=== PATIENT | female | born 1950 | race Caucasian/White ===

== ENCOUNTER → 2017-05-21 | Outpatient (CLI) | payer MEDICARE, BC, OTHER ==
--- NOTE | 2017-05-22 09:20 | MM ---
Reason for exam: screening (asymptomatic). Last mammogram was performed 1 year and 1 month ago. History: Patient is postmenopausal. Family history of premenopausal breast cancer in maternal grandmother. Physical Findings: A clinical breast exam by your physician is recommended on an annual basis and results should be correlated with mammographic findings. MG 3D Screening Mammo W/Cad Bilateral CC and MLO view(s) were taken. XCCL view(s) were taken of the left breast. Prior study comparison: April 21, 2016, bilateral MG 3d screening mammo w/cad. March 06, 2015, bilateral MG screening mammo w CAD. There are scattered fibroglandular densities. There is no discrete abnormality. ASSESSMENT: Negative, BI-RAD 1 RECOMMENDATION: Routine screening mammogram of both breasts in 1 year.
== END | disposition home or self-care (01) ==
LOC: RADMAMWWP 06:57
PROVIDERS: ATTEND Family Medicine
DX: Z12.31 Encounter for screening mammogram for malignant neoplasm of breast (principal)
CPT/HCPCS: 77063; G0202

== ENCOUNTER → 2019-09-19 | Outpatient (CLI) | payer MEDICARE, OTHER ==
--- NOTE | 2019-09-19 13:25 | BD ---
EXAMINATION TYPE: Axial Bone Density DATE OF EXAM: 09/19/2019 COMPARISON: NONE CLINICAL HISTORY: M 85.80 Height: 60.5 Weight: 236 FRAX RISK QUESTIONS: Alcohol (3 or more units per day): no Family History (Parent hip fracture): no Glucocorticoids (More than 3mos): no (Ex: prednisone, prednisolone, methylprednisolone, dexamethasone, and hydrocortisone). History of Fracture in Adulthood: yes Secondary Osteoporosis: 1. Type 1 Diabetes: no 2. Hyperthyroidism: no 3. Menopause before 45: no 4. Malnutrition: no 5. Chronic liver disease: no Rheumatoid Arthritis: no Current Tobacco Use: no RISK FACTORS HISTORY OF: Family History of Osteoporosis: yes, sister Active: yes Diet low in dairy products/other sources of calcium: no Postmenopausal woman: yes Take estrogen and/or progesterone medications: no Lost more than 2 inches in height since high school: unsure, states height may have been about 63 inc hes at one time Frequent falls: no Poor Health: no Hyperparathyroidism: no Adrenal Insufficiency: no MEDICATIONS: Prednisone or other steroids: no Thyroid Medications: yes Which medication: Levothyroxine How Long: about 20 years Additional Medications: blood pressure med, cholesterol med Additional History: fx right ankle 2009 EXAM MEASUREMENTS: Bone mineral densitometry was performed using the [employer] System. Bone mineral density as measured about the Lumbar spine is: ----- L1-L4(G/cm2): 1.415 T Score Values are as follows: ----- L2: 1.4 ----- L3: 2.9 ----- L4: 3.3 ----- L1-L4: 2.0 Bone mineral density BASELINE Bone mineral density about the R hip (g/cm2): 0.891 Bone mineral density about the L hip (g/cm2): 0.903 T Score values are as follows: -----R Neck: -1.1 -----L Neck: -1.0 -----R Total: -0.1 -----L Total: 0.3 Bone mineral density BASELINE IMPRESSION: Osteopenia (T Score between -2.5 and -1). There is slightly increased risk of fracture and the patient may be considered for treatment. Re-Screen 2-5 years. NOTE: T-SCORE=SD OF THE YOUNG ADULT MEAN.
--- NOTE | 2019-09-19 13:48 | MM ---
Reason for exam: screening (asymptomatic). Last mammogram was performed 2 years and 4 months ago. History: Patient is postmenopausal. Family history of premenopausal breast cancer in maternal grandmother. Physical Findings: A clinical breast exam by your physician is recommended on an annual basis and results should be correlated with mammographic findings. MG 3D Screening Mammo W/Cad Bilateral CC and MLO view(s) were taken. XCCL view(s) were taken of the right breast. CV view(s) were taken of the left breast. Prior study comparison: May 21, 2017, bilateral MG 3d screening mammo w/cad. April 21, 2016, bilateral MG 3d screening mammo w/cad. There are scattered fibroglandular densities. There are benign appearing round linear calcifications bilaterally. There is no discrete abnormality. ASSESSMENT: Benign, BI-RAD 2 RECOMMENDATION: Routine screening mammogram of both breasts in 1 year.
== END | disposition home or self-care (01) ==
LOC: RADMAMWWP 09:41
PROVIDERS: ATTEND Family Medicine
DX: Z12.31 Encounter for screening mammogram for malignant neoplasm of breast (principal); M85.80 Other specified disorders of bone density and structure, unspecified site
CPT/HCPCS: 77063; 77067; 77080

== ENCOUNTER → 2019-09-27 | Outpatient (CLI) | payer MEDICARE, OTHER ==
--- NOTE | 2019-09-27 09:56 | XR ---
EXAMINATION TYPE: XR chest 2V DATE OF EXAM: 09/27/2019 COMPARISON: NONE TECHNIQUE: PA and lateral views submitted. HISTORY: Shortness of breath FINDINGS: The lungs are clear and there is no pneumothorax, pleural effusion, or focal pneumonia. Heart is en larged and is atherosclerotic change aorta. No overt failure. Arthropathy of the shoulders. Hypertrop hic and degenerative change of the spine. IMPRESSION: 1. Cardiomegaly without evidence of acute infiltrate or overt failure..
== END | disposition home or self-care (01) ==
LOC: RADXRYALE 08:35
PROVIDERS: ATTEND Physician Assistant Medical
DX: I51.7 Cardiomegaly (principal)
CPT/HCPCS: 71046

== ENCOUNTER 2019-11-01 12:06 | Inpatient (IN) | payer MEDICARE, OTHER ==
[2019-11-01] MEDS ORDERED: PANTOPRAZOLE 40 MG/10 ML VIAL IVP ONE (12:23)
--- NOTE | 2019-11-01 12:51 | ED ---
General Adult HPI - General Chief complaint: Recheck/Abnormal Lab/Rx Stated complaint: Needs blood transfusion Time Seen by Provider: 11/01/19 12:22 Source: patient Mode of arrival: ambulatory Limitations: no limitations - History of Present Illness Initial comments: Dictation was produced using [employer] dictation software. please excuse any grammatical, word or spelling errors. Chief Complaint: 69-year-old female with factor V Leiden deficiency, DVTs, mitral valve prolapse presents with abnormal outpatient labs. History of Present Illness: Patient is a 61-year-old female she was sent in by primary care physician. She was seen at her primary care physician's office yesterday for routine annual checkup. She was found to have low hemoglobin with a measurement approximately 5. She has been feeling fatigued and tired for the last 3 weeks. She associated this to her bronchitis initially. She received a call earlier today and was told to come to the emergency department for likely blood transfusion. She hadn't denies any bleeding. Denies any dark melanotic stools. No nausea vomiting. She has no pain complaints. Has had anemia when she was younger to her childbearing years. The ROS documented in this emergency department record has been reviewed and confirmed by me. Those systems with pertinent positive or negative responses have been documented in the HPI. All other systems are other negative and/or noncontributory. PHYSICAL EXAM: General Impression: Alert and oriented x3, not in acute distress, slight pallor HEENT: Normocephalic atraumatic, extra-ocular movements intact, pupils equal and reactive to light bilaterally, mucous membranes moist. Cardiovascular: Heart regular rate and rhythm, S1&S2 audible, no murmurs, rubs or gallops Chest: Lungs clear to auscultation bilaterally, no rhonchi, no wheeze, no rales Abdomen: Bowel sounds present, abdomen soft, non-tender, non-distended, no organomegaly Musculoskeletal: Pulses present and equal in all extremities, no peripheral edema Motor: no focal deficits noted Neurological: CN II-XII grossly intact, no focal motor or sensory deficits noted Skin: Intact with no visualized rashes Psych: Normal affect and mood ED course: 69-year-old female presents with abnormal outpatient lab. All signs upon arrival are within acceptable limits. After evaluation obtained. Hemoglobin 5.8, INR is 2.8. Patient is on Coumadin. She not actively hemorrhaging at this time. Rectal exam showed no gross blood. There was maybe a slight dark tinged to stool sample removed. Patient's well- appearing. She denies any back pain. No concern for retroperitoneal hematoma. Lactic acid level is 1.0. Patient ordered for transfusion of 1 unit. She is given vitamin K. Patient be admitted to telemetry for further monitoring. EKG interpretation: Ventricular rate 66, normal sinus rhythm, SC interval 140, care is 108, QTc 444. No SC prolongation, no QTC prolongation, no ST or T-wave changes noted. Overall, this EKG is unremarkable - Related Data Home Medications Medication Instructions Recorded Confirmed Losartan/Hydrochlorothiazide 1 tab PO HS 12/22/14 11/01/19 [Losartan-Hctz 100-25 mg Tab] Meloxicam 7.5 mg PO HS 12/22/14 11/01/19 Atorvastatin [Lipitor] 40 mg PO HS 06/21/15 11/01/19 Warfarin Sodium [Coumadin] 6 mg PO SUMOWETHSA@209906/21/15 11/01/19 Warfarin [Coumadin] 3 mg PO TUFR@209906/21/15 11/01/19 Furosemide [Lasix] 20 mg PO DAILY 11/01/19 11/01/19 Levothyroxine Sodium [Synthroid] 137 mcg PO DAILY 11/01/19 11/01/19 Omeprazole [PriLOSEC] 40 mg PO HS 11/01/19 11/01/19 rOPINIRole HCL 3 - 9 mg PO DIRECTED 11/01/19 11/01/19 Allergies Allergy/AdvReac Type Severity Reaction Status Date / Time codeine Allergy Swelling,mi Verified 11/01/19 13:26 graine morphine Allergy Swelling,mi Verified 11/01/19 13:26 graine nifedipine [From Procardia] Allergy Swelling,mi Verified 11/01/19 13:26 graine Review of Systems ROS Statement: Those systems with pertinent positive or pertinent negative responses have been documented in the HPI. ROS Other: All systems not noted in ROS Statement are negative. Past Medical History Past Medical History: Blood Disorder, Deep Vein Thrombosis (DVT), GERD/Reflux, Hyperlipidemia, Hypertension, Mitral Valve Prolapse (MVP), Osteoarthritis (OA), Pulmonary Embolus (PE), Thyroid Disorder Additional Past Medical History / Comment(s): migraines, MVP with regurgitation, hx ulcer, hiatal hernia, Factor V Leiden, varicose veins History of Any Multi-Drug Resistant Organisms: None Reported Past Surgical History: Bariatric Surgery, Bowel Resection, Cholecystectomy, Hernia Repair, Orthopedic Surgery Additional Past Surgical History / Comment(s): GASTRIC SLEEVE,ORIF RT ANKLE,"b owel release x 2",rt cataract, vena cava filter Past Anesthesia/Blood Transfusion Reactions: Postoperative Nausea & Vomiting (PONV) Additional Past Anesthesia/Blood Transfusion Reaction / Comment(s): post op migraine for 5 days Past Psychological History: No Psychological Hx Reported Smoking Status: Former smoker Past Alcohol Use History: None Reported Past Drug Use History: None Reported - Past Family History Father Family Medical History: Cancer Mother Family Medical History: Cancer General Exam Limitations: no limitations Course Vital Signs 11/01/19 11/01/19 12:17 13:46 Temperature 97.7 F Pulse Rate 64 66 Respiratory 17 16 Rate Blood Pressure 128/63 125/62 O2 Sat by Pulse 98 100 Oximetry Medical Decision Making - Lab Data Result diagrams: 11/01/19 13:20 Lab Results 11/01/19 11/01/19 11/01/19 Range/Units 13:20 13:20 13:20 WBC 4.3 (3.8-10.6) k/uL RBC 2.86 L (3.80-5.40) m/uL Hgb 5.8 L* (11.4-16.0) gm/dL Hct 19.2 L* (34.0-46.0) % MCV 67.2 L (80.0-100.0) fL MCH 20.3 L (25.0-35.0) pg MCHC 30.2 L (31.0-37.0) g/dL RDW 15.8 H (11.5-15.5) % Plt Count 264 (150-450) k/uL Neutrophils % 61 % Lymphocytes % 28 % Monocytes % 5 % Eosinophils % 2 % Basophils % 1 % Neutrophils # 2.7 (1.3-7.7) k/uL Lymphocytes # 1.2 (1.0-4.8) k/uL Monocytes # 0.2 (0-1.0) k/uL Eosinophils # 0.1 (0-0.7) k/uL Basophils # 0.1 (0-0.2) k/uL Hypochromasia Marked Poikilocytosis Moderate Microcytosis Marked PT 27.3 H (9.0-12.0) sec INR 2.8 H (<1.2) APTT 29.8 (22.0-30.0) sec Plasma Lactic Acid Joshua 1.0 (0.7-2.0) mmol/L Disposition Clinical Impression: Anemia Disposition: ADMITTED IP TO THIS HOSP Condition: Fair Referrals: Freeman Moran DO [Primary Care Provider] - 1-2 days Decision Time: 14:12
[2019-11-01 13:38] LABS: Basophils # (A) 0.1 k/uL (0-0.2); Basophils % (A) 1 %; Eosinophils # (A) 0.1 k/uL (0-0.7); Eosinophils % (A) 2 %; Hypochromasia Marked; Lymphocytes # (A) 1.2 k/uL (1.0-4.8); Lymphocytes % (A) 28 %; MCH 20.3 pg (25.0-35.0); MCHC 30.2 g/dL (31.0-37.0); MCV 67.2 fL (80.0-100.0); Mean Platelet Volume 7.3; Microcytosis Marked; Monocytes # (A) 0.2 k/uL (0-1.0); Monocytes % (A) 5 %; Neutrophils # (A) 2.7 k/uL (1.3-7.7); Neutrophils % (A) 61 %; Platelet Count 264 k/uL (150-450); Poikilocytosis Moderate; RBC 2.86 m/uL (3.80-5.40); RDW 15.8 % (11.5-15.5); WBC 4.3 k/uL (3.8-10.6)
[2019-11-01 13:47] LABS: INR 2.8 (<1.2); Partial Thromboplastin Time 29.8 sec (22.0-30.0); Prothrombin Time 27.3 sec (9.0-12.0)
[2019-11-01 14:02] LABS: HCT 19.2 % (34.0-46.0); HGB 5.8 gm/dL (11.4-16.0)
[2019-11-01] MEDS ORDERED: PHYTONADIONE 10 MG in SODIUM CHLORIDE 0.9% 50 ML IVPB STA (14:06)
[2019-11-01] MEDS ORDERED: ONDANSETRON 4 MG/2 ML VIAL IVP PRN (14:10)
[2019-11-01] MEDS ORDERED: NALOXONE 0.4 MG/ML 1 ML VIAL IV PRN (14:10)
[2019-11-01 14:14] LABS: Calcium 9.1 mg/dL (8.4-10.2); Magnesium 2.1 mg/dL (1.6-2.3); Potassium 3.8 mmol/L (3.5-5.1)
[2019-11-01 14:44] LABS: Appearance,Urine Clear (Clear); Bilirubin,Urine Negative (Negative); Blood,Urine Negative (Negative); Color,Urine Light Yellow; Glucose,Urine (UA) Negative (Negative); Ketones,Urine Negative (Negative); Leukocyte Esterase,Urine Negative (Negative); Nitrite,Urine Negative (Negative); PH, Urine 6.5 (5.0-8.0); Protein,Urine Negative (Negative); Specific Gravity,Urine 1.007 (1.001-1.035); Urobilinogen,Urine <2.0 mg/dL (<2.0)
[2019-11-01] MEDS: SODIUM CHLORIDE 0.9% 1,000 ML IV SCH ×2 (14:54→19:59)
[2019-11-01] MEDS ORDERED: ALPRAZolam 0.25 MG TAB PO PRN (17:04)
[2019-11-01] MEDS ORDERED: TEMAZEPAM 15 MG CAP PO PRN (17:04)
[2019-11-01 17:09] LABS: Glucose,Whole Blood 100 mg/dL (75-99)
--- NOTE | 2019-11-01 17:33 | XR ---
EXAMINATION TYPE: XR chest 1V portable DATE OF EXAM: 11/01/2019 COMPARISON: 09/27/2019 HISTORY: Cough TECHNIQUE: Single view. FINDINGS: There is no heart failure nor confluent pneumonic infiltrate. Costophrenic angles are clear. There ar e chest leads. Thoracic aorta is atheromatous. IMPRESSION: No active cardiopulmonary disease. No change. Borderline cardiomegaly.
[2019-11-01] MEDS: PANTOPRAZOLE 40 MG/10 ML VIAL IVP SCH (18:04)
--- NOTE | 2019-11-01 19:00 | HP ---
HISTORY AND PHYSICAL DATE OF SERVICE: 11/01/2019. CHIEF COMPLAINTS: Weakness and anemia. HISTORY OF PRESENT ILLNESS: This 69-year-old woman with a past medical history of multiple medical problems, including history of factor V Leiden deficiency, history of DVT, GERD, hypertension, hyperlipidemia, history of mitral prolapse, history of pulmonary embolism, history of migraine, history of bariatric surgery, history of bowel resection, history of gastric sleeve, being followed by Dr. Moran in the outpatient setting, was taking Coumadin at home. The patient was sent in by the primary physician, where the patient was found to have low hemoglobin of approximately 5. The patient was complaining of weakness and tiredness recently. The patient also was taking a steroid course recently and was feeling increasingly fatigued and also had bronchitis recently. The patient also reports the she was feeling puffy and had gained some weight. Evaluation in the emergency room showed hemoglobin of 5.8, which is a drastic drop from 12.3 in the computer, and INR was 2.8. The patient was being planned to be given a unit of transfusion. Vitamin K was also given. The creatinine was 1.39 and the patient was admitted for further evaluation and treatment. There is no history of any fever, rigor or chills. No history of headache, loss of consciousness, seizures. Stool OB was positive. There is no obvious GI bleeding history of melena or melenic stools at this time. PAST MEDICAL HISTORY: Factor V Leiden deficiency, history of DVT, hypertension, hyperlipidemia, mitral valve prolapse, history of pulmonary embolism, history of migraines with weakness, mitral regurgitation. HOME MEDICATIONS: 1. Requip 3 to 9 mg p.r.n. 2. Lipitor 40 mg at bedtime. 3. Synthroid 137 mcg p.o. daily. 4. Lasix 20 mg p.o. daily. 5. Coumadin 3 mg Thursday, Thursday. 6. Coumadin 6 mg Thursday, Thursday, Thursday, , Thursday. 7. Prilosec 40 mg at bedtime. 8. Meloxicam 7.5 mg at bedtime. 9. Losartan/hydrochlorothiazide 1 tablet p.o. at bedtime. ALLERGIES: CODEINE, MORPHINE, NIFEDIPINE. FAMILY HISTORY: History of cancer in the family. SOCIAL HISTORY: Previous history of smoking. No history of alcohol intake. REVIEW OF SYSTEMS: ENT: Diminished hearing. Diminished vision. CARDIOVASCULAR SYSTEM: No angina, palpitations. RESPIRATORY SYSTEM: As mentioned earlier. GI: As mentioned earlier. : No dysuria or retention. NERVOUS SYSTEM: Generalized weakness. ALLERGY/IMMUNOLOGY: No asthma, hayfever. MUSCULOSKELETAL: As mentioned earlier. HEMATOLOGY/ONCOLOGY: As mentioned earlier. ENDOCRINE: Hypothyroidism. CONSTITUTIONAL: As mentioned earlier. DERMATOLOGY: Negative. RHEUMATOLOGY: Negative. PSYCHIATRY: As mentioned earlier. PHYSICAL EXAMINATION: Patient alert and oriented x3. Pulse is 70, blood pressure 116/48, respiration 18, temperature 98.6, pulse ox 99% on room air. HEENT: Conjunctivae pale. Oral mucosa moist. Facial puffiness present. NECK: No jugular venous distention. No carotid bruit. No lymph node enlargement. CARDIOVASCULAR SYSTEM: S1, S2 muffled. Ejection systolic murmur present. RESPIRATORY SYSTEM: Breath sounds diminished at the bases. No rhonchi. No crackles. ABDOMEN: Soft, obese, non-tender. No mass palpable. LEGS: Minimal bilateral leg edema. NERVOUS SYSTEM: Higher functions as mentioned earlier. Moves all 4 limbs. No focal motor or sensory deficit. LYMPHATICS: No lymph node palpable in neck, axillae or groin. SKIN: As mentioned earlier. JOINTS: No active deforming arthropathy. LYMPHATICS: No lymph node palpable in neck, axillae or groin. LABS: WBC 4.3, hemoglobin 5.8, MCV 67.2. INR 2.8. Creatinine 1.39. ASSESSMENT: 1. Anemia, microcytic, possibly acute on chronic gastrointestinal bleed, symptomatic. 2. Coumadin monitoring. 3. Hyponatremia. 4. Increased creatinine with chronic kidney disease, stage III possibly. 5. Stool occult blood positive. 6. History of factor V Leiden deficiency. 7. History of deep venous thrombosis. 8. History of gastroesophageal reflux disease. 9. Hypertension. 10.Hyperlipidemia. 11.History of mitral valve prolapse with mitral regurgitation. 12.History of degenerative joint disease. 13.History of pulmonary embolism. 14.Hypothyroidism. 15.History of hiatal hernia. 16.History of varicose veins. 17.History of bariatric surgery. 18.History of bowel resection. 19.History of cholecystectomy. 20.History of gastric sleeve surgery. 21.History of cataracts. 22.Remote history of nicotine dependence. 23.Obesity with body mass index of 44.7. RECOMMENDATIONS AND DISCUSSION: In this 69-year-old woman who presented with multiple complex medical issues, we will monitor the patient closely, continue the current medications. Exact etiology of anemia is unknown at this time. GI bleed is highly likely in this patient who is taking Coumadin for some time. I would recommend one unit transfusion with Lasix 40 after that. Otherwise, I would also recommend H&H q.12 and transfuse if hemoglobin is less than 7. Watch for any active bleeding ulcers. Gastroenterology consultation. I would recommend hematology/oncology consultation as well because the patient was on Coumadin because of multiple hematological reasons, as mentioned earlier. Otherwise, repeat labs, including creatinine, will be ordered. Prognosis is guarded because of multiple complex medical issues. Further recommendations to follow. A copy of this dictation is being forwarded to Dr. Moran, who is the primary physician. See orders for details. Hold anticoagulants, antiplatelets and any NSAIDs currently at this time. Empiric proton pump inhibitors have been recommended. Continue with DVT prophylaxis. Further recommendations to follow. Discussed with the patient, who understands and agrees. Further recommendations to follow. Will cut down the IV fluids. MMODL / IJN: [id number] / MTDRoger
[2019-11-01] MEDS: ATORVASTATIN 40 MG TAB PO SCH (19:59)
[2019-11-01] MEDS ORDERED: PANTOPRAZOLE 40 MG TABLET PO SCH (21:00)
[2019-11-02 00:05] LABS: Reticulocyte % 1.88 % (0.10-1.80)
[2019-11-02] MEDS: LOSARTAN-HCTZ 50-12.5 MG 1 EACH TAB PO SCH ×2 (00:20→20:24)
[2019-11-02 00:25] LABS: Anisocytosis Slight; Basophils % (A) 1 %; Eosinophils # (A) 0.2 k/uL (0-0.7); Eosinophils % (A) 4 %; Hypochromasia Marked; Lymphocytes # (A) 1.5 k/uL (1.0-4.8); Lymphocytes % (A) 31 %; MCH 20.7 pg (25.0-35.0); MCV 68.9 fL (80.0-100.0); Mean Platelet Volume 7.6; Microcytosis Marked; Monocytes # (A) 0.4 k/uL (0-1.0); Monocytes % (A) 8 %; Neutrophils # (A) 2.5 k/uL (1.3-7.7); Neutrophils % (A) 53 %; Platelet Count 240 k/uL (150-450); Poikilocytosis Moderate; RBC 3.04 m/uL (3.80-5.40); RDW 16.9 % (11.5-15.5); WBC 4.7 k/uL (3.8-10.6)
[2019-11-02 00:35] LABS: HGB 6.3 gm/dL (11.4-16.0)
[2019-11-02 01:16] LABS: % Iron Saturation 2.19 (12.00-45.00)
[2019-11-02] MEDS: LEVOTHYROXINE 137 MCG TAB PO SCH (05:34)
[2019-11-02 06:52] LABS: INR 1.3 (<1.2); Prothrombin Time 12.9 sec (9.0-12.0)
[2019-11-02 07:09] LABS: Calcium 8.9 mg/dL (8.4-10.2); Potassium 3.8 mmol/L (3.5-5.1)
[2019-11-02 07:38] LABS: Anisocytosis Slight; HCT 24.1 % (34.0-46.0); HGB 7.4 gm/dL (11.4-16.0); Hypochromasia Marked; MCH 22.3 pg (25.0-35.0); MCHC 30.8 g/dL (31.0-37.0); MCV 72.6 fL (80.0-100.0); Mean Platelet Volume 7.7; Microcytosis Moderate; Platelet Count 255 k/uL (150-450); Poikilocytosis Marked; RBC 3.33 m/uL (3.80-5.40); RDW 17.3 % (11.5-15.5); WBC 3.9 k/uL (3.8-10.6)
[2019-11-02] MEDS: FUROSEMIDE 20 MG TAB PO SCH (08:59)
[2019-11-02] MEDS: PANTOPRAZOLE 40 MG/10 ML VIAL IVP SCH (08:59)
[2019-11-02] MEDS: ACETAMINOPHEN TAB 325 MG TAB PO PRN (09:12)
[2019-11-02 09:20] LABS: Eosinophils # (M) 0.04 k/uL (0-0.7); Lymphocytes # (M) 1.33 k/uL (1.0-4.8); Monocytes # (M) 0.16 k/uL (0-1.0); Neutrophils # (M) 2.38 k/uL (1.3-7.7); Neutrophils % (M) 61 %; Nucleated Red Blood Cells 0 /100 WBC (0-0); Total Cells Counted 100
[2019-11-02] MEDS: SODIUM FERRIC GLUCONAT-SUCROSE 125 MG in SODIUM CHLORIDE 0.9% 100 ML IVPB SCH (10:12)
--- NOTE | 2019-11-02 17:53 | PN ---
PROGRESS NOTE DATE OF SERVICE: 11/02/2019 This 69-year-old woman who was admitted with weakness and anemia is being closely monitored at this time. Patient also has elevated creatinine, indicating renal failure. Hemoglobin was 5.8 and 6.3. Currently it is 7.4. The patient has received 2 units of transfusion. No chest pain. No palpitations. No fever. PHYSICAL EXAMINATION: Alert and oriented x3. Pulse 72, blood pressure 120/70, respiration 12, temperature 98.2, pulse ox 98% on room air. HEENT: Conjunctivae pale. NECK: No jugular venous distention. CARDIOVASCULAR SYSTEM: S1, S2 muffled. RESPIRATORY SYSTEM: Breath sounds diminished at the bases. A few scattered rhonchi. ABDOMEN: Soft, non-tender. LEGS: No edema. No swelling. NERVOUS SYSTEM: Diffusely weak. LABS: WBC 3.9, hemoglobin 7.4. INR is 1.3. Sodium is 136. Stool OB is positive. ASSESSMENT: 1. Anemia, microcytic; possibly acute on chronic gastrointestinal bleed, symptomatic. 2. Status post multiple transfusions. 3. Anemia; possibly blood-loss anemia. 4. Coumadin monitoring. 5. Hyponatremia. 6. Increased creatinine with chronic kidney disease, stage III possibly. 7. Stool OB positive. 8. History of factor V Leiden deficiency. 9. History of deep venous thrombosis. 10.History of gastroesophageal reflux disease. 11.Hypertension. 12.Hyperlipidemia. 13.History of mitral valve prolapse with mitral regurgitation. 14.History of degenerative joint disease. 15.History of pulmonary embolism. 16.Hypothyroidism. 17.History of hiatal hernia. 18.History of varicose veins. 19.History of bariatric surgery. 20.History of bowel resection. 21.History of cholecystectomy. 22.History of gastric sleeve surgery. 23.History of cataracts. 24.Remote history of nicotine dependence. 25.Obesity with body mass index of 44.7. RECOMMENDATIONS AND DISCUSSION: I recommend to continue current medications, continue with the monitoring, symptomatic treatment. Otherwise, repeat hemoglobin. GI consultation. Possible upper endoscopy. Dr. Mendez was also consulted. Guarded prognosis. Further recommendations to follow. MMODL / IJN: [id number] /
[2019-11-02] MEDS: ATORVASTATIN 40 MG TAB PO SCH (20:23)
[2019-11-03] MEDS: SODIUM CHLORIDE 0.9% 1,000 ML IV SCH (00:32)
--- NOTE | 2019-11-03 00:43 | P.CONS ---
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 She was subsequently diagnosed with factor V Leiden mutation. She has been on coumadin long-term since her PE and was recommended lifetime anticoagulation. she has not had any recurrence of DVT or PE since. She has been seen intermittently in the office usually for recommendations regarding anticoagulation related to her upcoming surgeries. Pt had temporary filter placed 11/21/11 this was in preparation for gastric bypass surgery which was 12/15/11. Pt had temporary filter removed 03/16/12. She was referred by Dr Viramontes for pre surgical clearance in 2014. She had been having progressive issues wih reflux, and a gastric bypass was planned. She was seen on 01/12/15. It was recommended that the patient have a temporary filter placed for the surgery, interrupted anticoagulation prior and then resume after surgery. It was also recommended that the filter be removed after surgery once the patient is back on anticoagulation. The patient did not follow-up in the office after 01/03. She states that she did have a filter placement this was a prominent 1. She subsequently became nervous and actually canceled the surgery!. She has continued on Coumadin and does home monitoring with dose adjustment by her PCP. She states that INR control has been mostly satisfactory with lower levels, generally related to dietary infractions. She does not recall any period of significantly higher than desired INRs. The patient had been feeling somewhat fatigued over the past 3 weeks. She was seen by her PCP for a regular visit and was found to have low hemoglobin in the 5 range. She was therefore sent in to the emergency room. She reported dark and occasionally black stools over the past 2-3 weeks. No other bleeding noted. Consult was therefore placed for further evaluation and recommendations Review of Systems Constitutional: Reports fatigue Eyes: denies blurred vision, denies pain Ears: deny: decreased hearing, ear discharge, earache, tinnitus Ears, nose, mouth and throat: Denies headache, Denies sore throat Cardiovascular: Reports decreased exercise tolerance Respiratory: Denies cough Gastrointestinal: Reports melena Genitourinary: Denies dysuria, Denies hematuria Menstruation: Reports postmenopausal Musculoskeletal: Reports muscle weakness Integumentary: Denies pruritus, Denies rash Neurological: Reports weakness Psychiatric: Denies anxiety, Denies depression Endocrine: Reports fatigue Hematologic/Lymphatic: Reports thrombophilia Allergic/Immunologic: Reports as per HPI Past Medical History Past Medical History: Blood Disorder, Deep Vein Thrombosis (DVT), GERD/Reflux, Hyperlipidemia, Hypertension, Mitral Valve Prolapse (MVP), Osteoarthritis (OA), Pulmonary Embolus (PE), Thyroid Disorder Additional Past Medical History / Comment(s): migraines, MVP with regurgitation, hx ulcer, hiatal hernia, Factor V Leiden, varicose veinstakes coumadin at home History of Any Multi-Drug Resistant Organisms: None Reported Past Surgical History: Bariatric Surgery, Bowel Resection, Cholecystectomy, Hernia Repair, Orthopedic Surgery Additional Past Surgical History / Comment(s): GASTRIC SLEEVE,ORIF RT ANKLE,"bowel release x 2",rt cataract, vena cava filter Past Anesthesia/Blood Transfusion Reactions: Postoperative Nausea & Vomiting (PONV) Additional Past Anesthesia/Blood Transfusion Reaction / Comm: post op migraine for 5 days Past Psychological History: No Psychological Hx Reported Smoking Status: Former smoker Past Alcohol Use History: None Reported Past Drug Use History: None Reported - Past Family History Father Family Medical History: Cancer Mother Family Medical History: Cancer Medications and Allergies Home Medications Medication Instructions Recorded Confirmed Type Losartan/Hydrochlorothiazide 1 tab PO HS 12/22/14 11/01/19 History [Losartan-Hctz 100-25 mg Tab] Meloxicam 7.5 mg PO HS 12/22/14 11/01/19 History Atorvastatin [Lipitor] 40 mg PO HS 06/21/15 11/01/19 History Warfarin Sodium [Coumadin] 6 mg PO SUMOWETHSA@209906/21/15 11/01/19 History Warfarin [Coumadin] 3 mg PO TUFR@209906/21/15 11/01/19 History Furosemide [Lasix] 20 mg PO DAILY 11/01/19 11/01/19 History Levothyroxine Sodium [Synthroid] 137 mcg PO DAILY 11/01/19 11/01/19 History Omeprazole [PriLOSEC] 40 mg PO HS 11/01/19 11/01/19 History rOPINIRole HCL 3 - 9 mg PO DIRECTED 11/01/19 11/01/19 History Allergies Allergy/AdvReac Type Severity Reaction Status Date / Time codeine Allergy Swelling,mi Verified 11/01/19 13:26 graine morphine Allergy Swelling,mi Verified 11/01/19 13:26 graine nifedipine [From Procardia] Allergy Swelling,mi Verified 11/01/19 13:26 graine Physical Exam Vitals: Vital Signs Temp Pulse Pulse Resp BP BP BP 11/02/19 16:29 62 12 11/02/19 16:21 97.8 F 62 12 126/60 11/02/19 13:52 98.2 F 72 12 126/70 11/02/19 13:48 12 11/02/19 11:09 98 F 64 18 124/71 11/02/19 08:00 97.9 F 62 18 129/65 11/02/19 05:21 98.4 F 62 18 118/77 11/02/19 04:00 68 18 11/02/19 03:52 97.8 F 60 18 113/59 11/02/19 03:03 98 F 60 16 121/65 11/02/19 02:33 97.8 F 64 18 118/60 11/02/19 02:23 97.4 F L 62 18 118/53 11/02/19 01:05 98.2 F 77 20 126/61 11/02/19 00:00 98.3 F 68 18 103/48 11/01/19 20:00 98.2 F 77 18 126/61 11/01/19 18:00 97.9 F 71 18 104/37 11/01/19 17:25 99.0 F 70 18 127/53 Pulse Ox 11/02/19 16:29 11/02/19 16:21 97 11/02/19 13:52 98 11/02/19 13:48 11/02/19 11:09 94 L 11/02/19 08:00 99 11/02/19 05:21 94 L 11/02/19 04:00 11/02/19 03:52 98 11/02/19 03:03 95 11/02/19 02:33 95 11/02/19 02:23 98 11/02/19 01:05 99 11/02/19 00:00 98 11/01/19 20:00 99 02/11/20 18:00 100 11/01/19 17:25 98 Intake and Output 11/02/19 11/02/19 11/02/19 06:59 14:59 22:59 Intake Total 530 Balance 530 Intake: Intake, IV Titration 100 Amount Sodium Chloride 0.9% 1, 100 000 ml @ 20 mls/hr IV . Q24H [facility] Rx#:[id number] Oral 120 Blood Product 310 Rc As-1 Unit 310 [id number] Other: Voiding Method Toilet # Voids 2 Weight 104 kg - Constitutional General appearance: no acute distress - EENT Eyes: EOMI, PERRLA ENT: hearing grossly normal, normal oropharynx - Neck Neck: no lymphadenopathy Thyroid: bilateral: normal size - Respiratory Respiratory: bilateral: CTA - Cardiovascular Rhythm: regular Heart sounds: normal: S1, S2 - Gastrointestinal General gastrointestinal: normal bowel sounds, soft - Integumentary Integumentary: normal - Neurologic Neurologic: CNII-XII intact - Musculoskeletal Musculoskeletal: strength equal bilaterally - Psychiatric Psychiatric: A&O x's 3, appropriate affect Results CBC & Chem 7: 11/02/19 06:11 11/02/19 06:11 Labs: Abnormal Lab Results - Last 24 Hours (Table) 11/01/19 11/01/19 11/01/19 Range/Units 13:20 13:20 13:20 RBC (3.80-5.40) m/uL Hgb (11.4-16.0) gm/dL Hct (34.0-46.0) % MCV (80.0-100.0) fL MCH (25.0-35.0) pg MCHC (31.0-37.0) g/dL RDW (11.5-15.5) % Retic Count 1.88 H (0.10-1.80) % PT (9.0-12.0) sec INR (<1.2) Sodium (137-145) mmol/L BUN (7-17) mg/dL Creatinine (0.52-1.04) mg/dL Iron 10 L (50-170) ug/dL % Saturation 2.19 L (12.00-45.00) Ferritin 3.0 L (10.0-291.0) ng/mL RBC Folate (280 - 791) ng/mL Crossmatch See Detail 11/01/19 11/01/19 11/02/19 Range/Units 13:20 23:57 06:11 RBC 3.04 L 3.33 L (3.80-5.40) m/uL Hgb 6.3 L* 7.4 L (11.4-16.0) gm/dL Hct 21.0 L 24.1 L (34.0-46.0) % MCV 68.9 L 72.6 L (80.0-100.0) fL MCH 20.7 L 22.3 L (25.0-35.0) pg MCHC 30.0 L 30.8 L (31.0-37.0) g/dL RDW 16.9 H 17.3 H (11.5-15.5) % Retic Count (0.10-1.80) % PT (9.0-12.0) sec INR (<1.2) Sodium (137-145) mmol/L BUN (7-17) mg/dL Creatinine (0.52-1.04) mg/dL Iron (50-170) ug/dL % Saturation (12.00-45.00) Ferritin (10.0-291.0) ng/mL RBC Folate 1,633 H (280 - 791) ng/mL Crossmatch 11/02/19 11/02/19 Range/Units 06:11 06:11 RBC (3.80-5.40) m/uL Hgb (11.4-16.0) gm/dL Hct (34.0-46.0) % MCV (80.0-100.0) fL MCH (25.0-35.0) pg MCHC (31.0-37.0) g/dL RDW (11.5-15.5) % Retic Count (0.10-1.80) % PT 12.9 H (9.0-12.0) sec INR 1.3 H (<1.2) Sodium 136 L (137-145) mmol/L BUN 25 H (7-17) mg/dL Creatinine 1.29 H (0.52-1.04) mg/dL Iron (50-170) ug/dL % Saturation (12.00-45.00) Ferritin (10.0-291.0) ng/mL RBC Folate (280 - 791) ng/mL Crossmatch Chest x-ray: report reviewed Assessment and Plan (1) Anemia Narrative/Plan: the patient is presenting with severe anemia that appears to be due to iron deficiency. Clinically this is most likely due to GI blood loss. Her last colonoscopy was about 2-3 years ago, while last EGD was in early 2014 - Agree with transfusion to keep hemoglobin greater than 7 Patient will need a GI workup. GI is on consult with workup planned in the near future Anticoagulation is appropriately on hold. 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 As best as she can recollect, these were all provoked. However based on her history of recurrence, and diagnosis of factor V Leiden mutation indefinite anticoagulation was recommended. She has never had any issues with tolerance before Even with a hypercoagulable condition, if her episodes are provoked, cessation of anticoagulation can be considered if the patient falls in a favorable risk group and/or has adverse events. However it would be difficult to establish now if all for episodes or not. The patient herself would feel much safer with continuing anticoagulation. We will await results of the GI workup. If the patient is found to have a treatable cause then she can resume anticoagulation if that cause can be removed. If EGD and colonoscopy are negative, then she likely has small bowel related blood loss. In that case the management would be aggressive iron supplementation. In that situation the patient can be potentially resumed on anticoagulation with close monitoring and aggressive iron supplementation, including IV. However if she develops significant recurrent anemia despite aggressive supplementation, then she would need to be discontinued. She expressed understanding of the same. Await results of GI workup for further recommendations Current Visit: Yes Status: Acute Code(s): D68.59 - OTHER PRIMARY THROMBOPHIL IA SNOMED Code(s): 043628072 Plan: Defer to the admitting service for management of her other medical problems
[2019-11-03] MEDS: ACETAMINOPHEN TAB 325 MG TAB PO PRN ×2 (03:06→13:15)
[2019-11-03 05:59] LABS: Anisocytosis Slight; Basophils % (A) 1 %; Eosinophils # (A) 0.2 k/uL (0-0.7); Eosinophils % (A) 3 %; HCT 25.5 % (34.0-46.0); HGB 7.8 gm/dL (11.4-16.0); Hypochromasia Marked; Lymphocytes # (A) 1.4 k/uL (1.0-4.8); Lymphocytes % (A) 24 %; MCH 22.2 pg (25.0-35.0); MCHC 30.5 g/dL (31.0-37.0); MCV 72.8 fL (80.0-100.0); Mean Platelet Volume 8.3; Microcytosis Moderate; Monocytes # (A) 0.4 k/uL (0-1.0); Monocytes % (A) 6 %; Neutrophils # (A) 3.6 k/uL (1.3-7.7); Neutrophils % (A) 62 %; Platelet Count 240 k/uL (150-450); Poikilocytosis Marked; RDW 18.2 % (11.5-15.5); WBC 5.8 k/uL (3.8-10.6)
[2019-11-03 06:07] LABS: INR 1.1 (<1.2)
[2019-11-03 06:11] LABS: Calcium 9.1 mg/dL (8.4-10.2); Potassium 3.7 mmol/L (3.5-5.1)
[2019-11-03] MEDS: LEVOTHYROXINE 137 MCG TAB PO SCH (06:23)
--- NOTE | 2019-11-03 07:32 | P.CONS ---
History of Present Illness - Reason for Consult Consult date: 11/02/19 Anemia Requesting physician: Hillary Álvarez - Chief Complaint Abnormal hemoglobin lab draw - History of Present Illness 69-year-old female with multiple medical comorbidities including mitral valve prolapse, hyperlipidemia, hypertension, prior DVT/PE, factor V Leiden disorder and GERD who presented to the hospital due to abnormal outpatient blood draw. The patient reports that she was feeling weak and saw her primary care physician with laboratory evaluation performed in the outpatient setting. Initially she had attributed the weakness to a recent bout of bronchitis. However, she was found to have a hemoglobin of 5.8 on laboratory evaluation. The patient is on chronic anticoagulation therapy due to her history of active 5 Leiden disorder. She reports that bowel movements have remained normal daily with no gross bleeding. She did have one dark bowel movement a few days ago. She denies any regular NSAID use, except for Mobitz which she takes nightly. Previously she had EGD on 12/2014 prior to her sleeve gastrectomy which showed gastritis and a hiatal hernia. Colonoscopy was performed in 09/2018 and significant for polyps. Stool testing on presentation was positive. Laboratory evaluation significant for WBC 3.9, hemoglobin 7.4, platelet count 255,000, INR 1.3 from 2.8 on admission, reticulocyte count 1.8, and total iron 10. Review of Systems REVIEW OF SYSTEMS: CONSTITUTIONAL: Denies any fevers, chills, weight change but had reported fatigue and generalized weakness. CARDIOVASCULAR: Denies any chest pain, palpitations high or low blood pressures RESPIRATORY: Denies any shortness of breath, hemoptysis or cough. GENITOURINARY: No dysuria or hematuria. MUSCULOSKELETAL: No focal weakness reported. SKIN: Denies any new rashes or lesions, jaundice or pallor. PSYCHIATRIC: Denies any depression or anxiety. NEUROLOGY: Denies headache, denies any new focal deficits. EARS/NOSE/THROAT: No recent hearing change, congestion, nasal discharge or sore throat. EYES: No pain in eyes, discharge or change in vision. GASTROINTESTINAL: As per HPI. Past Medical History Past Medical History: Blood Disorder, Deep Vein Thrombosis (DVT), GERD/Reflux, Hyperlipidemia, Hypertension, Mitral Valve Prolapse (MVP), Osteoarthritis (OA), Pulmonary Embolus (PE), Thyroid Disorder Additional Past Medical History / Comment(s): migraines, MVP with regurgitation, hx ulcer, hiatal hernia, Factor V Leiden, varicose veinstakes coumadin at home History of Any Multi-Drug Resistant Organisms: None Reported Past Surgical History: Bariatric Surgery, Bowel Resection, Cholecystectomy, Zach ia Repair, Orthopedic Surgery Additional Past Surgical History / Comment(s): GASTRIC SLEEVE,ORIF RT ANKLE,"bowel release x 2",rt cataract, vena cava filter Past Anesthesia/Blood Transfusion Reactions: Postoperative Nausea & Vomiting (PONV) Additional Past Anesthesia/Blood Transfusion Reaction / Comm: post op migraine for 5 days Past Psychological History: No Psychological Hx Reported Smoking Status: Former smoker Past Alcohol Use History: None Reported Past Drug Use History: None Reported - Past Family History Father Family Medical History: Cancer Mother Family Medical History: Cancer Medications and Allergies Home Medications Medication Instructions Recorded Confirmed Type Losartan/Hydrochlorothiazide 1 tab PO HS 12/22/14 11/01/19 History [Losartan-Hctz 100-25 mg Tab] Meloxicam 7.5 mg PO HS 12/22/14 11/01/19 History Atorvastatin [Lipitor] 40 mg PO HS 06/21/15 11/01/19 History Warfarin Sodium [Coumadin] 6 mg PO SUMOWETHSA@2100 06/21/15 11/01/19 History Warfarin [Coumadin] 3 mg PO TUFR@2100 06/21/15 11/01/19 History Furosemide [Lasix] 20 mg PO DAILY 11/01/19 11/01/19 History Levothyroxine Sodium [Synthroid] 137 mcg PO DAILY 11/01/19 11/01/19 History Omeprazole [PriLOSEC] 40 mg PO HS 11/01/19 11/01/19 History rOPINIRole HCL 3 - 9 mg PO DIRECTED 11/01/19 11/01/19 History Allergies Allergy/AdvReac Type Severity Reaction Status Date / Time codeine Allergy Swelling,mi Verified 11/01/19 13:26 graine morphine Allergy Swelling,mi Verified 11/01/19 13:26 graine nifedipine [From Procardia] Allergy Swelling,mi Verified 11/01/19 13:26 graine Physical Exam Vitals: Vital Signs Temp Pulse Pulse Resp BP BP BP 11/02/19 19:35 98 F 64 16 125/64 11/02/19 19:30 16 11/02/19 16:29 62 12 11/02/19 16:21 97.8 F 62 12 126/60 11/02/19 13:52 98.2 F 72 12 126/70 11/02/19 13:48 12 11/02/19 11:09 98 F 64 18 124/71 11/02/19 08:00 97.9 F 62 18 129/65 11/02/19 05:21 98.4 F 62 18 118/77 11/02/19 04:00 68 18 11/02/19 03:52 97.8 F 60 18 113/59 11/02/19 03:03 98 F 60 16 121/65 11/02/19 02:33 97.8 F 64 18 118/60 11/02/19 02:23 97.4 F L 62 18 118/53 11/02/19 01:05 98.2 F 77 20 126/61 11/02/19 00:00 98.3 F 68 18 103/48 Pulse Ox 11/02/19 19:35 97 11/02/19 19:30 11/02/19 16:29 11/02/19 16:21 97 11/02/19 13:52 98 11/02/19 13:48 11/02/19 11:09 94 L 11/02/19 08:00 99 11/02/19 05:21 94 L 11/02/19 04:00 11/02/19 03:52 98 11/02/19 03:03 95 11/02/19 02:33 95 11/02/19 02:23 98 11/02/19 01:05 99 11/02/19 00:00 98 Intake and Output 11/02/19 11/02/19 11/02/19 06:59 14:59 22:59 Intake Total 530 840 Balance 530 840 Intake: Intake, IV Titration 100 Amount Sodium Chloride 0.9% 1, 100 000 ml @ 20 mls/hr IV . Q24H [facility] Rx#:[id number] Oral 120 840 Blood Product 310 Rc As-1 Unit 310 [id number] Other: Voiding Method Toilet # Voids 2 Weight 104 kg On physical examination, patient appears comfortable in no apparent distress. HEAD: Normocephalic, atraumatic. EYES: No scleral icterus. No conjunctival injection. MOUTH: No lesions, tongue midline. NECK: Trachea midline, no gross abnormalities. CHEST: Clear to auscultation with no wheezing or rhonchi appreciated. HEART: S1-S2 appreciated. ABDOMEN: Soft, obese and nontender to palpation. Bowel sounds are positive. No organomegaly. No guarding or rigidity. EXTREMITIES: No pedal edema. SKIN: No rashes, no jaundice. NEUROLOGIC: Alert and oriented x3. No focal deficits. Results CBC & Chem 7: 11/03/19 05:46 11/03/19 05:46 Labs: Abnormal Lab Results - Last 24 Hours (Table) 11/01/19 11/01/19 11/01/19 Range/Units 13:20 13: 13:20 RBC (3.80-5.40) m/uL Hgb (11.4-16.0) gm/dL Hct (34.0-46.0) % MCV (80.0-100.0) fL MCH (25.0-35.0) pg MCHC (31.0-37.0) g/dL RDW (11.5-15.5) % Retic Count 1.88 H (0.10-1.80) % PT (9.0-12.0) sec INR (<1.2) Sodium (137-145) mmol/L BUN (7-17) mg/dL Creatinine (0.52-1.04) mg/dL Iron 10 L (50-170) ug/dL % Saturation 2.19 L (12.00-45.00) Ferritin 3.0 L (10.0-291.0) ng/mL RBC Folate (280 - 791) ng/mL Crossmatch See Detail 11/01/19 11/01/19 11/02/19 Range/Units :20 23:57 06:11 RBC 3.04 L 3.33 L (3.80-5.40) m/uL Hgb 6.3 L* 7.4 L (11.4-16.0) gm/dL Hct 21.0 L 24.1 L (34.0-46.0) % MCV 68.9 L 72.6 L (80.0-100.0) fL MCH 20.7 L 22.3 L (25.0-35.0) pg MCHC 30.0 L 30.8 L (31.0-37.0) g/dL RDW 16.9 H 17.3 H (11.5-15.5) % Retic Count (0.10-1.80) % PT (9.0-12.0) sec INR (<1.2) Sodium (137-145) mmol/L BUN (7-17) mg/dL Creatinine (0.52-1.04) mg/dL Iron (50-170) ug/dL % Saturation (12.00-45.00) Ferritin (10.0-291.0) ng/mL RBC Folate 1,633 H (280 - 791) ng/mL Crossmatch 11/02/19 11/02/19 Range/Units 06:11 06:11 RBC (3.80-5.40) m/uL Hgb (11.4-16.0) gm/dL Hct (34.0-46.0) % MCV (80.0-100.0) fL MCH (25.0-35.0) pg MCHC (31.0-37.0) g/dL RDW (11.5-15.5) % Retic Count (0.10-1.80) % PT 12.9 H (9.0-12.0) sec INR 1.3 H (<1.2) Sodium 136 L (137-145) mmol/L BUN 25 H (7-17) mg/dL Creatinine 1.29 H (0.52-1.04) mg/dL Iron (50-170) ug/dL % Saturation (12.00-45.00) Ferritin (10.0-291.0) ng/mL RBC Folate (280 - 791) ng/mL Crossmatch Chest x-ray: report reviewed (No active cardiopulmonary disease on chest x-ray) Assessment and Plan (1) Iron deficiency anemia Narrative/Plan: 61-year-old female with multiple medical comorbidities including factor V Leiden disorder on anticoagulation therapy who presented to the hospital due to outpatient laboratory draw consistent with anemia. Patient had iron studies performed also showing an iron deficiency anemia with the patient reporting some dark stool recently. She did have a colonoscopy in 09/2018 significant for polypectomy. Stool testing was positive for blood. Hemoglobin currently 7.4 with MCV 72 and MCHC 22. Last EGD done in 2014 significant for gastritis in the hiatal hernia. A known etiology with differential including peptic ulcer disease, gastritis, esophagitis, AVM or other etiology. Current Visit: Yes Status: Acute Code(s): D50.9 - IRON DEFICIENCY ANEMIA, UNSPECIFIED SNOMED Code(s): 74892898 Plan: Supportive care Clear liquid diet Nothing by mouth after midnight Continue to monitor hemoglobin and hematocrit and transfuse as needed Appreciate recommendations from hematology service Iron replacement per hematology service Protonix increased to twice a day Nothing by mouth after midnight Plan for EGD tomorrow for further evaluation Thank you for allowing us to participate in the care of the patient we will continue to follow
[2019-11-03 09:00] LABS: Methylmalonic Acid 0.39 umol/L (<0.40)
[2019-11-03] MEDS: FUROSEMIDE 20 MG TAB PO SCH (09:16)
[2019-11-03] MEDS: PANTOPRAZOLE 40 MG/10 ML VIAL IVP SCH ×2 (09:17→20:18)
[2019-11-03] MEDS: SODIUM FERRIC GLUCONAT-SUCROSE 125 MG in SODIUM CHLORIDE 0.9% 100 ML IVPB SCH (09:19)
[2019-11-03] MEDS ORDERED: LACTATED RINGERS 1,000 ML IV ONE (12:05)
[2019-11-03] MEDS ORDERED: PROPOFOL 10 MG/ML 20 ML VIAL IV ONE (12:29)
[2019-11-03] MEDS ORDERED: LIDOCAINE 1% INJ 10MG/ML (20 ML MDV) ONE (12:29)
--- NOTE | 2019-11-03 13:10 | P.PCN ---
Date of Procedure: 11/03/19 Description of Procedure: BRIEF HISTORY: 69-year-old female with multiple medical comorbidities including mitral valve prolapse, hyperlipidemia, hypertension, prior DVT/PE, factor V Leiden disorder and GERD who presented to the hospital due to abnormal outpatient blood draw. The patient reports that she was feeling weak and saw her primary care physician with laboratory evaluation performed in the outpatient setting. Initially she had attributed the weakness to a recent bout of bronchitis. However, she was found to have a hemoglobin of 5.8 on laboratory evaluation. The patient is on chronic anticoagulation therapy due to her history of active 5 Leiden disorder. She reports that bowel movements have remained normal daily with no gross bleeding. She did have one dark bowel movement a few days ago. She denies any regular NSAID use, except for Mobic which she takes nightly. Previously she had EGD on 12/2014 prior to her sleeve gastrectomy which showed gastritis and a hiatal hernia. Colonoscopy was performed in 09/2018 and significant for polyps. Stool testing on presentation was positive. Laboratory evaluation significant for WBC 3.9, hemoglobin 7.4, platelet count 255,000, INR 1.3 from 2.8 on admission, reticulocyte count 1.8, and total iron 10. PROCEDURE PERFORMED: Esophagogastroduodenoscopy with biopsy and argon plasma coagulation therapy/ERBE. PREOPERATIVE DIAGNOSIS: Melena, anemia of acute blood loss ESTIMATED BLOOD LOSS: Minimal. IV sedation per anesthesia. PROCEDURE: After informed consent was obtained, the patient was brought into the endoscopy unit. IV sedation was administered by Anesthesia under continuous monitoring. Initially the Olympus GIF-190 video endoscope was inserted into the mouth. Esophagus intubated without any difficulty. It was gradually advanced into the stomach and duodenum and carefully examined. The bulb and the second part of the duodenum appeared normal, With biopsies taken. The scope at this time was withdrawn to the stomach, adequately insufflated with air, and upon careful examination, mucosa of the antrum, body, cardia and the fundus appeared normal, With post surgical anatomy consistent with patient's history of sleeve gastrectomy. There is also focal areas of linear erythema in the antrum which were noted to be oozing blood and suggestive of gastric antral vascular ectasia which was treated with argon plasma coagulation therapy with good hemostasis achieved. The scope was then withdrawn into the esophagus. The GE junction was located at 37 cm from the incisors. The esophagus appeared normal. There were no erosions or ulcerations seen and the patient tolerated the procedure well. IMPRESSION: 1. 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 2. Duodenal biopsies. RECOMMENDATIONS: The findings of this examination were discussed with the patient. Okay for full liquid diet today. Okay for medications. Would resume patient's Coumadin tomorrow. Patient should be maintained on Protonix 40 mg twice daily indefinitely. Continue iron supplementation per hematology.
[2019-11-03] MEDS: ATORVASTATIN 40 MG TAB PO SCH (20:17)
[2019-11-03] MEDS: LOSARTAN-HCTZ 50-12.5 MG 1 EACH TAB PO SCH (20:19)
[2019-11-04] MEDS: SODIUM CHLORIDE 0.9% 1,000 ML IV SCH (00:31)
--- NOTE | 2019-11-04 06:01 | PN ---
PROGRESS NOTE DATE OF SERVICE: 11/03/2019 This 69-year-old woman who was admitted symptomatic anemia with possible GI bleed underwent EGD by Dr. Matson. EGD showed gastric antral vascular ectasia, GAVE, with oozing of blood. The patient was treated with argon plasma coagulation treatment with good hemostasis and duodenal biopsies were taken. No chest pain. No palpitations. No fever. Currently the hemoglobin is improved to 7.8. No chest pain or palpitation. PHYSICAL EXAMINATION: On exam, alert and oriented. Pulse is 63. Blood pressure 139/69, respirations 16, temperature 97.5, pulse ox 97% on room air. HEENT: Conjunctivae normal. NECK: No JVD. CARDIOVASCULAR: S1, S2 muffled. RESPIRATORY: Breath sounds diminished at the bases. No rhonchi, no crackles. ABDOMEN: Soft, obese, nontender. No mass palpable. LEGS: No edema, no swelling. NERVOUS SYSTEM: No focal deficits. LABS: Labs are at this time as mentioned earlier. Hemoglobin 7.8. Other labs are noted. Sodium 132. ASSESSMENT: 1. Anemia, microcytic possibly acute gastrointestinal bleed secondary to GAVE,gastric antral vascular ectasia, status post EGD and argon plasma coagulation therapy. 2. Status post multiple transfusions. 3. Anemia possibly blood-loss anemia. 4. Coumadin monitoring. 5. Hyponatremia. 6. Increased creatinine with chronic kidney disease stage 3 possibly. 7. Stool OB positive. 8. History of factor 5 Leiden deficiency. 9. History of deep vein thrombosis. 10.History of gastroesophageal reflux disease. 11.Hypertension. 12.Hyperlipidemia. 13.History of mitral valve prolapse with mitral regurgitation. 14.History of degenerative joint disease. 15.History of pulmonary embolism. 16.Hypothyroidism. 17.History of hiatal hernia. 18.History of varicose veins. 19.History of bariatric surgery. 20.History of bowel resection. 21.History of cholecystectomy. 22.History of gastric sleeve surgery. 23.History of cataracts. 24.Remote history of nicotine dependence. 25.Obesity with body mass index of 44.7. RECOMMENDATIONS AND DISCUSSION: Recommend to continue current medications, continue with monitoring and symptomatic treatment. Continue to monitor hemoglobin. Advance diet per Gastroenterology. Guarded prognosis because of multiple complex medical issues. Further recommendations to follow. MMODL / IJN: [id number] /
[2019-11-04] MEDS: LEVOTHYROXINE 137 MCG TAB PO SCH (06:12)
[2019-11-04 08:05] VITALS: PULSE 67; RESP 14; TEMP 98.2
[2019-11-04 08:28] LABS: Anisocytosis Moderate; Basophils % (A) 1 %; Eosinophils # (A) 0.1 k/uL (0-0.7); Eosinophils % (A) 2 %; HCT 27.3 % (34.0-46.0); HGB 8.2 gm/dL (11.4-16.0); Hypochromasia Marked; Lymphocytes # (A) 1.3 k/uL (1.0-4.8); Lymphocytes % (A) 24 %; MCH 21.7 pg (25.0-35.0); MCV 72.6 fL (80.0-100.0); Mean Platelet Volume 7.7; Microcytosis Marked; Monocytes # (A) 0.3 k/uL (0-1.0); Monocytes % (A) 6 %; Neutrophils # (A) 3.7 k/uL (1.3-7.7); Neutrophils % (A) 65 %; Platelet Count 262 k/uL (150-450); Poikilocytosis Moderate; RBC 3.77 m/uL (3.80-5.40); RDW 20.3 % (11.5-15.5); WBC 5.7 k/uL (3.8-10.6)
[2019-11-04 08:29] LABS: Prothrombin Time 10.5 sec (9.0-12.0)
[2019-11-04 08:35] LABS: Calcium 9.3 mg/dL (8.4-10.2); Potassium 3.9 mmol/L (3.5-5.1)
[2019-11-04 09:41] VITALS: BP 122/64
[2019-11-04] MEDS: SODIUM FERRIC GLUCONAT-SUCROSE 125 MG in SODIUM CHLORIDE 0.9% 100 ML IVPB SCH (09:41)
[2019-11-04] MEDS: PANTOPRAZOLE 40 MG/10 ML VIAL IVP SCH (09:42)
[2019-11-04] MEDS: FUROSEMIDE 20 MG TAB PO SCH (09:42)
--- NOTE | 2019-11-04 12:54 | P.PN ---
Subjective Progress Note Date: 11/04/19 Principal diagnosis: severe anemia in follow-up today patient states feeling rather well, status post endoscopies with a gastric ulcer treated with argon plasma coagulation. Patient denies any signs or symptoms of bleeding, nausea. Hemoglobin is stable at 8.2 today. Objective - Vital Signs Vital signs: Vital Signs Temp 98.2 F 11/04/19 08:04 Pulse 67 11/04/19 08:04 Resp 14 11/04/19 08:04 BP 122/64 11/04/19 09:38 Pulse Ox 97 11/04/19 08:04 Intake & Output 11/03/19 11/04/19 11/04/19 18:59 06:59 18:59 Intake Total 1200 Balance 1200 Intake: IV 200 Intake, IV Titration 1000 Amount Lactated Ringers 1,000 ml 1000 @ 0 mls/hr IV .[employer] Rx#:[id number] Other: Voiding Method Toilet # Voids 1 2 # Bowel Movements 0 - Constitutional General appearance: Present: average body habitus, cooperative, no acute distress - EENT Eyes: Present: anicteric sclerae, EOMI ENT: Present: hearing grossly normal - Respiratory Details: respirations even and unlabored - Cardiovascular Details: skin warm and dry, radial pulses 2+ - Integumentary Integumentary: Present: pale - Neurologic Neurologic: Present: CNII-XII intact - Musculoskeletal Musculoskeletal: Present: strength equal bilaterally - Psychiatric Psychiatric: Present: A&O x's 3, appropriate affect, intact judgment & insight - Labs CBC & Chem 7: 11/04/19 07:21 11/04/19 07:21 Labs: Abnormal Lab Results - Last 24 Hours (Table) 11/04/19 11/04/19 Range/Units 07:21 07:21 RBC 3.77 L (3.80-5.40) m/uL Hgb 8.2 L (11.4-16.0) gm/dL Hct 27.3 L (34.0-46.0) % MCV 72.6 L (80.0-100.0) fL MCH 21.7 L (25.0-35.0) pg MCHC 30.0 L (31.0-37.0) g/dL RDW 20.3 H (11.5-15.5) % Sodium 135 L (137-145) mmol/L Creatinine 1.33 H (0.52-1.04) mg/dL - Imaging and Cardiology procedure notes reviewed Assessment and Plan (1) Iron deficiency anemia Narrative/Plan: Patient has had endoscopy, identification of gastric ulcer, treated. Patient has been provided with iron supplementation. Evaluation of iron studies 4 weeks after administration of parenteral iron per guidelines. Patient will follow-up in the office in 1 month. She can follow-up when necessary if she is having symptoms of progressive anemia. She verbalized understanding Current Visit: Yes Status: Acute Priority: High Code(s): D50.9 - IRON DEFICIENCY ANEMIA, UNSPECIFIED SNOMED Code(s): 74591523 (2) Factor V Leiden Narrative/Plan: Patient has been on Coumadin chronically for the same. Bleeding source has been identified and treated. Agree with Gastroenterology the patient is okay to resume Coumadin. She will have close CBC monitoring. Patient encouraged to contact office if she is feeling symptomatic. She verbalized understanding Current Visit: Yes Status: Chronic Priority: Medium Code(s): D68.51 - ACTIVATED PROTEIN C RESISTANCE SNOMED Code(s): 058683974
--- NOTE | 2019-11-07 07:55 | P.DS ---
Providers Date of admission: 11/01/19 14:10 Expected date of discharge: 11/04/19 Attending physician: Hillary Álvarez Consults: 11/01/19 14:28 Consult Physician Routine Consulting Provider: Mick Matson Consult Reason/Comments: GI bleed Do you want consulting provider notified?: Yes 11/01/19 17:03 Consult Physician Routine Consulting Provider: Jack Mendez Consult Reason/Comments: factor v leiden Do you want consulting provider notified?: Yes Primary care physician: Freeman Moran [facility] Course: Final diagnosis Anemia, microcytic possibly acute gastrointestinal bleed secondary to GAVE, gastric antral vascular ectasia, status post EGD and argon plasma coagulation therapy Status post multiple transfusions Anemia possibly blood loss anemia Coumadin monitoring Hyponatremia Increased creatinine with chronic kidney disease stage III possibly Stool occult blood positive History of factor V BD deficiency History of deep vein thrombosis History of gastroesophageal reflux disease Hypertension Hyperlipidemia History of mitral valve prolapse with mitral regurgitation History of degenerative joint disease History of pulmonary embolism Hypothyroidism History of hiatal hernia History of varicose veins history of bariatric surgery History of bowel resection History of cholecystectomy History of gastric sleeve surgery History of cataracts Remote history of nicotine dependence Obesity with a body mass index of 44.7 Discharge disposition Patient is being discharged in a stable condition with guarded prognosis to home and will follow-up with Dr. Moran in the outpatient setting upon discharge. She will also follow-up with GI in 1-2 weeks for results. Patient will continue on Protonix twice daily along with Carafate before meals at bedtime. Total time taken is 35 minutes. History of present illness This is a 69-year-old female who was recently admitted with symptomatic anemia with possible GI bleed and was being closely monitored. Patient underwent EGD with GI showing gastric antral vascular ectasia with oozing of blood and was treated with argon plasma coagulation treatment and multiple duodenal biopsies were taken. Patient will be following up with GI Dr. Matson in the outpatient setting in 1-2 weeks for results. Patient will continue on Protonix twice daily along with Carafate before meals at bedtime until follow-up. Patient will need repeat labs in a few days to monitor PT/INR for Coumadin therapy as she is resuming Coumadin therapy upon discharge. Hemoglobin today is 8.2. Currently patient's condition is stable and is ready for discharge today. No reports of chest pain, palpitations, or shortness of breath. Patient is afebrile. No reports of nausea or vomiting and patient is tolerating diet. On exam vital signs are stable. Temp is 98.2F, pulse is 67, respirations are 14, blood pressures 126/67, oxygen saturation is 97% on room air. Cardio S1, S2 are muffled. Respiratory system shows diminished breath sounds at the bases with no wheezes or rhonchi noted. Abdomen is soft, obese, and nontender. Nervous system shows no focal deficits. Please refer to medication reconciliation sheet for a list of medications. Patient Condition at Discharge: Fair Plan - Discharge Summary Discharge Rx Participant: Yes New Discharge Prescriptions: New Sucralfate [Carafate] 1 gm PO ACHS #120 ml Pantoprazole Sodium [Protonix] 40 mg PO BID 30 Days #60 tablet. Sucralfate [Carafate] 1 gm PO ACHS #60 tablet Continue Meloxicam 7.5 mg PO HS Losartan/Hydrochlorothiazide [Losartan-Hctz 100-25 mg Tab] 1 tab PO HS Warfarin [Coumadin] 3 mg PO TUFR@2099 Warfarin Sodium [Coumadin] 6 mg PO SUMOWETHSA@2099 Atorvastatin [Lipitor] 40 mg PO HS Levothyroxine Sodium [Synthroid] 137 mcg PO DAILY Furosemide [Lasix] 20 mg PO DAILY rOPINIRole HCL 3 - 9 mg PO DIRECTED Omeprazole [PriLOSEC] 40 mg PO HS Discharge Medication List Losartan/Hydrochlorothiazide [Losartan-Hctz 100-25 mg Tab] 1 tab PO HS 12/22/14 [History] Meloxicam 7.5 mg PO HS 12/22/14 [History] Atorvastatin [Lipitor] 40 mg PO HS 06/21/15 [History] Warfarin Sodium [Coumadin] 6 mg PO SUMOWETHSA@209906/21/15 [History] Warfarin [Coumadin] 3 mg PO TUFR@209906/21/15 [History] Furosemide [Lasix] 20 mg PO DAILY 11/01/19 [History] Levothyroxine Sodium [Synthroid] 137 mcg PO DAILY 11/01/19 [History] Omeprazole [PriLOSEC] 40 mg PO HS 11/01/19 [History] rOPINIRole HCL 3 - 9 mg PO DIRECTED 11/01/19 [History] Pantoprazole Sodium [Protonix] 40 mg PO BID 30 Days #60 tablet. 11/04/19 [Rx] Sucralfate [Carafate] 1 gm PO ACHS #120 ml 11/04/19 [Rx] Sucralfate [Carafate] 1 gm PO ACHS #60 tablet 11/04/19 [Rx] Follow up Appointment(s)/Referral(s): Jack Mendez MD [STAFF PHYSICIAN] - 4 Weeks (office closed at time of discharge please call to make appointment) Freeman Moran DO [Primary Care Provider] - 11/07/19 9:20 am Mick Matson MD [STAFF PHYSICIAN] - 1 Week (office not answering at time of discharge) Ambulatory/Diagnostic Orders: Basic Metabolic Panel [LAB.AMB] Time Frame: 2 Days, Location: None Selected Complete Blood Count w/diff [LAB.AMB] Time Frame: 2 Days, Location: None Selected Prothrombin Time INR [LAB.AMB] Time Frame: 2 Days, Location: None Selected Activity/Diet/Wound Care/Special Instructions: Activity Limited until follow-up Follow-up with primary care provider upon discharge Follow-up with Dr. Mendez in the outpatient setting Follow-up with GI in the outpatient setting in 1-2 weeks Continue current diet and advance slowly as tolerated Repeat labs in 2-3 days Discharge Disposition: HOME SELF-CARE
== END 2019-11-04 13:50 | disposition home or self-care (01) | DRG 378 ==
LOC: EC 12:06 → 3SCARD 14:10 → 4SSUR 11-03 21:34
PROVIDERS: ADMIT Hospitalist; ATTEND Hospitalist
PROC: 30233N1 Transfusion of Nonautologous Red Blood Cells into Peripheral Vein, Percutaneous Approach (ICD-10-PCS; 2019-11-01)
PROC: 0DB98ZX Excision of Duodenum, Via Natural or Artificial Opening Endoscopic, Diagnostic (ICD-10-PCS; principal; 2019-11-03 10:40)
PROC: 0W3P8ZZ Control Bleeding in Gastrointestinal Tract, Via Natural or Artificial Opening Endoscopic (ICD-10-PCS; 2019-11-03 10:40)
DX: K31.811 Angiodysplasia of stomach and duodenum with bleeding (principal); D68.51 Activated protein C resistance; D68.59 Other primary thrombophilia; E87.1 Hypo-osmolality and hyponatremia; D62 Acute posthemorrhagic anemia; Z68.41 Body mass index [BMI] 40.0-44.9, adult; N18.3 Chronic kidney disease, stage 3 (moderate); I34.1 Nonrheumatic mitral (valve) prolapse; I12.9 Hypertensive chronic kidney disease with stage 1 through stage 4 chronic kidney disease, or unspecified chronic kidney disease; E78.5 Hyperlipidemia, unspecified; K21.9 Gastro-esophageal reflux disease without esophagitis; M19.90 Unspecified osteoarthritis, unspecified site; G43.909 Migraine, unspecified, not intractable, without status migrainosus; H91.90 Unspecified hearing loss, unspecified ear; H54.7 Unspecified visual loss; E03.9 Hypothyroidism, unspecified; E66.9 Obesity, unspecified; I83.90 Asymptomatic varicose veins of unspecified lower extremity; Z79.899 Other long term (current) drug therapy; Z79.890 Hormone replacement therapy; Z79.01 Long term (current) use of anticoagulants; Z86.718 Personal history of other venous thrombosis and embolism; Z98.84 Bariatric surgery status; Z86.711 Personal history of pulmonary embolism; Z86.010 Personal history of colon polyps; Z87.19 Personal history of other diseases of the digestive system; Z90.49 Acquired absence of other specified parts of digestive tract; Z98.890 Other specified postprocedural states; Z87.09 Personal history of other diseases of the respiratory system; Z87.11 Personal history of peptic ulcer disease; Z98.41 Cataract extraction status, right eye; Z95.828 Presence of other vascular implants and grafts; Z87.891 Personal history of nicotine dependence; Z88.5 Allergy status to narcotic agent; Z88.8 Allergy status to other drugs, medicaments and biological substances; Z80.9 Family history of malignant neoplasm, unspecified
CPT/HCPCS: 36415; 36430; 43239; 43270; 71045; 80048; 81003; 82272; 82607; 82728; 82747; 83540; 83550; 83605; 83735; 83921; 85025; 85045; 85610; 85730; 86850; 86900; 86901; 86920; 88305; 93005; 96361; 96365; 96375; 96376; 99285

== ENCOUNTER 2020-04-06 16:46 | Inpatient (IN) | payer MEDICARE, OTHER ==
[2020-04-06] MEDS ORDERED: PANTOPRAZOLE 40 MG/10 ML VIAL IVP ONE (16:54)
--- NOTE | 2020-04-06 17:06 | ED ---
General Adult HPI - General Chief complaint: Recheck/Abnormal Lab/Rx Stated complaint: Low hemoglobin Time Seen by Provider: 04/06/20 16:52 Source: patient Mode of arrival: ambulatory Limitations: no limitations - History of Present Illness Initial comments: Dictation was produced using [employer] dictation software. please excuse any grammatical, word or spelling errors. This patient was cared for during a federal and state declared state of emerg ency secondary to Covid 19 Chief Complaint: 70-year-old female presents with low hemoglobin History of Present Illness: 70-year-old female she has history of peptic ulcer disease. Patient reports that she was seen at her primary care physician's office recently. She presented there for exertional dyspnea. Patient had labs drawn and found have a hemoglobin 4.7. She was told to come to the emergency Department immediately. Back in October patient had similar issue where she was diagnosed with peptic ulcer disease required intervention by GI doctor. Patient has no pain complaints. She denies any symptoms at rest. The ROS documented in this emergency department record has been reviewed and confirmed by me. Those systems with pertinent positive or negative responses have been documented in the HPI. All other systems are other negative and/or noncontributory. PHYSICAL EXAM: General Impression: Alert and oriented x3, not in acute distress HEENT: Normocephalic atraumatic, extra-ocular movements intact, pupils equal and reactive to light bilaterally, mucous membranes moist. Cardiovascular: Heart regular rate and rhythm Chest: Able to complete full sentences, no retractions, no tachypnea Abdomen: abdomen soft, non-tender, non-distended, no organomegaly Musculoskeletal: Pulses present and equal in all extremities, no peripheral edema Motor: no focal deficits noted Neurological: CN II-XII grossly intact, no focal motor or sensory deficits noted Skin: Intact with no visualized rashes Psych: Normal affect and mood ED course: 70-year-old female presents with abnormal outpatient lab. As upon arrival are within acceptable limits. I do not have access to patient's most recent labs. She reports that was 4.7. We will order a set here. patient treated with Protonix. Laboratory evaluation obtained. Hemoglobin is 4.6. Differential suggest microcytosis. Coag panel shows INR of 2.1. Patient is on Coumadin. Metabolic panel was within acceptable limits. Patient given a transfusion 1 unit of blood. Patient reevaluated at bedside 5 in stable medical condition. She is not showing any signs of active hemorrhage at this time. Discussed patient case with Dr. Richmond was went except patient's care. GI on consult. - Related Data Home Medications Medication Instructions Recorded Confirmed Losartan/Hydrochlorothiazide 1 tab PO HS 12/22/14 04/06/20 [Losartan-Hctz 100-25 mg Tab] Atorvastatin [Lipitor] 40 mg PO HS 06/21/15 04/06/20 Warfarin Sodium [Coumadin] 6 mg PO SUMOWETHSA@209906/21/15 04/06/20 Warfarin [Coumadin] 3 mg PO TUFR@2100 06/21/15 04/06/20 Furosemide [Lasix] 20 mg PO DAILY@0611/01/19 04/06/20 Levothyroxine Sodium [Synthroid] 137 mcg PO DAILY@0200 11/01/19 04/06/20 Omeprazole [PriLOSEC] 40 mg PO HS 11/01/19 04/06/20 rOPINIRole HCL 3 mg PO TID PRN 11/01/19 04/06/20 Guaifen/Phenyleph/Acetaminophn 2 tab PO ONCE PRN 04/06/20 04/06/20 [Tylenol Sinus Severe Caplet] [place] Xl 2 tab PO DAILY 04/06/20 04/06/20 Allergies Allergy/AdvReac Type Severity Reaction Status Date / Time codeine Allergy Swelling,mi Verified 04/06/20 17:24 graine morphine Allergy Swelling,mi Verified 04/06/20 17:24 graine nifedipine [From Procardia] Allergy Swelling,mi Verified 04/06/20 17:24 graine Review of Systems ROS Statement: Those systems with pertinent positive or pertinent negative responses have been documented in the HPI. ROS Other: All systems not noted in ROS Statement are negative. Past Medical History Past Medical History: Blood Disorder, Deep Vein Thrombosis (DVT), GERD/Reflux, Hyperlipidemia, Hypertension, Mitral Valve Prolapse (MVP), Osteoarthritis (OA), Pulmonary Embolus (PE), Thyroid Disorder Additional Past Medical History / Comment(s): migraines, MVP with regurgitation, hx ulcer, hiatal hernia, Factor V Leiden, varicose veinstakes coumadin at home History of Any Multi-Drug Resistant Organisms: None Reported Past Surgical History: Bariatric Surgery, Bowel Resection, Cholecystectomy, Hernia Repair, Orthopedic Surgery Additional Past Surgical History / Comment(s): GASTRIC SLEEVE,ORIF RT ANKLE,"bowel release x 2",rt cataract, vena cava filter Past Anesthesia/Blood Transfusion Reactions: Postoperative Nausea & Vomiting (PONV) Additional Past Anesthesia/Blood Transfusion Reaction / Comment(s): post op migraine for 5 days Past Psychological History: No Psychological Hx Reported Smoking Status: Never smoker Past Alcohol Use History: None Reported Past Drug Use History: None Reported - Past Family History Father Family Medical History: Cancer Mother Family Medical History: Cancer General Exam Limitations: no limitations Course Vital Signs 04/06/20 04/06/20 16:48 18:04 Temperature 98.0 F Pulse Rate 74 Respiratory 20 18 Rate Blood Pressure 138/79 O2 Sat by Pulse 100 Oximetry Medical Decision Making - Lab Data Result diagrams: 04/06/20 17:40 04/06/20 17:50 Lab Results 04/06/20 04/06/20 04/06/20 Range/Units 17:40 17:50 17:50 WBC 5.0 (3.8-10.6) k/uL RBC 2.49 L (3.80-5.40) m/uL Hgb 4.6 L* (11.4-16.0) gm/dL Hct 16.4 L* (34.0-46.0) % MCV 65.8 L (80.0-100.0) fL MCH 18.4 L (25.0-35.0) pg MCHC 27.9 L (31.0-37.0) g/dL RDW 16.5 H (11.5-15.5) % Plt Count 282 (150-450) k/uL Neutrophils % 59 % Lymphocytes % 28 % Monocytes % 6 % Eosinophils % 3 % Basophils % 1 % Neutrophils # 2.9 (1.3-7.7) k/uL Lymphocytes # 1.4 (1.0-4.8) k/uL Monocytes # 0.3 (0-1.0) k/uL Eosinophils # 0.2 (0-0.7) k/uL Basophils # 0.1 (0-0.2) k/uL Hypochromasia Marked Poikilocytosis Moderate Anisocytosis Slight Microcytosis Marked PT (9.0-12.0) sec INR (<1.2) APTT (22.0-30.0) sec Sodium 132 L (137-145) mmol/L Potassium 3.9 (3.5-5.1) mmol/L Chloride 101 (98-107) mmol/L Carbon Dioxide 24 (22-30) mmol/L Anion Gap 7 mmol/L BUN 20 H (7-17) mg/dL Creatinine 1.28 H (0.52-1.04) mg/dL Est GFR (CKD-EPI)AfAm 50 (>60 ml/min/1.73 sqM) Est GFR (CKD-EPI)NonAf 43 (>60 ml/min/1.73 sqM) Glucose 90 (74-99) mg/dL Plasma Lactic Acid Joshua (0.7-2.0) mmol/L Calcium 8.9 (8.4-10.2) mg/dL Blood Type A Positive Blood Type Recheck A Pos Bld Type Recheck Status No Antibody Screen NEGATIVE Crossmatch See Detail Spec Expiration Date 04/09/2020 - 234904/06/20 04/06/20 Range/Units 18:01 18:01 WBC (3.8-10.6) k/uL RBC (3.80-5.40) m/uL Hgb (11.4-16.0) gm/dL Hct (34.0-46.0) % MCV (80.0-100.0) fL MCH (25.0-35.0) pg MCHC (31.0-37.0) g/dL RDW (11.5-15.5) % Plt Count (150-450) k/uL Neutrophils % % Lymphocytes % % Monocytes % % Eosinophils % % Basophils % % Neutrophils # (1.3-7.7) k/uL Lymphocytes # (1.0-4.8) k/uL Monocytes # (0-1.0) k/uL Eosinophils # (0-0.7) k/uL Basophils # (0-0.2) k/uL Hypochromasia Poikilocytosis Anisocytosis Microcytosis PT 20.6 H (9.0-12.0) sec INR 2.1 H (<1.2) APTT 26.6 (22.0-30.0) sec Sodium (137-145) mmol/L Potassium (3.5-5.1) mmol/L Chloride (98-107) mmol/L Carbon Dioxide (22-30) mmol/L Anion Gap mmol/L BUN (7-17) mg/dL Creatinine (0.52-1.04) mg/dL Est GFR (CKD-EPI)AfAm (>60 ml/min/1.73 sqM) Est GFR (CKD-EPI)NonAf (>60 ml/min/1.73 sqM) Glucose (74-99) mg/dL Plasma Lactic Acid Joshua 0.7 (0.7-2.0) mmol/L Calcium (8.4-10.2) mg/dL Blood Type Blood Type Recheck Bld Type Recheck Status Antibody Screen Crossmatch Spec Expiration Date Disposition Clinical Impression: Anemia Disposition: ADMITTED IP TO THIS [facility] Condition: Fair Referrals: Freeman Moran DO [Primary Care Provider] - 1-2 days Decision Time: 19:09
[2020-04-06 18:34] LABS: Calcium 8.9 mg/dL (8.4-10.2); Potassium 3.9 mmol/L (3.5-5.1)
[2020-04-06 18:40] LABS: Anisocytosis Slight; Basophils # (A) 0.1 k/uL (0-0.2); Basophils % (A) 1 %; Eosinophils # (A) 0.2 k/uL (0-0.7); Eosinophils % (A) 3 %; Hypochromasia Marked; Lymphocytes # (A) 1.4 k/uL (1.0-4.8); Lymphocytes % (A) 28 %; MCH 18.4 pg (25.0-35.0); MCHC 27.9 g/dL (31.0-37.0); MCV 65.8 fL (80.0-100.0); Mean Platelet Volume 8.1; Microcytosis Marked; Monocytes # (A) 0.3 k/uL (0-1.0); Monocytes % (A) 6 %; Neutrophils # (A) 2.9 k/uL (1.3-7.7); Neutrophils % (A) 59 %; Platelet Count 282 k/uL (150-450); Poikilocytosis Moderate; RBC 2.49 m/uL (3.80-5.40); RDW 16.5 % (11.5-15.5)
[2020-04-06 18:44] LABS: HCT 16.4 % (34.0-46.0); HGB 4.6 gm/dL (11.4-16.0)
[2020-04-06 18:55] LABS: INR 2.1 (<1.2); Partial Thromboplastin Time 26.6 sec (22.0-30.0); Prothrombin Time 20.6 sec (9.0-12.0)
[2020-04-06] MEDS ORDERED: NALOXONE 0.4 MG/ML 1 ML VIAL IV PRN (19:09)
[2020-04-06] MEDS ORDERED: PHYTONADIONE 10 MG in SODIUM CHLORIDE 0.9% 50 ML IVPB STA (19:11)
[2020-04-06] MEDS ORDERED: GUAIFEN PO PRN (21:32)
[2020-04-06] MEDS ORDERED: PHENYLEPH PO PRN (21:32)
[2020-04-06] MEDS ORDERED: ACETAMINOPHN PO PRN (21:32)
[2020-04-06] MEDS: ATORVASTATIN 40 MG TAB PO SCH (21:49)
[2020-04-07 00:03] VITALS: RESP 16
[2020-04-07 00:04] LABS: Anisocytosis Moderate; Basophils # (A) 0.1 k/uL (0-0.2); Basophils % (A) 1 %; Eosinophils # (A) 0.2 k/uL (0-0.7); Eosinophils % (A) 4 %; HCT 20.1 % (34.0-46.0); Hypochromasia Marked; Lymphocytes # (A) 1.3 k/uL (1.0-4.8); Lymphocytes % (A) 27 %; MCH 20.9 pg (25.0-35.0); MCHC 29.8 g/dL (31.0-37.0); MCV 70.2 fL (80.0-100.0); Mean Platelet Volume 8.3; Microcytosis Marked; Monocytes # (A) 0.3 k/uL (0-1.0); Monocytes % (A) 6 %; Neutrophils # (A) 2.8 k/uL (1.3-7.7); Neutrophils % (A) 59 %; Platelet Count 257 k/uL (150-450); Poikilocytosis Marked; RBC 2.87 m/uL (3.80-5.40); RDW 21.2 % (11.5-15.5); WBC 4.7 k/uL (3.8-10.6)
[2020-04-07] MEDS: LEVOTHYROXINE 137 MCG TAB PO SCH (02:50)
[2020-04-07] MEDS: FUROSEMIDE 20 MG TAB PO SCH (05:56)
[2020-04-07 08:19] LABS: Anisocytosis Moderate; HCT 23.4 % (34.0-46.0); Hypochromasia Marked; MCH 21.7 pg (25.0-35.0); MCHC 29.7 g/dL (31.0-37.0); MCV 73.1 fL (80.0-100.0); Mean Platelet Volume 7.1; Microcytosis Marked; Platelet Count 237 k/uL (150-450); Poikilocytosis Marked; RDW 20.7 % (11.5-15.5); WBC 4.3 k/uL (3.8-10.6)
[2020-04-07] MEDS: PANTOPRAZOLE 40 MG/10 ML VIAL IVP SCH ×2 (10:07→20:12)
[2020-04-07 10:08] LABS: Basophils # (M) 0.04 k/uL (0-0.2); Lymphocytes # (M) 0.82 k/uL (1.0-4.8); Monocytes # (M) 0.17 k/uL (0-1.0); Neutrophils # (M) 2.97 k/uL (1.3-7.7); Neutrophils % (M) 69 %; Nucleated Red Blood Cells 0 /100 WBC (0-0); Total Cells Counted 100
[2020-04-07 14:45] LABS: Anisocytosis Moderate; Basophils # (A) 0.1 k/uL (0-0.2); Basophils % (A) 1 %; Eosinophils # (A) 0.2 k/uL (0-0.7); Eosinophils % (A) 4 %; HCT 23.7 % (34.0-46.0); HGB 7.3 gm/dL (11.4-16.0); Hypochromasia Marked; Lymphocytes # (A) 0.8 k/uL (1.0-4.8); Lymphocytes % (A) 21 %; MCH 22.1 pg (25.0-35.0); MCHC 30.9 g/dL (31.0-37.0); MCV 71.7 fL (80.0-100.0); Mean Platelet Volume 7.1; Microcytosis Marked; Monocytes # (A) 0.3 k/uL (0-1.0); Monocytes % (A) 7 %; Neutrophils # (A) 2.5 k/uL (1.3-7.7); Neutrophils % (A) 65 %; Platelet Count 260 k/uL (150-450); Poikilocytosis Marked; RBC 3.31 m/uL (3.80-5.40); RDW 20.8 % (11.5-15.5); WBC 3.9 k/uL (3.8-10.6)
--- NOTE | 2020-04-07 16:53 | P.HPIM ---
History of Present Illness H&P Date: 04/06/20 Chief Complaint: Low hemoglobin Patient is a 70-year-old female with a known history of DVT, factor V Leiden on long-term anticoagulation with Coumadin, recent history of GI bleed and peptic ulcers in October 2019 status post EGD, osteoarthritis, hypothyroidism and other medical problems presents to ER with complaints of low hemoglobin level. Patient was seen by her primary care physician. Patient has been having exertional dyspnea recently along with shortness of breath and intermittent chest pains. Lab tests were done which showed hemoglobin level of 4.7. Patient was told to go to ER. Otherwise patient denied any complaints of nausea vomiting. No hematemesis or no melena. Denied any dysuria or hematuria. Patient had similar symptoms when she was diagnosed with peptic ulcer disease back in October 2019. Denied any symptoms at rest. No fever no chills. No cough or sputum production. No headache or dizziness or lightheadedness. Patient says that she was also having iron deficiency and did receive blood transfusions back in October. Hemoglobin was 4.6 on admission Creatinine 1.28 Review of Systems Constitutional: Patient denies any fever or chills . Patient does have generalized weakness and tiredness. Abdomen: Patient denied nausea vomiting and diarrhea and abdominal pain. Cardiovascular: Patient does have intermittent chest pains with exertion and shortness of breath and leg swelling Respiratory: patient denied any cough is from production. Positive shortness of breath Neurologic: Patient denied any numbness or tingling headache. Musculoskeletal: Patient denies any complaints of joint swelling or deformity. Skin: Negative Psychiatric: Negative Endocrine: No heat or cold intolerance. No recent weight gain. Genitourinary: No dysuria or hematuria. All other 14 point ROS negative except the above Past Medical History Past Medical History: Blood Disorder, Deep Vein Thrombosis (DVT), GERD/Reflux, Hyperlipidemia, Hypertension, Mitral Valve Prolapse (MVP), Osteoarthritis (OA), Pulmonary Embolus (PE), Thyroid Disorder Additional Past Medical History / Comment(s): migraines, MVP with regurgitation, hx ulcer, hiatal hernia, Factor V Leiden, varicose veinstakes coumadin at home History of Any Multi-Drug Resistant Organisms: None Reported Past Surgical History: Bariatric Surgery, Bowel Resection, Cholecystectomy, Hernia Repair, Orthopedic Surgery Additional Past Surgical History / Comment(s): GASTRIC SLEEVE,ORIF RT ANKLE,"b owel release x 2",rt cataract, vena cava filter Past Anesthesia/Blood Transfusion Reactions: Postoperative Nausea & Vomiting (PONV) Additional Past Anesthesia/Blood Transfusion Reaction / Comment(s): post op migraine for 5 days Past Psychological History: No Psychological Hx Reported Smoking Status: Former smoker, Never smoker Past Alcohol Use History: None Reported Past Drug Use History: None Reported - Past Family History Father Family Medical History: Cancer Mother Family Medical History: Cancer Medications and Allergies Home Medications Medication Instructions Recorded Confirmed Type Losartan/Hydrochlorothiazide 1 tab PO HS 12/22/14 04/06/20 History [Losartan-Hctz 100-25 mg Tab] Atorvastatin [Lipitor] 40 mg PO HS 06/21/15 04/06/20 History Warfarin Sodium [Coumadin] 6 mg PO SUMOWETHSA@209906/21/15 04/06/20 History Warfarin [Coumadin] 3 mg PO TUFR@2100 06/21/15 04/06/20 History Furosemide [Lasix] 20 mg PO DAILY@0600 11/01/19 04/06/20 History Levothyroxine Sodium [Synthroid] 137 mcg PO DAILY@0200 11/01/19 04/06/20 History Omeprazole [PriLOSEC] 40 mg PO HS 11/01/19 04/06/20 History rOPINIRole HCL 3 mg PO TID PRN 11/01/19 04/06/20 History Guaifen/Phenyleph/Acetaminophn 2 tab PO ONCE PRN 04/06/20 04/06/20 History [Tylenol Sinus Severe Caplet] [place] Xl 2 tab PO DAILY 04/06/20 04/06/20 History Allergies Allergy/AdvReac Type Severity Reaction Status Date / Time codeine Allergy Swelling,mi Verified 04/06/20 17:24 graine morphine Allergy Swelling,mi Verified 04/06/20 17:24 graine nifedipine [From Procardia] Allergy Swelling,mi Verified 04/06/20 17:24 graine Physical Exam Vitals: Vital Signs Temp Pulse Pulse Resp BP BP Pulse Ox 04/06/20 20:20 97.9 F 76 18 123/59 98 04/06/20 19:56 98.3 F 76 18 109/79 100 04/06/20 19:50 98.2 F 72 18 115/52 07/17/20 19:40 98.2 F 74 18 118/57 99 04/06/20 19:20 98 04/06/20 18:04 18 04/06/20 16:48 98.0 F 74 20 138/79 100 Intake and Output 04/06/20 04/06/20 04/06/20 06:59 14:59 22:59 Intake Total 0 Balance 0 Intake: Blood Product 0 Rc As-1 Unit 0 [id number] Other: Weight 107.048 kg PHYSICAL EXAMINATION: Patient is lying in the bed comfortably, no acute distress, awake alert and oriented.. HEENT: Normocephalic. Neck is supple. Pupils reactive. Nostrils clear. Oral cavity is moist. Ears reveal no drainage. Neck reveals no JVD, carotid bruits, or thyromegaly. CHEST EXAMINATION: Trachea is central. Symmetrical expansion. Lung harman clear to auscultation and percussion. CARDIAC: Normal S1, S2 with no gallops. No murmurs ABDOMEN: Soft. Bowel sounds normal. No organomegaly. No abdominal bruits. Extremities: reveal no edema. No clubbing or cyanosis Neurologically awake, alert, oriented x3 with well-coordinated movements. No focal deficits noted Skin: No rash or skin lesions. Psychiatric: Coperative. Nonsuicidal Musculoskeletal: No joint swelling or deformity. Normal range of motion. Results CBC & Chem 7: 04/07/20 14:09 04/06/20 17:50 Labs: Abnormal Lab Results - Last 24 Hours (Table) 04/06/20 04/06/20 04/06/20 Range/Units 17:40 17:50 17:50 RBC 2.49 L (3.80-5.40) m/uL Hgb 4.6 L* (11.4-16.0) gm/dL Hct 16.4 L* (34.0-46.0) % MCV 65.8 L (80.0-100.0) fL MCH 18.4 L (25.0-35.0) pg MCHC 27.9 L (31.0-37.0) g/dL RDW 16.5 H (11.5-15.5) % PT (9.0-12.0) sec INR (<1.2) Sodium 132 L (137-145) mmol/L BUN 20 H (7-17) mg/dL Creatinine 1.28 H (0.52-1.04) mg/dL Crossmatch See Detail 04/06/20 Range/Units 18:01 RBC (3.80-5.40) m/uL Hgb (11.4-16.0) gm/dL Hct (34.0-46.0) % MCV (80.0-100.0) fL MCH (25.0-35.0) pg MCHC (31.0-37.0) g/dL RDW (11.5-15.5) % PT 20.6 H (9.0-12.0) sec INR 2.1 H (<1.2) Sodium (137-145) mmol/L BUN (7-17) mg/dL Creatinine (0.52-1.04) mg/dL Crossmatch Thrombosis Risk Factor Assmnt - DVT/VTE Prophylaxis DVT/VTE Prophylaxis: Mechanical Prophylaxis ordered Assessment and Plan Assessment: Symptomatic anemia Acute blood loss anemia likely due to GI bleed History of peptic ulcer disease diagnosed in October 2019 History of factor V Leiden on long-term antibiotics with Coumadin Hypertension Hyperlipidemia GERD History of mitral prolapse Are sure that it is Hypothyroidism History of PE History of gastric sleeve surgery, vena cava filter placement Previous history of smoking Morbid obesity BMI 44.4 DVT prophylaxis with SCDs Plan: Patient will be continued on IV hydration and transfuse with 3 units of PRBC to keep the hemoglobin around 7. Anticoagulation is on hold. Continue with PPI IV twice a day and nothing by mouth. Gastrology was consulted. Monitor closely and further recommendations based on the clinical course. Prognosis is guarded. Time with Patient: Greater than 30
[2020-04-07] MEDS: ACETAMINOPHEN TAB 325 MG TAB PO PRN ×2 (16:54→22:57)
[2020-04-07] MEDS: ATORVASTATIN 40 MG TAB PO SCH (20:12)
[2020-04-07] MEDS ORDERED: ATORVASTATIN 40 MG TAB PO SCH (21:00)
[2020-04-07 22:57] LABS: % Iron Saturation 5.75 (12.00-45.00)
[2020-04-07 23:04] LABS: Ferritin 4.7 ng/mL (10.0-291.0)
--- NOTE | 2020-04-08 00:11 | P.PN ---
Subjective Progress Note Date: 04/07/20 Principal diagnosis: Symptomatic anemia Acute blood loss anemia and GI bleed and peptic ulcer disease Patient is a 70-year-old female with a known history of DVT, factor V Leiden on long-term anticoagulation with Coumadin, recent history of GI bleed and peptic ulcers in October 2019 status post EGD, osteoarthritis, hypothyroidism and other medical problems presents to ER with complaints of low hemoglobin level. Patient was seen by her primary care physician. Patient has been having exertional dyspnea recently along with shortness of breath and intermittent chest pains. Lab tests were done which showed hemoglobin level of 4.7. Patient was told to go to ER. Otherwise patient denied any complaints of nausea vomiting. No hematemesis or no melena. Denied any dysuria or hematuria. Patient had similar symptoms when she was diagnosed with peptic ulcer disease back in October 2019. Denied any symptoms at rest. No fever no chills. No cough or sputum production. No headache or dizziness or lightheadedness. Patient says that she was also having iron deficiency and did receive blood transfusions back in October. Hemoglobin was 4.6 on admission Creatinine 1.28 04/07/2020 Patient is currently lying in the bed comfortably. Feels better compared to yesterday. Hemoglobin did improve to 7. With 2 units of PRBC transfusion.0 patient is being continued on IV hydration and blood pressure is stable. Patient was also found to have iron deficiency. Gastroenterology is planning for EGD. Current medications reviewed. Objective - Vital Signs Vital signs: Vital Signs Temp 96.8 F L 04/07/20 16:52 Pulse 60 04/07/20 16:52 Resp 16 04/07/20 16:52 BP 129/61 04/07/20 16:52 Pulse Ox 98 04/07/20 16:52 Intake & Output 04/06/20 04/07/20 04/07/20 18:59 06:59 18:59 Intake Total 620 Balance 620 Weight 107.048 kg 106.7 kg Intake: Blood Product 620 As-1 Unit 310 [id number] As-1 Unit 310 [id number] Other: Voiding Method Toilet Toilet # Voids 1 - Exam PHYSICAL EXAMINATION: Patient is lying in the bed comfortably, no acute distress, awake alert and oriented.. HEENT: Normocephalic. Neck is supple. Pupils reactive. Nostrils clear. Oral cavity is moist. Ears reveal no drainage. Neck reveals no JVD, carotid bruits, or thyromegaly. CHEST EXAMINATION: Trachea is central. Symmetrical expansion. Lung harman clear to auscultation and percussion. CARDIAC: Normal S1, S2 with no gallops. No murmurs ABDOMEN: Soft. Bowel sounds normal. No organomegaly. No abdominal bruits. Extremities: reveal no edema. No clubbing or cyanosis Neurologically awake, alert, oriented x3 with well-coordinated movements. No focal deficits noted Skin: No rash or skin lesions. Psychiatric: Coperative. Nonsuicidal Musculoskeletal: No joint swelling or deformity. Normal range of motion. - Labs CBC & Chem 7: 04/07/20 14:09 04/06/20 17:50 Labs: Abnormal Lab Results - Last 24 Hours (Table) 04/06/20 04/06/20 04/06/20 Range/Units 17:40 17:50 17:50 RBC 2.49 L (3.80-5.40) m/uL Hgb 4.6 L* (11.4-16.0) gm/dL Hct 16.4 L* (34.0-46.0) % MCV 65.8 L (80.0-100.0) fL MCH 18.4 L (25.0-35.0) pg MCHC 27.9 L (31.0-37.0) g/dL RDW 16.5 H (11.5-15.5) % Lymphocytes # (1.0-4.8) k/uL Lymphocytes # (Manual) (1.0-4.8) k/uL PT (9.0-12.0) sec INR (<1.2) Sodium 132 L (137-145) mmol/L BUN 20 H (7-17) mg/dL Creatinine 1.28 H (0.52-1.04) mg/dL Crossmatch See Detail 04/06/20 04/06/20 04/07/20 Range/Units 18:01 23:45 07:03 RBC 2.87 L 3.20 L (3.80-5.40) m/uL Hgb 6.0 L* 7.0 L (11.4-16.0) gm/dL Hct 20.1 L 23.4 L (34.0-46.0) % MCV 70.2 L 73.1 L (80.0-100.0) fL MCH 20.9 L 21.7 L (25.0-35.0) pg MCHC 29.8 L 29.7 L (31.0-37.0) g/dL RDW 21.2 H 20.7 H (11.5-15.5) % Lymphocytes # (1.0-4.8) k/uL Lymphocytes # (Manual) 0.82 L (1.0-4.8) k/uL PT 20.6 H (9.0-12.0) sec INR 2.1 H (<1.2) Sodium (137-145) mmol/L BUN (7-17) mg/dL Creatinine (0.52-1.04) mg/dL Crossmatch 04/07/20 Range/Units 14:09 RBC 3.31 L (3.80-5.40) m/uL Hgb 7.3 L (11.4-16.0) gm/dL Hct 23.7 L (34.0-46.0) % MCV 71.7 L (80.0-100.0) fL MCH 22.1 L (25.0-35.0) pg MCHC 30.9 L (31.0-37.0) g/dL RDW 20.8 H (11.5-15.5) % Lymphocytes # 0.8 L (1.0-4.8) k/uL Lymphocytes # (Manual) (1.0-4.8) k/uL PT (9.0-12.0) sec INR (<1.2) Sodium (137-145) mmol/L BUN (7-17) mg/dL Creatinine (0.52-1.04) mg/dL Crossmatch Assessment and Plan Assessment: Symptomatic anemia Acute blood loss anemia likely due to GI bleed Microcytic iron deficiency anemia History of peptic ulcer disease diagnosed in October 2019 History of factor V Leiden on long-term antibiotics with Coumadin Hypertension Hyperlipidemia GERD History of mitral prolapse Are sure that it is Hypothyroidism History of PE History of gastric sleeve surgery, vena cava filter placement Previous history of smoking Morbid obesity BMI 44.4 DVT prophylaxis with SCDs Plan: Patient will be continued on IV hydration. Patient is status post 2 units of PRBC transfusion.. Anticoagulation is on hold. Continue with PPI IV twice a day and nothing by mouth. Gastrology Is planning for EGD. Continue with iron IV supplementation.. Monitor closely and further recommendations based on the clinical course. Prognosis is guarded. Time with Patient: Greater than 30
[2020-04-08] MEDS: LEVOTHYROXINE 137 MCG TAB PO SCH (02:59)
[2020-04-08] MEDS: FUROSEMIDE 20 MG TAB PO SCH (06:14)
[2020-04-08] MEDS ORDERED: LIDOCAINE 1% INJ 10MG/ML (20 ML MDV) ONE (07:51)
[2020-04-08] MEDS ORDERED: fentaNYL (PF) 50 MCG/ML 2 ML AMP ONE (07:51)
[2020-04-08] MEDS ORDERED: PROPOFOL 10 MG/ML 20 ML VIAL IV ONE (07:51)
[2020-04-08] MEDS ORDERED: MIDAZOLAM 2 MG/2 ML VIAL ONE (07:51)
[2020-04-08] MEDS ORDERED: LACTATED RINGERS 1,000 ML IV ONE (07:54)
--- NOTE | 2020-04-08 08:50 | P.CONS ---
History of Present Illness - Reason for Consult Consult date: 04/07/20 Anemia Requesting physician: Nayan Richmond - Chief Complaint Anemia - History of Present Illness 70-year-old female with multiple medical comorbidities including mitral valve prolapse, hyperlipidemia, hypertension, prior DVT/PE, factor V Leiden disorder and GERD who presented to the hospital due to anemia found on an outpatient laboratory evaluation. The patient reports feeling extremely fatigued prior to presentation. She reports she could not take 12 steps going to her bathroom without becoming somewhat short of breath. The patient is on chronic anticoagulation therapy due to her history of factor V Leiden disorder. The patient previously underwent EGD on 12/2014 prior to her sleeve gastrectomy which showed gastritis and a hiatal hernia. Colonoscopy was performed on 09/2018 and significant for polyps. 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 Patient extremely anemic with hemoglobin of 4.6 on current presentation. She is status post transfusion of packed red blood cells. She continues to deny any signs or symptoms of GI bleeding, no constipation, diarrhea, hematochezia, melena, hematemesis or coffee-ground emesis reported. Review of Systems REVIEW OF SYSTEMS: CONSTITUTIONAL: Denies any fevers, chills, weight change but she does report extreme fatigue. CARDIOVASCULAR: Denies any chest pain, palpitations high or low blood pressures RESPIRATORY: Denies any hemoptysis or cough but does report shortness of breath worse with movement or exertion. GENITOURINARY: No dysuria or hematuria. MUSCULOSKELETAL: No focal weakness reported. SKIN: Denies any new rashes or lesions, jaundice or pallor. PSYCHIATRIC: Denies any depression or anxiety. NEUROLOGY: Denies headache, denies any new focal deficits. EARS/NOSE/THROAT: No recent hearing change, congestion, nasal discharge or sore throat. EYES: No pain in eyes, discharge or change in vision. GASTROINTESTINAL: As per HPI. Past Medical History Past Medical History: Blood Disorder, Deep Vein Thrombosis (DVT), GERD/Reflux, Hyperlipidemia, Hypertension, Mitral Valve Prolapse (MVP), Osteoarthritis (OA), Pulmonary Embolus (PE), Thyroid Disorder Additional Past Medical History / Comment(s): migraines, MVP with regurgitation, hx ulcer, hiatal hernia, Factor V Leiden, varicose veinstakes coumadin at home History of Any Multi-Drug Resistant Organisms: None Reported Past Surgical History: Bariatric Surgery, Bowel Resection, Cholecystectomy, Hernia Repair, Orthopedic Surgery Additional Past Surgical History / Comment(s): GASTRIC SLEEVE,ORIF RT ANKLE,"bowel release x 2",rt cataract, vena cava filter Past Anesthesia/Blood Transfusion Reactions: Postoperative Nausea & Vomiting (PONV) Additional Past Anesthesia/Blood Transfusion Reaction / Comm: post op migraine for 5 days Past Psychological History: No Psychological Hx Reported Smoking Status: Former smoker, Never smoker Past Alcohol Use History: None Reported Past Drug Use History: None Reported - Past Family History Father Family Medical History: Cancer Mother Family Medical History: Cancer Medications and Allergies Home Medications Medication Instructions Recorded Confirmed Type Losartan/Hydrochlorothiazide 1 tab PO HS 12/22/14 04/06/20 History [Losartan-Hctz 100-25 mg Tab] Atorvastatin [Lipitor] 40 mg PO HS 06/21/15 04/06/20 History Warfarin Sodium [Coumadin] 6 mg PO SUMOWETHSA@209906/21/15 04/06/20 History Warfarin [Coumadin] 3 mg PO TUFR@2100 06/21/15 04/06/20 History Furosemide [Lasix] 20 mg PO DAILY@0600 11/01/19 04/06/20 History Levothyroxine Sodium [Synthroid] 137 mcg PO DAILY@0200 11/01/19 04/06/20 History Omeprazole [PriLOSEC] 40 mg PO HS 11/01/19 04/06/20 History rOPINIRole HCL 3 mg PO TID PRN 11/01/19 04/06/20 History Guaifen/Phenyleph/Acetaminophn 2 tab PO ONCE PRN 04/06/20 04/06/20 History [Tylenol Sinus Severe Caplet] [place] Xl 2 tab PO DAILY 04/06/20 04/06/20 History Allergies Allergy/AdvReac Type Severity Reaction Status Date / Time codeine Allergy Swelling,mi Verified 04/06/20 17:24 graine morphine Allergy Swelling,mi Verified 04/06/20 17:24 graine nifedipine [From Procardia] Allergy Swelling,mi Verified 04/06/20 17:24 graine Physical Exam Vitals: Vital Signs Temp Pulse Pulse Resp BP BP Pulse Ox 04/07/20 08:20 98 F 60 16 102/69 97 04/07/20 06:24 64 16 105/68 94 L 04/07/20 05:19 97.9 F 61 16 122/69 98 04/07/20 04:00 98.0 F 86 16 114/73 96 04/07/20 02:49 98.0 F 67 16 114/73 96 04/07/20 02:19 97.8 F 69 16 99/62 99 04/07/20 02:09 98.1 F 68 16 91/56 04/07/20 00:00 98.0 F 69 16 104/69 99 04/06/20 21:55 98.3 F 72 17 109/76 99 04/06/20 20:20 97.9 F 76 18 123/59 98 04/06/20 19:56 98.3 F 76 18 109/79 100 04/06/20 19:50 98.2 F 72 18 115/52 04/06/20 19:40 98.2 F 74 18 118/57 99 04/06/20 19:20 98 04/06/20 18:04 18 04/06/20 16:48 98.0 F 74 20 138/79 100 Intake and Output 04/06/20 04/07/20 04/07/20 22:59 06:59 14:59 Intake Total 310 310 Balance 310 310 Intake: Blood Product 310 310 Rc As-1 Unit 310 [id number] Rc As-1 Unit 310 [id number] Other: Voiding Method Toilet Toilet Weight 107.048 kg 106.7 kg On physical examination, patient appears comfortable in no apparent distress. HEAD: Normocephalic, atraumatic. EYES: No scleral icterus. No conjunctival injection. MOUTH: No lesions, tongue midline. NECK: Trachea midline, no gross abnormalities. CHEST: Clear to auscultation with no wheezing or rhonchi appreciated. HEART: S1-S2 appreciated. ABDOMEN: Soft, obese. Bowel sounds are positive. No organomegaly. No guarding o r rigidity. EXTREMITIES: No pedal edema. SKIN: No rashes, no jaundice. NEUROLOGIC: Alert and oriented x3. No focal deficits. Results CBC & Chem 7: 04/07/20 14:09 04/06/20 17:50 Labs: Abnormal Lab Results - Last 24 Hours (Table) 04/06/20 04/06/20 04/06/20 Range/Units 17:40 17:50 17:50 RBC 2.49 L (3.80-5.40) m/uL Hgb 4.6 L* (11.4-16.0) gm/dL Hct 16.4 L* (34.0-46.0) % MCV 65.8 L (80.0-100.0) fL MCH 18.4 L (25.0-35.0) pg MCHC 27.9 L (31.0-37.0) g/dL RDW 16.5 H (11.5-15.5) % Lymphocytes # (Manual) (1.0-4.8) k/uL PT (9.0-12.0) sec INR (<1.2) Sodium 132 L (137-145) mmol/L BUN 20 H (7-17) mg/dL Creatinine 1.28 H (0.52-1.04) mg/dL Crossmatch See Detail 04/06/20 04/06/20 04/07/20 Range/Units 18:01 23:45 07:03 RBC 2.87 L 3.20 L (3.80-5.40) m/uL Hgb 6.0 L* 7.0 L (11.4-16.0) gm/dL Hct 20.1 L 23.4 L (34.0-46.0) % MCV 70.2 L 73.1 L (80.0-100.0) fL MCH 20.9 L 21.7 L (25.0-35.0) pg MCHC 29.8 L 29.7 L (31.0-37.0) g/dL RDW 21.2 H 20.7 H (11.5-15.5) % Lymphocytes # (Manual) 0.82 L (1.0-4.8) k/uL PT 20.6 H (9.0-12.0) sec INR 2.1 H (<1.2) Sodium (137-145) mmol/L BUN (7-17) mg/dL Creatinine (0.52-1.04) mg/dL Crossmatch Assessment and Plan (1) Iron deficiency anemia Narrative/Plan: 70-year-old female with multiple medical comorbidities including mitral valve prolapse, hyperlipidemia, hypertension, prior DVT/PE, factor V Leiden disorder and GERD who presented to the hospital due to anemia found on an outpatient laboratory evaluation. Colonoscopy was performed on 09/2018 and significant for polyps. 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 Iron studies were ordered and significant for iron deficiency anemia and the patient has been started on iron supplementation. Suspicion is for bleeding from vascular ectasia previously noted on EGD, differential also includes peptic ulcer disease, small bowel angiectasia, esophagitis or other etiology. Current Visit: No Status: Acute Priority: High Code(s): D50.9 - IRON DEFICIENCY ANEMIA, UNSPECIFIED SNOMED Code(s): 41576245 (2) Gastric antral vascular ectasia Current Visit: Yes Status: Acute Code(s): K31.819 - ANGIODYSPLASIA OF STOMACH AND DUODENUM WITHOUT BLEEDING SNOMED Code(s): 51075378 (3) Factor V Leiden Current Visit: No Status: Chronic Priority: Medium Code(s): D68.51 - ACTIVATED PROTEIN C RESISTANCE SNOMED Code(s): 094348435 Plan: Supportive care Clear liquid diet Nothing by mouth after midnight Plan for EGD tomorrow for further evaluation and possible argon plasma coagulation therapy of vascular ectasia Continue to monitor hemoglobin and hematocrit and transfuse as needed Iron studies ordered to evaluate for iron deficiency Possible small bowel capsule endoscopy pending findings of EGD Thank you for allowing us to participate in the care of the patient we will continue to follow
[2020-04-08] MEDS: SODIUM FERRIC GLUCONAT-SUCROSE 125 MG in SODIUM CHLORIDE 0.9% 100 ML IVPB SCH (08:59)
[2020-04-08] MEDS: PANTOPRAZOLE 40 MG/10 ML VIAL IVP SCH ×2 (09:00→21:36)
--- NOTE | 2020-04-08 09:02 | P.PCN ---
Date of Procedure: 04/08/20 Description of Procedure: BRIEF HISTORY: 70-year-old female with multiple medical comorbidities including mitral valve prolapse, hyperlipidemia, hypertension, prior DVT/PE, factor V Leiden disorder and GERD who presented to the hospital due to anemia found on an outpatient laboratory evaluation. The patient reports feeling extremely fatigued prior to presentation. She reports she could not take 12 steps going to her bathroom without becoming somewhat short of breath. The patient is on chronic anticoagulation therapy due to her history of factor V Leiden disorder. The patient previously underwent EGD on 12/2014 prior to her sleeve gastrectomy which showed gastritis and a hiatal hernia. Colonoscopy was performed on 09/2018 and significant for polyps. 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 Patient extremely anemic with hemoglobin of 4.6 on current presentation. She is status post transfusion of packed red blood cells. She continues to deny any signs or symptoms of GI bleeding, no constipation, diarrhea, hematochezia, melena, hematemesis or coffee-ground emesis reported. PROCEDURE PERFORMED: Esophagogastroduodenoscopy with biopsy and argon plasma coagulation therapy/ERBE. PREOPERATIVE DIAGNOSIS: Iron deficiency anemia ESTIMATED BLOOD LOSS: Minimal. IV sedation per anesthesia. PROCEDURE: After informed consent was obtained, the patient was brought into the endoscopy unit. IV sedation was administered by Anesthesia under continuous monitoring. Initially the Olympus GIF-190 video endoscope was inserted into the mouth. Esophagus intubated without any difficulty. It was gradually advanced into the stomach and duodenum and carefully examined. The bulb and the second part of the duodenum appeared normal, With biopsies taken. The scope at this time was withdrawn to the stomach, adequately insufflated with air, and upon careful examination, mucosa of the antrum, body, cardia and the fundus appeared normal, With post surgical anatomy consistent with patient's history of sleeve gastrectomy. There is also focal areas of linear erythema in the antrum which were noted to be oozing blood and suggestive of gastric antral vascular ectasia which was treated with argon plasma coagulation therapy with good hemostasis achieved. The scope was then withdrawn into the esophagus. The GE junction was located at 37 cm from the incisors. The esophagus appeared normal. There were no erosions or ulcerations seen and the patient tolerated the procedure well. IMPRESSION: 1. 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 RECOMMENDATIONS: The findings of this examination were discussed with the patient. Okay for full liquid diet today. Okay for medications. Would resume patient's Coumadin tomorrow. Continue Protonix therapy. Would recommend patient be DC'd on PPI therapy. We'll proceed to video capsule endoscopy to rule out any small bowel bleeding although suspicion is that anemia is secondary to oozing from gastric antral vascular ectasia. Continue IV Ferrlecit.
[2020-04-08] MEDS ORDERED: SIMETHICONE 40 MG/0.6 ML DROPS 2,000 MG/30 ML BOTTLE PO ONE ×2 (10:55→11:58)
[2020-04-08 11:29] LABS: Anisocytosis Moderate; Basophils % (A) 1 %; Eosinophils # (A) 0.2 k/uL (0-0.7); Eosinophils % (A) 5 %; HCT 27.5 % (34.0-46.0); Hypochromasia Marked; Lymphocytes % (A) 23 %; MCH 20.9 pg (25.0-35.0); MCHC 29.2 g/dL (31.0-37.0); MCV 71.6 fL (80.0-100.0); Microcytosis Marked; Monocytes # (A) 0.4 k/uL (0-1.0); Monocytes % (A) 8 %; Neutrophils # (A) 2.6 k/uL (1.3-7.7); Neutrophils % (A) 59 %; Platelet Count 252 k/uL (150-450); Poikilocytosis Marked; RBC 3.83 m/uL (3.80-5.40); RDW 21.4 % (11.5-15.5); WBC 4.4 k/uL (3.8-10.6)
[2020-04-08] MEDS: ATORVASTATIN 40 MG TAB PO SCH (21:35)
[2020-04-09] MEDS: LEVOTHYROXINE 137 MCG TAB PO SCH (02:22)
[2020-04-09] MEDS: FUROSEMIDE 20 MG TAB PO SCH (05:58)
[2020-04-09 08:22] LABS: Anisocytosis Moderate; Basophils # (A) 0.1 k/uL (0-0.2); Basophils % (A) 1 %; Eosinophils # (A) 0.2 k/uL (0-0.7); Eosinophils % (A) 3 %; HCT 27.4 % (34.0-46.0); Hypochromasia Marked; Lymphocytes # (A) 1.1 k/uL (1.0-4.8); Lymphocytes % (A) 17 %; MCH 21.1 pg (25.0-35.0); MCHC 29.3 g/dL (31.0-37.0); Mean Platelet Volume 7.1; Microcytosis Marked; Monocytes # (A) 0.3 k/uL (0-1.0); Monocytes % (A) 4 %; Neutrophils # (A) 4.9 k/uL (1.3-7.7); Neutrophils % (A) 73 %; Platelet Count 255 k/uL (150-450); Poikilocytosis Marked; RDW 22.8 % (11.5-15.5); WBC 6.7 k/uL (3.8-10.6)
[2020-04-09 08:36] LABS: Potassium 3.7 mmol/L (3.5-5.1)
[2020-04-09] MEDS: PANTOPRAZOLE 40 MG/10 ML VIAL IVP SCH (08:41)
[2020-04-09 08:48] VITALS: TEMP 98
[2020-04-09] MEDS: SODIUM FERRIC GLUCONAT-SUCROSE 125 MG in SODIUM CHLORIDE 0.9% 100 ML IVPB SCH (09:46)
[2020-04-09 11:55] VITALS: BP 139/78; PULSE 65
--- NOTE | 2020-04-09 15:25 | PN ---
PROGRESS NOTE DATE OF DICTATION: 04/09/2020: The patient is a 70-year-old pleasant white female admitted to the hospital with severe anemia with a hemoglobin of 7.5, requiring 2 units of PRBC transfusion. She underwent an upper endoscopy by Dr. Matson yesterday that showed scattered angioectasia with active oozing in the stomach that was cauterized. The patient was started back on Coumadin yesterday. She is doing well. Denies any bleeding. No abdominal pain. No nausea, vomiting. PHYSICAL EXAMINATION: Appears comfortable. No apparent distress. Vital signs are stable. Blood pressure is 133/86, pulse rate 65, temperature 98. HEENT examination unremarkable. Conjunctivae pink. Sclerae anicteric. Oral cavity no lesions. NECK: No JVD or lymph node enlargement. CHEST: Clear to auscultation. HEART: Regular rate and rhythm. ABDOMEN: Soft. Bowel sounds are positive. No organomegaly. EXTREMITIES: No pedal edema. SKIN: No rashes. NEUROLOGIC: Alert and oriented x3. No focal deficits. LABS: Labs from today show hemoglobin 8 and WBC 6.7 and platelets normal. Rest of the labs are within normal limits. IMPRESSION: 1. Severe symptomatic anemia with a hemoglobin of 6 g/dL requiring 2 units of blood transfusion. Iron indices consistent with iron deficiency anemia. Status post EGD yesterday that showed gastric angioectasia with some active oozing, status post cautery. She subsequently had small bowel capsule endoscopy, and as per Dr. Matson this morning, the study was unremarkable. Hemoglobin stable at 8 g/dL. 2. History of deep venous thrombosis, on Coumadin, which has been resumed today. RECOMMENDATIONS: 1. The patient can be discharged home today. 2. Start her on iron supplements twice daily. 3. Follow up with Dr. Matson with close monitoring of CBC on a monthly basis. Thank you for this consultation. MMODL / IJN: [id number] /
--- NOTE | 2020-04-09 15:57 | P.PN ---
Subjective Progress Note Date: 04/08/20 Principal diagnosis: Symptomatic anemia Acute blood loss anemia and GI bleed and peptic ulcer disease Patient is a 70-year-old female with a known history of DVT, factor V Leiden on long-term anticoagulation with Coumadin, recent history of GI bleed and peptic ulcers in October 2019 status post EGD, osteoarthritis, hypothyroidism and other medical problems presents to ER with complaints of low hemoglobin level. Patient was seen by her primary care physician. Patient has been having exertional dyspnea recently along with shortness of breath and intermittent chest pains. Lab tests were done which showed hemoglobin level of 4.7. Patient was told to go to ER. Otherwise patient denied any complaints of nausea vomiting. No hematemesis or no melena. Denied any dysuria or hematuria. Patient had similar symptoms when she was diagnosed with peptic ulcer disease back in October 2019. Denied any symptoms at rest. No fever no chills. No cough or sputum production. No headache or dizziness or lightheadedness. Patient says that she was also having iron deficiency and did receive blood transfusions back in October. Hemoglobin was 4.6 on admission Creatinine 1.28 04/07/2020 Patient is currently lying in the bed comfortably. Feels better compared to yesterday. Hemoglobin did improve to 7. With 2 units of PRBC transfusion.0 patient is being continued on IV hydration and blood pressure is stable. Patient was also found to have iron deficiency. Gastroenterology is planning for EGD. 04/08/2020 Patient is currently sitting in the bed. Denied any dark colored stools. Patient had EGD showed Gastric antral vascular ectasia with oozing of blood noted, treated with argon plasma coagulation therapy. Patient is being continued on PPI. GI recommends to restart on Coumadin tomorrow. Continue with iron supplementation. She endoscopy is being done today. No fever no chills. No cough is from production. No chest pain or shortness of breath. Patient is feeling better. Hemoglobin is 8.0 today. Current medications reviewed. Objective - Vital Signs Vital signs: Vital Signs Temp 97.6 F 04/08/20 20:00 Pulse 69 04/08/20 20:00 Resp 16 04/08/20 20:00 BP 115/59 04/08/20 20:00 Pulse Ox 96 04/08/20 20:00 Intake & Output 04/08/20 04/08/20 04/09/20 06:59 18:59 06:59 Intake Total 340 Output Total 1025 800 Balance -1025 -460 Weight 104.6 kg Intake: IV 100 Oral 240 Output: Urine 1025 800 Other: Voiding Method Toilet Toilet Toilet - Exam PHYSICAL EXAMINATION: Patient is lying in the bed comfortably, no acute distress, awake alert and oriented.. HEENT: Normocephalic. Neck is supple. Pupils reactive. Nostrils clear. Oral cavity is moist. Ears reveal no drainage. Neck reveals no JVD, carotid bruits, or thyromegaly. CHEST EXAMINATION: Trachea is central. Symmetrical expansion. Lung harman clear to auscultation and percussion. CARDIAC: Normal S1, S2 with no gallops. No murmurs ABDOMEN: Soft. Bowel sounds normal. No organomegaly. No abdominal bruits. Extremities: reveal no edema. No clubbing or cyanosis Neurologically awake, alert, oriented x3 with well-coordinated movements. No fo linh deficits noted Skin: No rash or skin lesions. Psychiatric: Coperative. Nonsuicidal Musculoskeletal: No joint swelling or deformity. Normal range of motion. - Labs CBC & Chem 7: 04/09/20 07:48 04/09/20 07:48 Labs: Abnormal Lab Results - Last 24 Hours (Table) 04/08/20 Range/Units 09:44 Hgb 8.0 L (11.4-16.0) gm/dL Hct 27.5 L (34.0-46.0) % MCV 71.6 L (80.0-100.0) fL MCH 20.9 L (25.0-35.0) pg MCHC 29.2 L (31.0-37.0) g/dL RDW 21.4 H (11.5-15.5) % Assessment and Plan Assessment: Symptomatic anemia Acute blood loss anemia likely due to GI bleed. EGD showed gastric antral vascular ectasia with oozing of blood treated with plasma coagulation therapy. Microcytic iron deficiency anemia History of peptic ulcer disease diagnosed in October 2019 History of factor V Leiden on long-term antibiotics with Coumadin Hypertension Hyperlipidemia GERD History of mitral prolapse Are sure that it is Hypothyroidism History of PE History of gastric sleeve surgery, vena cava filter placement Previous history of smoking Morbid obesity BMI 44.4 DVT prophylaxis with SCDs Plan: Patient will be continued on IV hydration. Patient is status post 2 units of PRBC transfusion.. Anticoagulation is on hold. Continue with PPI IV twice a day and nothing by mouth. Status post EGD.. Continue with iron IV supplementation.. Monitor closely and further recommendations based on the clinical course. Prognosis is guarded. Time with Patient: Greater than 30
[2020-04-09] MEDS ORDERED: WARFARIN 3 MG TAB PO SCH (21:00)
[2020-04-10] MEDS ORDERED: WARFARIN 3 MG TAB PO SCH (21:00)
== END 2020-04-09 18:25 | disposition home or self-care (01) | DRG 378 ==
LOC: EC 16:46 → 3SCARD 19:09
PROVIDERS: ADMIT Internal Medicine; ATTEND Internal Medicine
PROC: 30233N1 Transfusion of Nonautologous Red Blood Cells into Peripheral Vein, Percutaneous Approach (ICD-10-PCS; 2020-04-08)
PROC: 0W3P8ZZ Control Bleeding in Gastrointestinal Tract, Via Natural or Artificial Opening Endoscopic (ICD-10-PCS; principal; 2020-04-08 07:17)
PROC: 0DB98ZX Excision of Duodenum, Via Natural or Artificial Opening Endoscopic, Diagnostic (ICD-10-PCS; principal; 2020-04-08 07:17)
DX: K31.811 Angiodysplasia of stomach and duodenum with bleeding (principal); D62 Acute posthemorrhagic anemia; D68.51 Activated protein C resistance; Z68.41 Body mass index [BMI] 40.0-44.9, adult; K44.9 Diaphragmatic hernia without obstruction or gangrene; D50.9 Iron deficiency anemia, unspecified; E03.9 Hypothyroidism, unspecified; E66.01 Morbid (severe) obesity due to excess calories; E78.5 Hyperlipidemia, unspecified; I10 Essential (primary) hypertension; I34.1 Nonrheumatic mitral (valve) prolapse; K21.9 Gastro-esophageal reflux disease without esophagitis; K27.9 Peptic ulcer, site unspecified, unspecified as acute or chronic, without hemorrhage or perforation; G43.909 Migraine, unspecified, not intractable, without status migrainosus; Z20.828 Contact with and (suspected) exposure to other viral communicable diseases; M19.90 Unspecified osteoarthritis, unspecified site; I83.90 Asymptomatic varicose veins of unspecified lower extremity; Z79.01 Long term (current) use of anticoagulants; Z79.890 Hormone replacement therapy; Z79.899 Other long term (current) drug therapy; Z86.711 Personal history of pulmonary embolism; Z86.718 Personal history of other venous thrombosis and embolism; Z87.891 Personal history of nicotine dependence; Z98.84 Bariatric surgery status; Z88.5 Allergy status to narcotic agent; Z88.8 Allergy status to other drugs, medicaments and biological substances; Z90.49 Acquired absence of other specified parts of digestive tract; Z98.49 Cataract extraction status, unspecified eye; Z95.828 Presence of other vascular implants and grafts; Z80.9 Family history of malignant neoplasm, unspecified
CPT/HCPCS: 36415; 36430; 43255; 80048; 82728; 83540; 83550; 83605; 85025; 85610; 85730; 86850; 86900; 86901; 86920; 91110; 96365; 96374; 99284

== ENCOUNTER 2020-07-13 13:30 | Inpatient (IN) | payer MEDICARE, OTHER ==
[2020-07-13 15:11] LABS: Anisocytosis Slight; Basophils % (A) 1 %; Eosinophils # (A) 0.1 k/uL (0-0.7); Eosinophils % (A) 3 %; Hypochromasia Marked; Lymphocytes # (A) 1.1 k/uL (1.0-4.8); Lymphocytes % (A) 26 %; MCH 21.8 pg (25.0-35.0); MCHC 28.5 g/dL (31.0-37.0); MCV 76.4 fL (80.0-100.0); Mean Platelet Volume 8.2; Microcytosis Slight; Monocytes # (A) 0.3 k/uL (0-1.0); Monocytes % (A) 6 %; Neutrophils # (A) 2.6 k/uL (1.3-7.7); Neutrophils % (A) 61 %; Platelet Count 246 k/uL (150-450); Poikilocytosis Marked; RBC 2.08 m/uL (3.80-5.40); RDW 17.8 % (11.5-15.5); WBC 4.2 k/uL (3.8-10.6)
[2020-07-13 15:14] LABS: INR 1.7 (<1.2); Prothrombin Time 16.6 sec (9.0-12.0)
[2020-07-13 15:15] LABS: HCT 15.9 % (34.0-46.0); HGB 4.5 gm/dL (11.4-16.0)
[2020-07-13] MEDS ORDERED: PANTOPRAZOLE 40 MG/10 ML VIAL IVP STA (15:17)
[2020-07-13 15:18] LABS: Albumin 3.5 g/dL (3.5-5.0); Calcium 9.1 mg/dL (8.4-10.2); Potassium 3.7 mmol/L (3.5-5.1); Total Bilirubin 0.3 mg/dL (0.2-1.3)
--- NOTE | 2020-07-13 15:28 | ED ---
General Adult HPI - General Chief complaint: Recheck/Abnormal Lab/Rx Stated complaint: Low hemoglobin Time Seen by Provider: 07/13/20 14:08 Source: patient, RN notes reviewed Mode of arrival: wheelchair Limitations: no limitations - History of Present Illness Initial comments: 70-year-old female with a past medical history of hyperlipidemia, hypertension, GI bleed ,factor V Leiden with history of PE presents to the emergency department for chief complaint of low hemoglobin. Patient states for the past 2 days she has felt short of breath and felt like her hemoglobin was low. She had this checked today at her doctor's office and it was found to be 6. She was sent into the emergency room. Patient does take Coumadin for history of factor V Leiden and PE. Patient reports she has not noticed any abnormally dark stools however takes iron so they are usually dark.Patient has no other complaints at this time including shortness of breath, chest pain, abdominal pain, nausea or vomiting, headache, or visual changes. - Related Data Home Medications Medication Instructions Recorded Confirmed Losartan/Hydrochlorothiazide 1 tab PO HS 12/22/14 07/13/20 [Losartan-Hctz 100-25 mg Tab] Atorvastatin [Lipitor] 40 mg PO HS 06/21/15 07/13/20 Warfarin Sodium [Coumadin] 6 mg PO DAILY 06/21/15 07/13/20 Warfarin [Coumadin] 1 mg PO SUMOWETHSA 06/21/15 07/13/20 Furosemide [Lasix] 20 mg PO DAILY 11/01/19 07/13/20 Levothyroxine Sodium [Synthroid] 137 mcg PO DAILY 11/01/19 07/13/20 rOPINIRole HCL 3 mg PO TID PRN 11/01/19 07/13/20 Omeprazole 20 mg PO DAILY 07/13/20 07/13/20 Previous Rx's Medication Instructions Recorded Ferrous Sulfate [Feosol] 325 mg PO BID #60 tab 04/09/20 Allergies Allergy/AdvReac Type Severity Reaction Status Date / Time codeine Allergy Swelling,mi Verified 07/13/20 15:47 graine morphine Allergy Swelling,mi Verified 07/13/20 15:47 graine nifedipine [From Procardia] Allergy Swelling,mi Verified 07/13/20 15:47 graine Review of Systems ROS Statement: Those systems with pertinent positive or pertinent negative responses have been documented in the HPI. ROS Other: All systems not noted in ROS Statement are negative. Past Medical History Past Medical History: Blood Disorder, Deep Vein Thrombosis (DVT), GERD/Reflux, Hyperlipidemia, Hypertension, Mitral Valve Prolapse (MVP), Osteoarthritis (OA), Pulmonary Embolus (PE), Thyroid Disorder Additional Past Medical History / Comment(s): migraines, MVP with regurgitation, hx ulcer, hiatal hernia, Factor V Leiden, varicose veinstakes coumadin at home History of Any Multi-Drug Resistant Organisms: None Reported Past Surgical History: Bariatric Surgery, Bowel Resection, Cholecystectomy, Hernia Repair, Orthopedic Surgery Additional Past Surgical History / Comment(s): GASTRIC SLEEVE,ORIF RT ANKLE,"bowel release x 2",rt cataract, vena cava filter Past Anesthesia/Blood Transfusion Reactions: Postoperative Nausea & Vomiting (PONV) Additional Past Anesthesia/Blood Transfusion Reaction / Comment(s): post op migraine for 5 days Past Psychological History: No Psychological Hx Reported Smoking Status: Former smoker Past Alcohol Use History: None Reported Past Drug Use History: None Reported - Past Family History Father Family Medical History: Cancer Mother Family Medical History: Cancer General Exam Limitations: no limitations General appearance: alert, in no apparent distress Head exam: Present: atraumatic, normocephalic, normal inspection Eye exam: Present: normal appearance, PERRL, EOMI. Absent: scleral icterus, conjunctival injection, periorbital swelling ENT exam: Present: normal exam, mucous membranes moist Neck exam: Present: normal inspection, full ROM. Absent: tenderness, meningismus Respiratory exam: Present: normal lung sounds bilaterally. Absent: respiratory distress, wheezes, rales, rhonchi, stridor Cardiovascular Exam: Present: regular rate, normal rhythm, normal heart sounds. Absent: systolic murmur, diastolic murmur, rubs, gallop, clicks GI/Abdominal exam: Present: soft, normal bowel sounds. Absent: distended, tenderness, guarding, rebound, rigid Rectal exam: Present: normal inspection, heme (+) stool. Absent: black stool, bloody stool Course Vital Signs 07/13/20 07/13/20 07/13/20 13:59 15:00 15:05 Temperature 98.0 F Pulse Rate 77 64 Respiratory 18 18 18 Rate Blood Pressure 120/71 128/71 O2 Sat by Pulse 97 98 Oximetry 07/13/20 07/13/20 16:00 16:10 Temperature 98 F 97.9 F Pulse Rate 73 73 Respiratory 16 18 Rate Blood Pressure 131/69 124/64 O2 Sat by Pulse 99 95 Oximetry EKG Findings - EKG Comments: EKG Findings:: Normal sinus rhythm, ventricular rate 69, IN interval 138, QTc 458 Medical Decision Making - Medical Decision Making Vitals are stable. Blood pressure 120/70. Heart rate in the 60s to 70s. Patient is well-appearing. Patient is somewhat short of breath. Hemoglobin was found to be 4.5. INR 1.7. Occult blood is positive. Patient was given Protonix. Patient was also given 2 units of packed red blood cells. Coumadin will be held. Dr. Cee spoke with Dr. Cassidy, recommends a third pint transfused. - Lab Data Result diagrams: 07/13/20 14:54 07/13/20 14:54 Lab Results 07/13/20 07/13/20 07/13/20 Range/Units 14:54 14:54 14:54 WBC 4.2 (3.8-10.6) k/uL RBC 2.08 L (3.80-5.40) m/uL Hgb 4.5 L* (11.4-16.0) gm/dL Hct 15.9 L* (34.0-46.0) % MCV 76.4 L (80.0-100.0) fL MCH 21.8 L (25.0-35.0) pg MCHC 28.5 L (31.0-37.0) g/dL RDW 17.8 H (11.5-15.5) % Plt Count 246 (150-450) k/uL Neutrophils % 61 % Lymphocytes % 26 % Monocytes % 6 % Eosinophils % 3 % Basophils % 1 % Neutrophils # 2.6 (1.3-7.7) k/uL Lymphocytes # 1.1 (1.0-4.8) k/uL Monocytes # 0.3 (0-1.0) k/uL Eosinophils # 0.1 (0-0.7) k/uL Basophils # 0.0 (0-0.2) k/uL Manual Slide Review Performed Hypochromasia Marked Poikilocytosis Marked Anisocytosis Slight Microcytosis Slight PT 16.6 H (9.0-12.0) sec INR 1.7 H (<1.2) APTT 28.0 (22.0-30.0) sec Sodium (137-145) mmol/L Potassium (3.5-5.1) mmol/L Chloride (98-107) mmol/L Carbon Dioxide (22-30) mmol/L Anion Gap mmol/L BUN (7-17) mg/dL Creatinine (0.52-1.04) mg/dL Est GFR (CKD-EPI)AfAm (>60 ml/min/1.73 sqM) Est GFR (CKD-EPI)NonAf (>60 ml/min/1.73 sqM) Glucose (74-99) mg/dL Calcium (8.4-10.2) mg/dL Total Bilirubin (0.2-1.3) mg/dL AST (14-36) U/L ALT (4-34) U/L Alkaline Phosphatase (38-126) U/L Total Protein (6.3-8.2) g/dL Albumin (3.5-5.0) g/dL Stool Occult Blood Positive H (Negative) Blood Type Blood Type Recheck Bld Type Recheck Status Antibody Screen Crossmatch Spec Expiration Date 07/13/20 07/13/20 Range/Units 14:54 14:54 WBC (3.8-10.6) k/uL RBC (3.80-5.40) m/uL Hgb (11.4-16.0) gm/dL Hct (34.0-46.0) % MCV (80.0-100.0) fL MCH (25.0-35.0) pg MCHC (31.0-37.0) g/dL RDW (11.5-15.5) % Plt Count (150-450) k/uL Neutrophils % % Lymphocytes % % Monocytes % % Eosinophils % % Basophils % % Neutrophils # (1.3-7.7) k/uL Lymphocytes # (1.0-4.8) k/uL Monocytes # (0-1.0) k/uL Eosinophils # (0-0.7) k/uL Basophils # (0-0.2) k/uL Manual Slide Review Hypochromasia Poikilocytosis Anisocytosis Microcytosis PT (9.0-12.0) sec INR (<1.2) APTT (22.0-30.0) sec Sodium 133 L (137-145) mmol/L Potassium 3.7 (3.5-5.1) mmol/L Chloride 103 (98-107) mmol/L Carbon Dioxide 25 (22-30) mmol/L Anion Gap 5 mmol/L BUN 31 H (7-17) mg/dL Creatinine 1.29 H (0.52-1.04) mg/dL Est GFR (CKD-EPI)AfAm 49 (>60 ml/min/1.73 sqM) Est GFR (CKD-EPI)NonAf 42 (>60 ml/min/1.73 sqM) Glucose 95 (74-99) mg/dL Calcium 9.1 (8.4-10.2) mg/dL Total Bilirubin 0.3 (0.2-1.3) mg/dL AST 27 (14-36) U/L ALT 14 (4-34) U/L Alkaline Phosphatase 69 (38-126) U/L Total Protein 6.0 L (6.3-8.2) g/dL Albumin 3.5 (3.5-5.0) g/dL Stool Occult Blood (Negative) Blood Type A Positive Blood Type Recheck A Pos Bld Type Recheck Status No Antibody Screen NEGATIVE Crossmatch See Detail Spec Expiration Date 07/16/20202353 Disposition Clinical Impression: GI bleed, Anemia Disposition: ADMITTED IP TO THIS [facility] Condition: Serious Is patient prescribed a controlled substance at d/c from ED?: No Referrals: Freeman Moran DO [Primary Care Provider] - 1-2 days Time of Disposition: 15:28
[2020-07-13] MEDS ORDERED: NALOXONE 0.4 MG/ML 1 ML VIAL IV PRN (16:22)
[2020-07-13] MEDS: SODIUM CHLORIDE 0.9% 1,000 ML IV SCH (16:58)
[2020-07-13] MEDS: SODIUM FERRIC GLUCONAT-SUCROSE 125 MG in SODIUM CHLORIDE 0.9% 100 ML IVPB SCH (19:42)
[2020-07-13] MEDS ORDERED: ACETAMINOPHEN TAB 500 MG TAB PO PRN (20:36)
[2020-07-13] MEDS: PANTOPRAZOLE 40 MG/10 ML VIAL IV SCH (20:54)
[2020-07-13] MEDS: ALPRAZolam 0.25 MG TAB PO PRN (20:54)
[2020-07-13] MEDS: TEMAZEPAM 15 MG CAP PO PRN (20:54)
[2020-07-13] MEDS: ATORVASTATIN 40 MG TAB PO SCH (20:54)
[2020-07-13] MEDS: LOSARTAN-HCTZ 50-12.5 MG 1 EACH TAB PO SCH (22:38)
--- NOTE | 2020-07-13 22:56 | HP ---
HISTORY AND PHYSICAL DATE OF SERVICE: 07/13/2020 CHIEF COMPLAINTS: Anemia and low hemoglobin. HISTORY OF PRESENT ILLNESS: This 70-year-old woman with a past medical history of multiple medical problems, including DVT, history of GERD, hypertension, hyperlipidemia, mitral prolapse, history of pulmonary embolism, being followed by Dr. Moran in the outpatient setting, was recently admitted with symptomatic anemia. EGD showed gastric antral vascular ectasia with oozing of blood, treated with plasma coagulation therapy by Dr. Matson. Hemoglobin was stable. Patient went home, but currently the patient has been admitted with significant anemia. Hemoglobin was found to be 4.5 on admission. The patient is unable to tell whether she is melenic or not because the patient is taking iron tablets at this time. There is no history of fever, rigors. No history of headache, loss of consciousness, seizures. Three units transfusion has been recommended. Dr. Matson has been re-consulted. Again, there is no history of fever, rigors or chills. No history of headache, loss of consciousness, seizures. PAST MEDICAL HISTORY: History of DVT, history of GERD, hypertension, hyperlipidemia, history of recent GI bleed, history of pulmonary embolism, history of recent EGD showing gastric antral vascular ectasia (GAVE), which was treated by Gastroenterology, and factor V Leiden mutation. HOME MEDICATIONS: Reviewed. They include levothyroxine 137 mcg p.o. daily, Coumadin 6 mg, omeprazole, Requip, losartan, Lasix, Ancef, Lipitor. ALLERGIES: CODEINE, MORPHINE, NIFEDIPINE. FAMILY HISTORY: History of cancer in the family. SOCIAL HISTORY: Occasional alcohol intake. Previous history of smoking. REVIEW OF SYSTEMS: ENT: No diminished hearing. No diminished vision. CARDIOVASCULAR SYSTEM: As mentioned earlier. RESPIRATORY SYSTEM: As mentioned earlier. GI: As mentioned earlier. : No dysuria or retention. NERVOUS SYSTEM: As mentioned earlier. ALLERGY/IMMUNOLOGY: No asthma, hayfever. MUSCULOSKELETAL: As mentioned earlier. HEMATOLOGY/ONCOLOGY: As mentioned earlier. ENDOCRINE: No history of diabetes, hypothyroidism. CONSTITUTIONAL: As mentioned earlier. DERMATOLOGY: Negative. RHEUMATOLOGY: Negative. PSYCHIATRY: As mentioned earlier. PHYSICAL EXAMINATION: Patient alert and oriented x3. Pulse 72, blood pressure 121/59, respirations 16, temperature 98.1, pulse ox 97% on room air. HEENT: Conjunctivae pale. Oral mucosa moist. NECK: No jugular venous distention. No carotid bruit. No lymph node enlargement. CARDIOVASCULAR SYSTEM: S1, S2 muffled. No S3. No S4. RESPIRATORY SYSTEM: Breath sounds diminished at the bases. A few rhonchi. No crackles. ABDOMEN: Soft, non-tender. No mass palpable. LEGS: No edema. No swelling. NERVOUS SYSTEM: Higher functions as mentioned earlier. Moves all 4 limbs. No focal motor or sensory deficit. LYMPHATICS: No lymph node palpable in neck, axillae or groin. SKIN: No ulcer, rash, bleeding. JOINTS: No active deforming arthropathy. LABS: WBC 4.2, hemoglobin 4.5, MCV 76.4. Sodium 133, creatinine is 1.29. Stool OB is positive. ASSESSMENT: 1. Severe anemia, possibly secondary to acute on chronic gastrointestinal blood loss anemia from gastric antral vascular ectasia. 2. History of recent esophagogastroduodenoscopy showing gastric antral vascular ectasia as well as plasma coagulation therapy. 3. Severe microcytic iron deficient anemia. 4. Increased creatinine with chronic kidney disease, stage 3. 5. Coumadin coagulopathy. 6. History of deep vein thrombosis. 7. Gastroesophageal reflux disease. 8. Hypertension. 9. Hyperlipidemia. 10.Mitral valve prolapse. 11.History of degenerative joint disease. 12.History of pulmonary embolism. 13.History of hypothyroidism. 14.History of mitral valve prolapse with regurgitation. 15.History of migraine. 16.History of factor V Leiden. 17.History of varicose veins. 18.Bariatric surgery. 19.History of bowel resection. 20.History of cholecystectomy. 21.History of gastric sleeve. 22.History of open reduction internal fixation of the ankle. 23.Remote history of nicotine dependence. 24.Obesity with body mass index of 44.6. 25.FULL CODE. RECOMMENDATIONS AND DISCUSSION: In this 70-year-old woman who presented with multiple complex medical issues, we will monitor the patient closely, continue the current medications, symptomatic treatment. I will transfuse at least 3 units transfusion with 20 Lasix for the symptomatic anemia. Will monitor for active bleeding. Monitor closely. Dr. Cassidy has been consulted for possible ICU management in case the patient bleeds. Otherwise, we will monitor the patient closely. I would recommend hematology/oncology as well as gastroenterology consultations, and Dr. Matson will be consulted for possible repeat EGD as well as repeat treatment otherwise. Prognosis extremely guarded because of multiple complex medical issues. Further recommendations to follow. A copy of this dictation is being forwarded to Dr. Moran, who is the primary physician. See orders for further details. Hold all the anticoagulants at this time. I would also recommend intravenous iron so that possibly oral iron may be avoided in the future unless it is indicated. MMODL / IJN: [id number] /
[2020-07-14] MEDS: LEVOTHYROXINE 137 MCG TAB PO SCH (07:06)
[2020-07-14 08:33] LABS: Anisocytosis Slight; Basophils % (A) 1 %; Eosinophils # (A) 0.2 k/uL (0-0.7); Eosinophils % (A) 5 %; HCT 23.4 % (34.0-46.0); Hypochromasia Marked; Lymphocytes # (A) 0.9 k/uL (1.0-4.8); Lymphocytes % (A) 21 %; MCH 26.2 pg (25.0-35.0); MCHC 32.3 g/dL (31.0-37.0); Mean Platelet Volume 7.9; Microcytosis Slight; Monocytes # (A) 0.3 k/uL (0-1.0); Monocytes % (A) 7 %; Neutrophils # (A) 2.6 k/uL (1.3-7.7); Neutrophils % (A) 64 %; Platelet Count 218 k/uL (150-450); Poikilocytosis Marked; RBC 2.89 m/uL (3.80-5.40); RDW 17.7 % (11.5-15.5); WBC 4.1 k/uL (3.8-10.6)
[2020-07-14] MEDS: FUROSEMIDE 20 MG TAB PO SCH (08:46)
[2020-07-14] MEDS: PANTOPRAZOLE 40 MG/10 ML VIAL IV SCH ×2 (08:46→22:15)
[2020-07-14] MEDS: SODIUM FERRIC GLUCONAT-SUCROSE 125 MG in SODIUM CHLORIDE 0.9% 100 ML IVPB SCH (08:46)
[2020-07-14 08:55] LABS: Calcium 8.7 mg/dL (8.4-10.2)
[2020-07-14 09:00] LABS: HGB 7.6 gm/dL (11.4-16.0)
[2020-07-14] MEDS ORDERED: PANTOPRAZOLE 40 MG/10 ML VIAL IV SCH (09:00)
--- NOTE | 2020-07-14 10:10 | P.CONS ---
History of Present Illness - Reason for Consult Consult date: 07/14/20 Iron deficiency anemia, GI bleed, anticoagulation - History of Present Illness The patient is a 70-year- known to our service.She has factor V Leiden mutation and massive pulmonary embolism in the early following abdominal hernia surgery.She had prior history of DVTs associated with pregnancies and possibly OCPs. She was subsequently diagnosed with factor V Leiden mutation. She has been on coumadin long-term since her PE and was recommended lifetime anticoagulation. she has not had any recurrence of DVT or PE since. She has been seen intermittently in the office usually for recommendations regarding anticoagulation related to her upcoming surgeries. Pt had temporary filter placed 11/21/11 this was in preparation for gastric bypass surgery which was 12/15/11. Pt had temporary filter removed 03/16/12. She was referred by Dr Viramontes for pre surgical clearance in 2014. She had been having progressive issues with reflux, and a gastric bypass was planned. She was seen on 01/12/15. It was recommended that the patient have a temporary filter placed for the surgery, interrupted anticoagulation prior and then resume after surgery. It was also recommended that the filter be removed after surgery once the patient is back on anticoagulation. The patient did not follow-up in the office after 01/03. She did have a filter placement this was a permanent one. She subsequently became nervous and actually canceled the surgery!. She has continued on Coumadin and does home monitoring with dose adjustment by her PCP. She states that INR control has been mostly satisfactory with lower levels, generally related to dietary infractions. She does not recall any per iod of significantly higher than desired INRs. The patient was seen in consultation in 11/10 when she was admitted with severe anemia. 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 She was therefore started back on anticoagulation. She was readmitted in 04/09 with the same issue. EGD revealed similar findings and the patient had repeat argon plasma coagulation. She was discharged on oral iron twice a day. The patient is admitted again with progressive weakness, and shortness of breath on exertion. Hemoglobin was again found to be in the 4-5 range. INR on admission was 1.7. The patient see blood transfusion and GI has been reconsulted. Consult was placed for further evaluation and recommendations. The patient has not noted any obvious bleeding, but does have black stools, more persistently since starting the iron. Review of Systems Constitutional: Reports fatigue, Reports weakness Eyes: denies blurred vision, denies pain Ears: deny: decreased hearing, ear discharge, earache, tinnitus Ears, nose, mouth and throat: Denies headache, Denies sore throat Cardiovascular: Reports dyspnea on exertion Respiratory: Reports dyspnea Gastrointestinal: Reports heartburn Genitourinary: Denies dysuria, Denies hematuria Menstruation: Reports postmenopausal Musculoskeletal: Reports muscle weakness Integumentary: Denies pruritus, Denies rash Neurological: Reports weakness Psychiatric: Denies anxiety, Denies depression Endocrine: Reports fatigue, Reports weight change Hematologic/Lymphatic: Reports as per HPI Past Medical History Past Medical History: Blood Disorder, Deep Vein Thrombosis (DVT), GERD/Reflux, Hyperlipidemia, Hypertension, Mitral Valve Prolapse (MVP), Osteoarthritis (OA), Pulmonary Embolus (PE), Thyroid Disorder Additional Past Medical History / Comment(s): migraines, MVP with regurgitation, hx ulcer, hiatal hernia, Factor V Leiden, varicose veinstakes coumadin at home History of Any Multi-Drug Resistant Organisms: None Reported Past Surgical History: Bariatric Surgery, Bowel Resection, Cholecystectomy, Hernia Repair, Orthopedic Surgery Additional Past Surgical History / Comment(s): GASTRIC SLEEVE,ORIF RT ANKLE,"bowel release x 2",rt cataract, vena cava filter Past Anesthesia/Blood Transfusion Reactions: Postoperative Nausea & Vomiting (PONV) Additional Past Anesthesia/Blood Transfusion Reaction / Comm: post op migraine for 5 days Past Psychological History: No Psychological Hx Reported Smoking Status: Former smoker Past Alcohol Use History: None Reported Past Drug Use History: None Reported - Past Family History Father Family Medical History: Cancer Mother Family Medical History: Cancer Medications and Allergies Home Medications Medication Instructions Recorded Confirmed Type Losartan/Hydrochlorothiazide 1 tab PO HS 12/22/14 07/13/20 History [Losartan-Hctz 100-25 mg Tab] Atorvastatin [Lipitor] 40 mg PO HS 06/21/15 07/13/20 History Warfarin Sodium [Coumadin] 6 mg PO DAILY 06/21/15 07/13/20 History Warfarin [Coumadin] 1 mg PO SUMOWETHSA 06/21/15 07/13/20 History Furosemide [Lasix] 20 mg PO DAILY 11/01/19 07/13/20 History Levothyroxine Sodium [Synthroid] 137 mcg PO DAILY 11/01/19 07/13/20 History rOPINIRole HCL 3 mg PO TID PRN 11/01/19 07/13/20 History Ferrous Sulfate [Feosol] 325 mg PO BID #60 tab 04/09/20 07/13/20 Rx Omeprazole 20 mg PO DAILY 07/13/20 07/13/20 History Allergies Allergy/AdvReac Type Severity Reaction Status Date / Time codeine Allergy Swelling,mi Verified 07/13/20 15:47 graine morphine Allergy Swelling,mi Verified 07/13/20 15:47 graine nifedipine [From Procardia] Allergy Swelling,mi Verified 07/13/20 15:47 graine Physical Exam Vitals: Vital Signs Temp Pulse Pulse Resp BP BP Pulse Ox 07/13/20 20:49 98.1 F 72 16 121/59 97 07/13/20 20:43 98.3 F 70 16 121/58 07/13/20 20:00 98.1 F 72 16 121/59 07/13/20 18:45 97.7 F 68 18 118/56 97 07/13/20 18:20 97.9 F 74 18 129/63 97 07/13/20 18:15 97.9 F 70 18 127/67 07/13/20 18:06 97.9 F 68 18 121/66 98 07/13/20 16:40 97.9 F 73 18 140/69 07/13/20 16:10 97.9 F 73 18 124/64 95 07/13/20 16:00 98 F 73 16 131/69 99 07/13/20 15:05 64 18 128/71 98 07/13/20 15:00 18 07/13/20 13:59 98.0 F 77 18 120/71 97 Intake and Output 07/13/20 07/13/20 07/13/20 06:59 14:59 22:59 Intake Total 620 Balance 620 Intake: Blood Product 620 Rc As-1 Unit 310 [id number] Rc As-1 Unit 310 [id number] Rc As-1 Unit 0 [id number] Other: Weight 110.677 kg 110.677 kg - Constitutional General appearance: no acute distress - EENT Eyes: EOMI, PERRLA ENT: hearing grossly normal, normal oropharynx - Neck Neck: no lymphadenopathy - Respiratory Respiratory: bilateral: CTA - Cardiovascular Rhythm: regular Heart sounds: normal: S1, S2 - Gastrointestinal General gastrointestinal: normal bowel sounds, soft - Integumentary Integumentary: normal - Neurologic Neurologic: CNII-XII intact - Musculoskeletal Musculoskeletal: generalized weakness, strength equal bilaterally - Psychiatric Psychiatric: A&O x's 3, appropriate affect Results CBC & Chem 7: 07/14/20 07:49 07/14/20 07:49 Labs: Abnormal Lab Results - Last 24 Hours (Table) 07/13/20 07/13/20 07/13/20 Range/Units 14:54 14:54 14:54 RBC 2.08 L (3.80-5.40) m/uL Hgb 4.5 L* (11.4-16.0) gm/dL Hct 15.9 L* (34.0-46.0) % MCV 76.4 L (80.0-100.0) fL MCH 21.8 L (25.0-35.0) pg MCHC 28.5 L (31.0-37.0) g/dL RDW 17.8 H (11.5-15.5) % PT 16.6 H (9.0-12.0) sec INR 1.7 H (<1.2) Sodium (137-145) mmol/L BUN (7-17) mg/dL Creatinine (0.52-1.04) mg/dL Total Protein (6.3-8.2) g/dL Stool Occult Blood Positive H (Negative) Crossmatch 07/13/20 07/13/20 Range/Units 14:54 14:54 RBC (3.80-5.40) m/uL Hgb (11.4-16.0) gm/dL Hct (34.0-46.0) % MCV (80.0-100.0) fL MCH (25.0-35.0) pg MCHC (31.0-37.0) g/dL RDW (11.5-15.5) % PT (9.0-12.0) sec INR (<1.2) Sodium 133 L (137-145) mmol/L BUN 31 H (7-17) mg/dL Creatinine 1.29 H (0.52-1.04) mg/dL Total Protein 6.0 L (6.3-8.2) g/dL Stool Occult Blood (Negative) Crossmatch See Detail Comments: EKG image reviewed Assessment and Plan (1) GI bleed Narrative/Plan: The patient has developed recurrent GI bleeds which have been fairly significant with hemoglobin dropping into the 4 range requiring multiple blood transfusions. The source of bleed appears to be gastric vascular ectasias, exacerbated by ongoing anticoagulation. The patient has had recurrent episodes of the same since 11/10 despite treatment with argon coagulation. Most likely her current episode is related to the same. - Agree with blood transfusion to keep hemoglobin greater than 7 - Discontinue anticoagulation - GI has been consulted. The patient will likely need repeat endoscopy. Current Visit: Yes Status: Acute Code(s): K92.2 - GASTROINTESTINAL HEMORRHAGE, UNSPECIFIED SNOMED Code(s): 09827923 (2) Anemia Narrative/Plan: Due to above. Hold anticoagulation presently. Transfuse to keep hemoglobin greater than 7. - The patient was discharged on oral iron in 04/09. However oral iron is unlikely to be effective for her at she has had gastric bypass surgery. Therefore she will need IV iron supplementation, and ongoing monitoring as an outpatient with additional supplementation as needed. - Start IV iron inpatient -Follow-up in the office in about 5-6 weeks with repeat CBC and iron studies and additional IV iron as needed. Ongoing monitoring and supplementation subsequently. Current Visit: Yes Status: Acute Code(s): D64.9 - ANEMIA, UNSPECIFIED SNOMED Code(s): 866216966 (3) Factor V Leiden Narrative/Plan: The patient has been on chronic anticoagulation because of recurrent thrombosis and underlying factor V Leiden mutation. However she is now having problems wit h recurrent major GI bleeds despite treatment. - During my consult in 11/10, I had discussed risk benefit in detail in terms of continuing versus stopping anticoagulation. At that time, it was the patient's first episode of GI bleed, with a specific source able to be identified and treated. Therefore it was reasonable to continue anticoagulation at that time. However the patient now has had recurrent episodes despite aggressive endoscopic treatment. During this admission her INR was actually somewhat below therapeutic level. Risk versus benefit was again discussed in detail with her. At this time definitely this favor stoppage of anticoagulation even if the patient is able to have repeat argon coagulation endoscopically. - The patient was advised that stopping anticoagulation could potentially place her at risk of recurrent thrombosis. In her case, the risk would be hopefully modified by the fact that her previous clots were all provoked and the fact that she does have an IVC filter in situ even though it has been more than a year since its placement. - I would therefore recommend reversal of Coumadin currently. No anticoagulation or antiplatelet therapy for now. Follow-up in the office in 5-6 weeks. If hemoglobin shows sufficient improvement then we can place the patient on baby aspirin at that time with continued close monitoring. If she tolerates that well without evidence of any recurrent GI bleed, (as well as potentially repeat endoscopic evaluation to check for resolution) then resumption of anticoagulation can be considered down the line. Current Visit: No Status: Chronic Priority: Medium Code(s): D68.51 - ACTIVATED PROTEIN C RESISTANCE SNOMED Code(s): 774801366
--- NOTE | 2020-07-14 18:57 | PN ---
PROGRESS NOTE DATE OF SERVICE: 07/14/2020 This 70-year-old woman was admitted with significant anemia, also had history of GAVE lesions. Dr. Matson has seen the patient and recommended possible intervention. The patient's hemoglobin is today 7.6. Patient received 3 units transfusion with Lasix. Patient being closely monitored. Creatinine is 1.20. The stool OB is positive. Past medical history reviewed. REVIEW OF SYSTEMS: Cardiovascular system: No angina or palpitations. RESPIRATORY: As mentioned earlier. GI: As mentioned earlier. no dysuria or retention. Hematology/oncology as mentioned earlier. CURRENT MEDICATIONS: Reviewed and include: 1. Tylenol. 2. Xanax. 3. Lipitor. 4. Iron IV. 5. Narcan. 6. Requip. Other labs are noted. PHYSICAL EXAMINATION: Alert and oriented times three. Pulse 65. Blood pressure 140/60, respiration 20, temperature 98.1, pulse ox 98% on room air. HEENT: Conjunctivae normal. NECK: No JVD. CARDIOVASCULAR: S1, S2 muffled. RESPIRATORY: Breath sounds diminished in the bases. No rhonchi. No crackles. ABDOMEN: Soft. Nontender. NERVOUS SYSTEM: No focal deficits. LABS: WBC 4.2, hemoglobin 7.2, sodium 134. ASSESSMENT: 1. Severe anemia possibly secondary to acute gastrointestinal bleed and acute blood- loss anemia from gastric antral vascular ectasia. 2. History of recent EGD showing GAVE as well as plasma coagulation therapy. 3. Severe microcytic iron deficient anemia. 4. Status post multiple transfusions. 5. Increased creatinine with chronic kidney stage 3. 6. Coumadin coagulopathy. 7. History of deep vein thrombosis. 8. Hypertension. 9. Hyperlipidemia. 10.History of mitral prolapse. 11.History of degenerative joint disease. 12.History of pulmonary embolism. 13.History of hypothyroidism. 14.History of mitral prolapse with mitral regurgitation. 15.History of migraines. 16.History of factor 5 Leiden mutation. 17.History of varicose veins. 18.History of bariatric surgery. 19.History of bowel resection. 20.History of cholecystectomy. 21.History of gastric sleeve. 22.History of ORIF of the ankle. 23.Remote history of nicotine dependence. 24.Obesity with body mass index of 44.6. 25.FULL CODE. RECOMMENDATIONS AND DISCUSSION: Recommend to continue current medical management and symptomatic treatment. Otherwise at this time I recommend continue to monitor hemoglobin, possible EGD, possible endoscopic treatment. Otherwise IV iron. Guarded prognosis because of multiple complex medical issues. Further recommendations to follow. MMODL / IJN: [id number] /
[2020-07-14] MEDS: SODIUM CHLORIDE 0.9% 1,000 ML IV SCH (19:09)
--- NOTE | 2020-07-14 21:09 | P.CONS ---
History of Present Illness - Reason for Consult Consult date: 07/14/20 iron deficiency anemia, gastric antral vascular ectasia Requesting physician: Hillary Álvarez - Chief Complaint anemia - History of Present Illness 70-year-old female with multiple medical comorbidities including mitral valve prolapse, hyperlipidemia, hypertension, prior DVT/PE, affect 5 Leiden disorder, gastric antral vascular ectasia and GERD who presented to the hospital for evaluation of anemia. Patient had anemia found on Outpatient laboratory evaluation. She has had episodes of recurrent iron deficiency anemia and is on endoscopic evaluation during hospitalizations for anemia in 10/2019 with findings of prior sleeve gastrectomy, gastric antral vascular ectasia with active oozing treated with argon plasma coagulation therapy and duodenal biopsy and then again in 03/2020 with the same findings. She reports that bowel movements are dark at baseline due to her iron therapy and she has not seen any change in her bowel habits. She denies any abdominal pain and has been tolerating a diet. She does report weakness, fatigue and shortness of breath which is worse with exacerbation. The patient is on chronic anticoagulation therapy due to her factor V Leiden disorder, however in discussion with the hematology service recommendations at this time are likely to hold anticoagulation due to her recurrent episodes of anemia. Colonoscopy in 09/2018 significant polypectomy. Review of Systems REVIEW OF SYSTEMS: CONSTITUTIONAL: Denies any fevers, chills, weight change he patient is reporting fatigue. CARDIOVASCULAR: Denies any chest pain, palpitations high or low blood pressures RESPIRATORY: Denies any hemoptysis or cough but the patient is reporting shortness of breath which is worsened with exertion. GENITOURINARY: No dysuria or hematuria. MUSCULOSKELETAL: No weakness reported. SKIN: Denies any new rashes or lesions, jaundice or pallor. PSYCHIATRIC: Denies any depression or anxiety. NEUROLOGY: Denies headache, denies any new focal deficits. EARS/NOSE/THROAT: No recent hearing change, congestion, nasal discharge or sore throat. EYES: No pain in eyes, discharge or change in vision. GASTROINTESTINAL: As per HPI. Past Medical History Past Medical History: Blood Disorder, Deep Vein Thrombosis (DVT), GERD/Reflux, Hyperlipidemia, Hypertension, Mitral Valve Prolapse (MVP), Osteoarthritis (OA), Pulmonary Embolus (PE), Thyroid Disorder Additional Past Medical History / Comment(s): migraines, MVP with regurgitation, hx ulcer, hiatal hernia, Factor V Leiden, varicose veinstakes coumadin at home History of Any Multi-Drug Resistant Organisms: None Reported Past Surgical History: Bariatric Surgery, Bowel Resection, Cholecystectomy, Hernia Repair, Orthopedic Surgery Additional Past Surgical History / Comment(s): GASTRIC SLEEVE,ORIF RT AN KLE,"bowel release x 2",rt cataract, vena cava filter Past Anesthesia/Blood Transfusion Reactions: Postoperative Nausea & Vomiting (PONV) Additional Past Anesthesia/Blood Transfusion Reaction / Comm: post op migraine for 5 days Past Psychological History: No Psychological Hx Reported Smoking Status: Former smoker Past Alcohol Use History: None Reported Past Drug Use History: None Reported - Past Family History Father Family Medical History: Cancer Mother Family Medical History: Cancer Medications and Allergies Home Medications Medication Instructions Recorded Confirmed Type Losartan/Hydrochlorothiazide 1 tab PO HS 12/22/14 07/13/20 History [Losartan-Hctz 100-25 mg Tab] Atorvastatin [Lipitor] 40 mg PO HS 06/21/15 07/13/20 History Warfarin Sodium [Coumadin] 6 mg PO DAILY 06/21/15 07/13/20 History Warfarin [Coumadin] 1 mg PO SUMOWETHSA 06/21/15 07/13/20 History Furosemide [Lasix] 20 mg PO DAILY 11/01/19 07/13/20 History Levothyroxine Sodium [Synthroid] 137 mcg PO DAILY 11/01/19 07/13/20 History rOPINIRole HCL 3 mg PO TID PRN 11/01/19 07/13/20 History Ferrous Sulfate [Feosol] 325 mg PO BID #60 tab 04/09/20 07/13/20 Rx Omeprazole 20 mg PO DAILY 07/13/20 07/13/20 History Allergies Allergy/AdvReac Type Severity Reaction Status Date / Time codeine Allergy Swelling,mi Verified 07/13/20 15:47 graine morphine Allergy Swelling,mi Verified 07/13/20 15:47 graine nifedipine [From Procardia] Allergy Swelling,mi Verified 07/13/20 15:47 graine Physical Exam Vitals: Vital Signs Temp Pulse Pulse Resp BP BP Pulse Ox 07/14/20 08:00 98.1 F 59 L 18 111/53 97 07/14/20 06:25 58 L 18 103/54 99 07/14/20 04:00 97.6 F 63 18 95/53 96 07/14/20 00:00 98.1 F 61 18 111/57 97 07/13/20 23:00 98.1 F 61 16 111/57 97 07/13/20 21:32 98.1 F 73 16 120/58 96 07/13/20 21:01 98.5 F 68 16 114/58 94 L 07/13/20 20:49 98.1 F 72 16 121/59 97 07/13/20 20:43 98.3 F 70 16 121/58 07/13/20 20:00 98.1 F 72 72 16 121/59 121/59 97 07/13/20 18:45 97.7 F 68 18 118/56 97 07/13/20 18:20 97.9 F 74 18 129/63 97 07/13/20 18:15 97.9 F 70 18 127/67 07/13/20 18:06 97.9 F 68 18 121/66 98 07/13/20 16:40 97.9 F 73 18 140/69 07/13/20 16:10 97.9 F 73 18 124/64 95 07/13/20 16:00 98 F 73 16 131/69 99 07/13/20 15:05 64 18 128/71 98 07/13/20 15:00 18 07/13/20 13:59 98.0 F 77 18 120/71 97 Intake and Output 07/13/20 07/14/20 07/14/20 22:59 06:59 14:59 Intake Total 930 Balance 930 Intake: Blood Product 930 As-1 Unit 310 [id number] As-1 Unit 310 [id number] As-1 Unit 310 [id number] Other: # Voids 1 Weight 110.677 kg 116.5 kg On physical examination, patient appears comfortable in no apparent distress. HEAD: Normocephalic, atraumatic. EYES: No scleral icterus. No conjunctival injection. MOUTH: No lesions, tongue midline. NECK: Trachea midline, no gross abnormalities. CHEST: Clear to auscultation with no wheezing or rhonchi appreciated. HEART: s1-S2 appreciated. ABDOMEN: Soft, obese. Bowel sounds are positive. No organomegaly. No guarding or rigidity. EXTREMITIES: No pedal edema. SKIN: No rashes, no jaundice. NEUROLOGIC: Alert and oriented x3. No focal deficits. Results CBC & Chem 7: 07/14/20 07:49 07/14/20 07:49 Labs: Abnormal Lab Results - Last 24 Hours (Table) 07/13/20 07/13/20 07/13/20 Range/Units 14:54 14:54 14:54 RBC 2.08 L (3.80-5.40) m/uL Hgb 4.5 L* (11.4-16.0) gm/dL Hct 15.9 L* (34.0-46.0) % MCV 76.4 L (80.0-100.0) fL MCH 21.8 L (25.0-35.0) pg MCHC 28.5 L (31.0-37.0) g/dL RDW 17.8 H (11.5-15.5) % Lymphocytes # (1.0-4.8) k/uL PT 16.6 H (9.0-12.0) sec INR 1.7 H (<1.2) Sodium (137-145) mmol/L BUN (7-17) mg/dL Creatinine (0.52-1.04) mg/dL Total Protein (6.3-8.2) g/dL Stool Occult Blood Positive H (Negative) Crossmatch 07/13/20 07/13/20 07/14/20 Range/Units 14:54 14:54 07:49 RBC 2.89 L (3.80-5.40) m/uL Hgb 7.6 L D (11.4-16.0) gm/dL Hct 23.4 L (34.0-46.0) % MCV (80.0-100.0) fL MCH (25.0-35.0) pg MCHC (31.0-37.0) g/dL RDW 17.7 H (11.5-15.5) % Lymphocytes # 0.9 L (1.0-4.8) k/uL PT (9.0-12.0) sec INR (<1.2) Sodium 133 L (137-145) mmol/L BUN 31 H (7-17) mg/dL Creatinine 1.29 H (0.52-1.04) mg/dL Total Protein 6.0 L (6.3-8.2) g/dL Stool Occult Blood (Negative) Crossmatch See Detail 07/14/20 Range/Units 07:49 RBC (3.80-5.40) m/uL Hgb (11.4-16.0) gm/dL Hct (34.0-46.0) % MCV (80.0-100.0) fL MCH (25.0-35.0) pg MCHC (31.0-37.0) g/dL RDW (11.5-15.5) % Lymphocytes # (1.0-4.8) k/uL PT (9.0-12.0) sec INR (<1.2) Sodium 134 L (137-145) mmol/L BUN 23 H (7-17) mg/dL Creatinine 1.20 H (0.52-1.04) mg/dL Total Protein (6.3-8.2) g/dL Stool Occult Blood (Negative) Crossmatch Assessment and Plan (1) Iron deficiency anemia Narrative/Plan: 70-year-old female with multiple medical comorbidities including factor V Leiden disorder and prior thromboembolism currently on anticoagulation therapy with Coumadin who presented to the hospital due to severe symptomatic anemia. She is at hospitalizations in October and March of this year for similar complaints with EGD performed at that time significant forevidence of prior sleeve gastrectomy with active oozing of blood from gastric antral vascular ectasia treated with argon plasma coagulation therapy. She has remained on PPI therapy andoral iron but has had recurrent episodes of anemia and presents back with complaints of anemia, shortness of breath and weakness. Current Visit: No Status: Acute Priority: High Code(s): D50.9 - IRON DEFICIENCY ANEMIA, UNSPECIFIED SNOMED Code(s): 64228064 (2) Anemia associated with acute blood loss Current Visit: Yes Status: Acute Code(s): D62 - ACUTE POSTHEMORRHAGIC ANEMIA SNOMED Code(s): 889200666 (3) GI bleed Current Visit: Yes Status: Acute Code(s): K92.2 - GASTROINTESTINAL HEMORRHAGE, UNSPECIFIED SNOMED Code(s): 74366196 (4) Gastric antral vascular ectasia Current Visit: No Status: Acute Code(s): K31.819 - ANGIODYSPLASIA OF STOMACH AND DUODENUM WITHOUT BLEEDING SNOMED Code(s): 63900802 (5) Factor V Leiden Current Visit: No Status: Chronic Priority: Medium Code(s): D68.51 - ACTIVATED PROTEIN C RESISTANCE SNOMED Code(s): 335224334 Plan: supportive care Continue to monitor hemoglobin and hematocrit and transfuse as needed Okay for full liquid diet Nothing by mouth after midnight Continue Protonix twice a day IV iron therapy ordered Hematology service following the patient Plan for EGD tomorrow for further evaluation Thank you for allowing us to participate in the care of the patient
[2020-07-14] MEDS: TEMAZEPAM 15 MG CAP PO PRN (22:15)
[2020-07-14] MEDS: ATORVASTATIN 40 MG TAB PO SCH (22:16)
[2020-07-14] MEDS: LOSARTAN-HCTZ 50-12.5 MG 1 EACH TAB PO SCH (22:16)
[2020-07-15 07:06] LABS: Anisocytosis Slight; Basophils # (A) 0.1 k/uL (0-0.2); Basophils % (A) 1 %; Eosinophils # (A) 0.3 k/uL (0-0.7); Eosinophils % (A) 5 %; HCT 27.4 % (34.0-46.0); HGB 8.6 gm/dL (11.4-16.0); Hypochromasia Marked; Lymphocytes # (A) 1.2 k/uL (1.0-4.8); Lymphocytes % (A) 21 %; MCH 25.7 pg (25.0-35.0); MCHC 31.5 g/dL (31.0-37.0); MCV 81.5 fL (80.0-100.0); Mean Platelet Volume 7.9; Microcytosis Slight; Monocytes # (A) 0.4 k/uL (0-1.0); Monocytes % (A) 8 %; Neutrophils # (A) 3.4 k/uL (1.3-7.7); Neutrophils % (A) 63 %; Platelet Count 230 k/uL (150-450); Poikilocytosis Marked; RBC 3.37 m/uL (3.80-5.40); RDW 18.5 % (11.5-15.5); WBC 5.4 k/uL (3.8-10.6)
[2020-07-15 07:18] LABS: Calcium 9.1 mg/dL (8.4-10.2); Potassium 3.9 mmol/L (3.5-5.1)
[2020-07-15] MEDS: LEVOTHYROXINE 137 MCG TAB PO SCH (09:15)
[2020-07-15] MEDS: SODIUM FERRIC GLUCONAT-SUCROSE 125 MG in SODIUM CHLORIDE 0.9% 100 ML IVPB SCH (09:19)
[2020-07-15] MEDS: PANTOPRAZOLE 40 MG/10 ML VIAL IV SCH ×2 (09:20→22:22)
[2020-07-15] MEDS ORDERED: PROPOFOL 10 MG/ML 20 ML VIAL IV ONE (10:53)
--- NOTE | 2020-07-15 11:37 | P.PCN ---
Date of Procedure: 07/15/20 Description of Procedure: BRIEF HISTORY: 70-year-old female with multiple medical comorbidities including mitral valve prolapse, hyperlipidemia, hypertension, prior DVT/PE, affect 5 Leiden disorder, gastric antral vascular ectasia and GERD who presented to the hospital for evaluation of anemia. Patient had anemia found on Outpatient laboratory evaluation. She has had episodes of recurrent iron deficiency anemia and is on endoscopic evaluation during hospitalizations for anemia in 10/2019 with findings of prior sleeve gastrectomy, gastric antral vascular ectasia with active oozing treated with argon plasma coagulation therapy and duodenal biopsy and then again in 03/2020 with the same findings. She reports that bowel movements are dark at baseline due to her iron therapy and she has not seen any change in her bowel habits. She denies any abdominal pain and has been tolerating a diet. She does report weakness, fatigue and shortness of breath which is worse with exacerbation. The patient is on chronic anticoagulation therapy due to her factor V Leiden disorder, however in discussion with the hematology service recommendations at this time are likely to hold anticoagulation due to her recurrent episodes of anemia. Colonoscopy in 09/2018 significant polypectomy. PROCEDURE PERFORMED: Esophagogastroduodenoscopy with biopsy and argon plasma coagulation therapy/ERBE. PREOPERATIVE DIAGNOSIS: Iron deficiency anemia ESTIMATED BLOOD LOSS: Minimal. IV sedation per anesthesia. PROCEDURE: After informed consent was obtained, the patient was brought into the endoscopy unit. IV sedation was administered by Anesthesia under continuous monitoring. Initially the Olympus GIF-190 video endoscope was inserted into the mouth. Esophagus intubated without any difficulty. It was gradually advanced into the stomach and duodenum and carefully examined. The bulb and the second part of the duodenum appeared normal. The scope at this time was withdrawn to the stomach, adequately insufflated with air, and upon careful examination, mucosa of the antrum, body, cardia and the fundus appeared normal, with post surgical anatomy consistent with patient's history of sleeve gastrectomy. There is also focal areas of linear erythema in the antrum consistent with gastric antral vascular ectasia which was treated with argon plasma coagulation therapy. The scope was then withdrawn into the esophagus. The GE junction was located at 37 cm from the incisors. The esophagus appeared normal. There were no erosions or ulcerations seen and the patient tolerated the procedure well. IMPRESSION: 1. Gastric antral vascular ectasia treated with argon plasma coagulation therapy. 2. Prior sleeve gastrectomy. RECOMMENDATIONS: The findings of this examination were discussed with the patient. Okay soft diet. Continue IV iron therapy. Continue monitor hemoglobin and hematocrit. Hematology service following the patient. 70-year-old female with multiple medical comorbidities including mitral valve prolapse, hyperlipidemia, hypertension, prior DVT/PE, affect 5 Leiden disorder, gastric antral vascular ectasia and GERD who presented to the hospital for evaluation of anemia. Patient had anemia found on Outpatient laboratory evaluation. She has had episodes of recurrent iron deficiency anemia and is on endoscopic evaluation during hospitalizations for anemia in 10/2019 with findings of prior sleeve gastrectomy, gastric antral vascular ectasia with active oozing treated with argon plasma coagulation therapy and duodenal biopsy and then again in 03/2020 with the same findings. She reports that bowel movements are dark at baseline due to her iron therapy and she has not seen any change in her bowel habits. She denies any abdominal pain and has been tolerating a diet. She does report weakness, fatigue and shortness of breath which is worse with exacerbation. The patient is on chronic anticoagulation therapy due to her factor V Leiden disorder, however in discussion with the hematology service recommendations at this time are likely to hold anticoagulation due to her recurrent episodes of anemia. Colonoscopy in 09/2018 significant polypectomy.
[2020-07-15] MEDS: FUROSEMIDE 20 MG TAB PO SCH (12:40)
--- NOTE | 2020-07-15 16:47 | PN ---
PROGRESS NOTE DATE OF SERVICE: 07/15/2020 This 70-year-old woman who was admitted with recurrent GI bleed with acute blood loss anemia, had gastric antral vascular ectasia. The patient received transfusion. Hemoglobin is 8.6. Dr. Matson performed EGD with biopsy and argon plasma coagulation therapy for ERBE. The patient had prior sleeve gastrectomy. No chest pain. No palpitations. No fever. PHYSICAL EXAMINATION: Alert and oriented times three. Pulse 64. Blood pressure 117/77. Respirations 16, temperature 98.2, pulse ox 96% on room air. HEENT: Conjunctivae normal. NECK: No JVD. CARDIOVASCULAR: S1, S2 muffled. RESPIRATORY SYSTEM: Breath sounds diminished at the bases. No rhonchi. No crackles. ABDOMEN: Soft, nontender. No mass. LEGS: No edema. No swelling. NERVOUS SYSTEM: No focal deficits. LABS: WBC 5.2, hemoglobin is 8.6, sodium 135. ASSESSMENT: 1. Severe anemia possibly secondary to acute on chronic gastrointestinal bleed with acute blood loss anemia from gastric antral vascular ectasia status post blood transfusion. 2. Status post EGD and GAVE treated with argon plasma coagulation and biopsy. 3. History of sleeve gastrectomy. 4. History of previous EGD and argon plasma coagulation treatment. 5. Severe microcytic iron deficient anemia. 6. Increased creatinine with chronic kidney stage 3. 7. Coumadin coagulopathy. 8. History of deep vein thrombosis. 9. Hypertension. 10.Hyperlipidemia. 11.History of mitral valve prolapse. 12.History of degenerative joint disease. 13.History of pulmonary embolism. 14.History of hypothyroidism. 15.History of mitral prolapse with mitral regurgitation. 16.History of migraine. 17.History of factor 5 Leiden mutation. 18.History of varicose veins. 19.History of bariatric surgery. 20.History of bowel resection. 21.History of cholecystectomy. 22.History of gastric sleeve. 23.History of IVC filter. 24.History of ORIF of the ankle. 25.Remote history of nicotine dependence. 26.Obesity with body mass index of 44.6. 27.FULL CODE. RECOMMENDATIONS AND DISCUSSION: Recommend to continue current medication, continue symptomatic treatment. Otherwise, hold off the Coumadin at this time. Hemoglobin is rather stable. Argon plasma coagulation done by Dr. Matson. We will continue to monitor. Dr. Mendez has seen the patient and recommended IV iron and recommended no anticoagulation or antiplatelets for now. Follow up in the office in 5-6 weeks. If the hemoglobin shows sufficient improvement, Dr. Mendez recommend baby aspirin at that time with continued close monitoring. The patient had life-threatening GI bleed on multiple occasions. Once again, the prognosis is extremely guarded because of above-mentioned multiple medical issues and further recommendations to follow. CONNIE / YEVGENIYN: [id number] /
[2020-07-15] MEDS: SODIUM CHLORIDE 0.9% 1,000 ML IV SCH (16:51)
[2020-07-15] MEDS: TEMAZEPAM 15 MG CAP PO PRN (22:24)
[2020-07-15] MEDS: ALPRAZolam 0.25 MG TAB PO PRN (22:24)
[2020-07-15] MEDS: LOSARTAN-HCTZ 50-12.5 MG 1 EACH TAB PO SCH (22:25)
[2020-07-15] MEDS: ATORVASTATIN 40 MG TAB PO SCH (22:25)
[2020-07-16] MEDS: LEVOTHYROXINE 137 MCG TAB PO SCH (07:16)
[2020-07-16 08:21] LABS: Potassium 4.2 mmol/L (3.5-5.1)
[2020-07-16 08:22] LABS: Anisocytosis Slight; Basophils % (A) 1 %; Eosinophils # (A) 0.2 k/uL (0-0.7); Eosinophils % (A) 4 %; HCT 26.8 % (34.0-46.0); HGB 8.3 gm/dL (11.4-16.0); Hypochromasia Marked; Lymphocytes # (A) 1.4 k/uL (1.0-4.8); Lymphocytes % (A) 24 %; MCH 25.3 pg (25.0-35.0); MCHC 30.9 g/dL (31.0-37.0); MCV 81.9 fL (80.0-100.0); Mean Platelet Volume 8.3; Microcytosis Slight; Monocytes # (A) 0.5 k/uL (0-1.0); Monocytes % (A) 8 %; Neutrophils # (A) 3.6 k/uL (1.3-7.7); Neutrophils % (A) 60 %; Platelet Count 238 k/uL (150-450); Poikilocytosis Marked; RBC 3.27 m/uL (3.80-5.40); RDW 19.5 % (11.5-15.5); WBC 5.9 k/uL (3.8-10.6)
[2020-07-16] MEDS: FUROSEMIDE 20 MG TAB PO SCH (08:52)
[2020-07-16] MEDS: PANTOPRAZOLE 40 MG/10 ML VIAL IV SCH (08:52)
[2020-07-16 10:35] LABS: INR 1.3 (<1.2); Partial Thromboplastin Time 27.2 sec (22.0-30.0); Prothrombin Time 12.9 sec (9.0-12.0)
[2020-07-16 12:36] VITALS: BP 126/68; PULSE 78; RESP 16; TEMP 98.5
--- NOTE | 2020-07-16 15:46 | P.PN ---
Subjective Progress Note Date: 07/16/20 Principal diagnosis: Iron deficiency anemia, history of gastric antral vascular ectasia This 70-year-old female with a history of factor V Leiden disorder who has been on Coumadin therapy. She has a history of anemia and previous gastric vascular ectasia. He was sent in to the hospital with complaints of dark stools, but states she was on iron therapy and also a hemoglobin of 4.5. She is status post 3 units of packed red blood cells. He has been 3 doses of IV iron. She was seen and examined at the bedside. She underwent upper endoscopy yesterday revealed gastric antral vascular ectasia treated with argon plasma coagulation therapy, and he noted prior sleeve gastrectomy. She is denying any abdominal pain, nausea, or vomiting. She is tolerating a regular diet. She denies any black tarry stools. Objective - Vital Signs Vital signs: Vital Signs Temp 98.5 F 07/16/20 12:00 Pulse 78 07/16/20 12:00 Resp 16 07/16/20 12:00 BP 126/68 07/16/20 12:00 Pulse Ox 98 07/16/20 12:00 Intake & Output 07/15/20 07/16/20 07/16/20 18:59 06:59 18:59 Intake Total 240 660 Output Total 550 460 Balance -310 -460 660 Weight 107.1 kg Intake: Oral 240 660 Output: Urine 550 460 Other: # Voids 2 1 - Exam General appearance: The patient is alert, oriented, in no acute distress. HET: Head is normocephalic and atraumatic. Conjunctiva pink. Sclera anicteric. Neck: Supple without lymphadenopathy. Abdomen: Soft, nontender, nondistended with bowel sounds. No guarding or rigidity. Extremities: Normal skin color and turgor. No pedal edema Neurological: No focal deficits. Alert and oriented 3. - Labs CBC & Chem 7: 07/16/20 07:18 07/16/20 07:18 Labs: Abnormal Lab Results - Last 24 Hours (Table) 07/16/20 07/16/20 07/16/20 Range/Units 07:18 07:18 09:37 RBC 3.27 L (3.80-5.40) m/uL Hgb 8.3 L (11.4-16.0) gm/dL Hct 26.8 L (34.0-46.0) % MCHC 30.9 L (31.0-37.0) g/dL RDW 19.5 H (11.5-15.5) % PT 12.9 H (9.0-12.0) sec INR 1.3 H (<1.2) Sodium 135 L (137-145) mmol/L BUN 21 H (7-17) mg/dL Creatinine 1.34 H (0.52-1.04) mg/dL Assessment and Plan (1) Anemia associated with acute blood loss Narrative/Plan: This is a 70-year-old female with multiple medical comorbidities including factor V Leiden disorder and prior thromboembolism currently on anticoagulation therapy with Coumadin who presented to the hospital due to severe symptomatic anemia. She is at hospitalizations in October and March of this year for similar complaints with EGD performed at that time significant forevidence of prior sleeve gastrectomy with active oozing of blood from gastric antral vascular ectasia treated with argon plasma coagulation therapy. She has remained on PPI therapy andoral iron but has had recurrent episodes of anemia and presents back with complaints of anemia, shortness of breath and weakness. She is status post upper endoscopy yesterday revealing [place] antral vascular ectasia with argon plasma coagulation therapy. Hemoglobin today is stable at 8.3. She is status post 3 units packed red blood cells and 3 doses of IV iron. The impression and plan of care has been dictated as directed. Dr. Magda Martinez I performed a history and examination of this patient, discussed the same with the dictator. I agree with the dictator's note ,documented as a scribe. Any additional findings or plans will be noted. Status: Acute Code(s): D62 - ACUTE POSTHEMORRHAGIC ANEMIA SNOMED Code(s): 795574988 (2) GI bleed Status: Acute Code(s): K92.2 - GASTROINTESTINAL HEMORRHAGE, UNSPECIFIED SNOMED Code(s): 74096211 (3) Gastric antral vascular ectasia Status: Acute Code(s): K31.819 - ANGIODYSPLASIA OF STOMACH AND DUODENUM WITHOUT BLEEDING SNOMED Code(s): 47626440 (4) Iron deficiency anemia Status: Acute Priority: High Code(s): D50.9 - IRON DEFICIENCY ANEMIA, UNSPECIFIED SNOMED Code(s): 58204329 (5) Factor V Leiden Status: Chronic Priority: Medium Code(s): D68.51 - ACTIVATED PROTEIN C RESISTANCE SNOMED Code(s): 626500736 Plan: supportive care Patient is status post upper endoscopy Continue to monitor hemoglobin and hematocrit and transfuse as needed Regular diet Continue Protonix twice a day IV iron therapy ordered Hematology service following the patient, they will hold off on Coumadin therapy The patient may be discharged home from a gastroenterology standpoint, patient has appointment with Dr. Matson scheduled for August 02. Thank you for allowing us to participate in the care of the patient
[2020-07-16 18:51] LABS: Protein, Total 5.7 g/dL (6.2-8.2)
--- NOTE | 2020-07-17 06:25 | P.DS ---
Providers Date of admission: 07/13/20 16:22 Attending physician: Hillary Álvarez Consults: 07/13/20 16:52 Consult Physician Routine Consulting Provider: Mick Matson Consult Reason/Comments: GI bleed Do you want consulting provider notified?: Yes 07/13/20 20:36 Consult Physician Routine Consulting Provider: Jack Mendez Consult Reason/Comments: anemia Do you want consulting provider notified?: Yes Primary care physician: Freeman Moran [facility] Course: Diagnoses: Acute and chronic GI bleed status post EGD showed gastric antral ectasia status post biopsy and argon plasma coagulation Acute blood loss anemia Chronic kidney disease stage III Factor V Leiden disorder was on Coumadin on presentation. Currently on hold Diabetes mellitus Hyperlipidemia Hypertension COPD, acute exacerbation History of coronary artery disease status post stent placement Anxiety, depression, bipolar. Not an active issue Nicotine dependence Hospital course: This is a pleasant 66 years old female with multiple medical problems as below. Presents with GI bleed. EGD showing gastric antral ectasia, she underwent biopsy and argon plasma coagulation by GI team. Postoperatively hemoglobin is stable and today is 10.7. Patient denies chest pain or abdominal pain or nausea vomiting or dyspnea. No change in urine or bowel habits. No fever. No other complaints Patient is followed up by hematology team and Dr. Mendez recommended to hold Coumadin now and to continue with aspirin, and to follow up with his office in 4-6 weeks for reevaluation. Patient informed with this plan and she agrees. Patient has been asking to be discharged today Patient is cleared for discharge by all consultants including gastroenterology and hematology team's . Hematology team recommended to hold Coumadin and aspirin upon discharge, patient informed and she agrees, she was informed that she'll be at risk of thrombosis lites including but not limited to stroke, myocardial infarction, or thromboses anywhere and she agrees with this plan Problems and management plan were discussed with the patient and he verbalized understanding and acceptance Patient was found stable and can be discharged home however he needs follow-up as an outpatient. Patient was instructed to follow up with PCP Dr. Moran within one week and patient agrees. Also patient was instructed to follow up with GI service Dr. Armas in 1-[address] Mendez in 1-2 weeks and she agrees. Also patient agrees with the appointments made for her Dr. Mendez on 08/01, Dr. Moran on 07/[address] schaefer on 08/02 and physical exam Gen.: Patient alert awake and oriented X 3, NOT IN DISTRESS CVS: s1-s2, RRR, no murmur CHEST:bilateral CTA, no wheezing or crepitation Abdomen: Soft, no tenderness, no distention, positive bowel sounds Extremities: No leg edema or induration Time spent more than 35 minutes Health Concerns: No Blood thinners including aspirin. No aspirin. Patient Condition at Discharge: Serious Plan - Discharge Summary Discharge Rx Participant: No New Discharge Prescriptions: Continue Losartan/Hydrochlorothiazide [Losartan-Hctz 100-25 mg Tab] 1 tab PO HS Atorvastatin [Lipitor] 40 mg PO HS Levothyroxine Sodium [Synthroid] 137 mcg PO DAILY Furosemide [Lasix] 20 mg PO DAILY rOPINIRole HCL 3 mg PO TID PRN PRN Reason: restless legs Ferrous Sulfate [Feosol] 325 mg PO BID #60 tab Omeprazole 20 mg PO DAILY Discontinued Warfarin [Coumadin] 1 mg PO SUMOWETHSA Warfarin Sodium [Coumadin] 6 mg PO DAILY Discharge Medication List Losartan/Hydrochlorothiazide [Losartan-Hctz 100-25 mg Tab] 1 tab PO HS 12/22/14 [History] Atorvastatin [Lipitor] 40 mg PO HS 06/21/15 [History] Furosemide [Lasix] 20 mg PO DAILY 11/01/19 [History] Levothyroxine Sodium [Synthroid] 137 mcg PO DAILY 11/01/19 [History] rOPINIRole HCL 3 mg PO TID PRN 11/01/19 [History] Ferrous Sulfate [Feosol] 325 mg PO BID #60 tab 04/09/20 [Rx] Omeprazole 20 mg PO DAILY 07/13/20 [History] Follow up Appointment(s)/Referral(s): Jack Mendez MD [STAFF PHYSICIAN] - 08/01/20 3:45 pm Freeman Moran DO [Primary Care Provider] - 07/18/20 10:20 am (With Kathrin.) Mick Matson MD [STAFF PHYSICIAN] - 08/02/20 11:00 am (follow up with your appointment on 08/02/20 at 11 am as you told the medical team ) Patient Instructions/Handouts: Gastrointestinal Bleeding (DC), GI (Gastrointestinal) Soft Diet (DC) Activity/Diet/Wound Care/Special Instructions: GI BLEED 1. Take all new medication as directed. 2. Avoid foods that can be irritating to your intestines (See dietary teaching). 3. Avoid motrin (ibuprofen) and aleve (naproxen). These medications can increase your risk of internal bleeding. Tylenol (acetaminophen) is safe to take as long as you do not have any liver disease. 4. Avoid drinking alcohol and smoking, these can also irritate your intestines and increase risk of internal bleeding. 5. Increase activity gradually, do not overexert yourself. Your blood count is lower and your body will need time to recover. heart healthy diet activity is limited till you see your doctor Discharge Disposition: HOME SELF-CARE
[2020-07-17 11:08] LABS: Free Kappa Lt Chain Qnt, Serum 3.15 mg/dL (0.33-1.94)
[2020-07-17 13:42] LABS: Albumin 3.12 g/dL (3.80-4.90); Gamma Globulin 0.57 g/dL (0.70-1.50)
== END 2020-07-16 15:26 | disposition home or self-care (01) | DRG 378 ==
LOC: EC 13:30 → 3SCARD 16:22
PROVIDERS: ADMIT Hospitalist; ATTEND Hospitalist
PROC: 30233N1 Transfusion of Nonautologous Red Blood Cells into Peripheral Vein, Percutaneous Approach (ICD-10-PCS; 2020-07-13)
PROC: 0W3P8ZZ Control Bleeding in Gastrointestinal Tract, Via Natural or Artificial Opening Endoscopic (ICD-10-PCS; principal; 2020-07-15 11:00)
DX: K31.811 Angiodysplasia of stomach and duodenum with bleeding (principal); D68.51 Activated protein C resistance; D62 Acute posthemorrhagic anemia; Z68.41 Body mass index [BMI] 40.0-44.9, adult; J44.1 Chronic obstructive pulmonary disease with (acute) exacerbation; E11.22 Type 2 diabetes mellitus with diabetic chronic kidney disease; D50.9 Iron deficiency anemia, unspecified; N18.30 Chronic kidney disease, stage 3 unspecified; E03.9 Hypothyroidism, unspecified; E66.9 Obesity, unspecified; I12.9 Hypertensive chronic kidney disease with stage 1 through stage 4 chronic kidney disease, or unspecified chronic kidney disease; K21.9 Gastro-esophageal reflux disease without esophagitis; I25.10 Atherosclerotic heart disease of native coronary artery without angina pectoris; I34.0 Nonrheumatic mitral (valve) insufficiency; I34.1 Nonrheumatic mitral (valve) prolapse; K44.9 Diaphragmatic hernia without obstruction or gangrene; E78.5 Hyperlipidemia, unspecified; T45.515A Adverse effect of anticoagulants, initial encounter; I83.90 Asymptomatic varicose veins of unspecified lower extremity; M19.90 Unspecified osteoarthritis, unspecified site; Z86.711 Personal history of pulmonary embolism; Z79.890 Hormone replacement therapy; Z79.01 Long term (current) use of anticoagulants; Z79.899 Other long term (current) drug therapy; Z87.891 Personal history of nicotine dependence; Z86.718 Personal history of other venous thrombosis and embolism; Z98.84 Bariatric surgery status; Z95.828 Presence of other vascular implants and grafts; Z87.19 Personal history of other diseases of the digestive system; Z90.49 Acquired absence of other specified parts of digestive tract; Z98.41 Cataract extraction status, right eye; Z87.39 Personal history of other diseases of the musculoskeletal system and connective tissue; Z86.69 Personal history of other diseases of the nervous system and sense organs; Z95.5 Presence of coronary angioplasty implant and graft; Z86.59 Personal history of other mental and behavioral disorders; Z98.890 Other specified postprocedural states; Z88.5 Allergy status to narcotic agent; Z88.8 Allergy status to other drugs, medicaments and biological substances; Z80.9 Family history of malignant neoplasm, unspecified
CPT/HCPCS: 36415; 36430; 43270; 80048; 80053; 82272; 82607; 83883; 83921; 84165; 85025; 85610; 85730; 86334; 86850; 86900; 86901; 86920; 93005; 96374; 99285

== ENCOUNTER 2020-08-20 09:02 | Day surgery (SDC) | payer MEDICARE, OTHER ==
[2020-08-13 11:10] VITALS: BMI 45.5
[~2020-08-20 09:02] MED LIST: LACTATED RINGERS 1,000 ML IV SCH
[2020-08-20 09:16] VITALS: TEMP 98.2
[2020-08-20] MEDS ORDERED: LIDOCAINE 1% (10MG/ML) FOR IV START INTRADERMA ONE (09:23)
[2020-08-20] MEDS ORDERED: LIDOCAINE 1% INJ 10MG/ML (20 ML MDV) ONE (09:39)
[2020-08-20] MEDS ORDERED: PROPOFOL 10 MG/ML 20 ML VIAL IV ONE (09:39)
--- NOTE | 2020-08-20 10:10 | P.PCN ---
Date of Procedure: 08/20/20 Description of Procedure: BRIEF HISTORY: 70-year-old female with multiple medical comorbidities including mitral valve prolapse, hyperlipidemia, hypertension, prior DVT/PE, affect 5 Leiden disorder, gastric antral vascular ectasia and GERD who presents for outpatient EGD for evaluation of vascular ectasia. Patient has had multiple hospitalizations for anemia past. She has undergone upper endoscopy with treatment of gastric antral vascular ectasias with argon plasma coagulation therapy of multiple occasions. Anticoagulation therapy has stopped. PROCEDURE PERFORMED: Esophagogastroduodenoscopy with biopsy and argon plasma coagulation therapy/ERBE. PREOPERATIVE DIAGNOSIS: Vascular ectasia, iron deficiency anemia. ESTIMATED BLOOD LOSS: Minimal. IV sedation per anesthesia. PROCEDURE: After informed consent was obtained, the patient was brought into the endoscopy unit. IV sedation was administered by Anesthesia under continuous monitoring. Initially the Olympus GIF-190 video endoscope was inserted into the mouth. Esophagus intubated without any difficulty. It was gradually advanced into the stomach and duodenum and carefully examined. The bulb and the second part of the duodenum appeared normal. The scope at this time was withdrawn to the stomach, adequately insufflated with air, and upon careful examination, mucosa of the antrum, body, cardia and the fundus appeared normal, with post surgical anatomy consistent with patient's history of sleeve gastrectomy. There is also focal areas of linear erythema in the antrum consistent with gastric antral vascular ectasia which was treated with argon plasma coagulation therapy. The scope was then withdrawn into the esophagus. The GE junction was located at 37 cm from the incisors. The esophagus appeared normal. There were no erosions or ulcerations seen and the patient tolerated the procedure well. IMPRESSION: 1. Gastric antral vascular ectasia treated with argon plasma coagulation therapy. 2. Prior sleeve gastrectomy. RECOMMENDATIONS: The findings of this examination were discussed with the patient. Okay soft diet, advance as tolerated. Continue IV iron therapy and follow up with the hematology service. Follow-up in the GI office as scheduled.
[2020-08-20 10:28] VITALS: BP 121/77; PULSE 63; RESP 18
--- NOTE | 2020-08-22 12:35 | CDI ---
Outpatient Documentation Clarification Form Date: 08/22/20 CDS/Resource Specialist Name: Radha Reid Phone: If any questions, call [facility] [employer] at [phone] Patient Name: Sonali Kirk Admit Date: 08/20/20 Discharge Date: 08/20/20 ATTENTION: The [facility] Coding Staff appreciate your assistance in clarifying documentation. Please respond to the clarification below the line at the bottom and electronically sign. The [facility] Coding staff will review the response and follow-up if needed. Please note: Queries are made part of the Legal Health Record. If you have any questions, please contact the [employer]. Dear Dr. Matson Please provide clarification as to if there was a biopsy performed with the EGD. On the procedure note under Procedure Performed the documentation reads Esophagogastroduodenoscopy with biopsy and argon plasma coagulation therapy/ERBE. There is no documentation in the body of the report to support a biopsy. Please clarify. Thank you for your kind consideration. no biopsy MTDD
== END 2020-08-20 10:52 | disposition home or self-care (01) ==
LOC: ORWHC2ENDO 09:02
PROVIDERS: ATTEND Internal Medicine
DX: K31.819 Angiodysplasia of stomach and duodenum without bleeding (principal); D50.9 Iron deficiency anemia, unspecified; K21.9 Gastro-esophageal reflux disease without esophagitis; I10 Essential (primary) hypertension; D68.51 Activated protein C resistance; E78.5 Hyperlipidemia, unspecified; I34.1 Nonrheumatic mitral (valve) prolapse; J44.9 Chronic obstructive pulmonary disease, unspecified; Z87.891 Personal history of nicotine dependence; E07.9 Disorder of thyroid, unspecified; G43.909 Migraine, unspecified, not intractable, without status migrainosus; M19.90 Unspecified osteoarthritis, unspecified site; Z90.49 Acquired absence of other specified parts of digestive tract; Z86.718 Personal history of other venous thrombosis and embolism; Z86.711 Personal history of pulmonary embolism; Z98.890 Other specified postprocedural states; Z98.42 Cataract extraction status, left eye; Z98.41 Cataract extraction status, right eye; Z98.84 Bariatric surgery status; Z79.890 Hormone replacement therapy; Z79.899 Other long term (current) drug therapy; Z88.5 Allergy status to narcotic agent; Z88.8 Allergy status to other drugs, medicaments and biological substances
CPT/HCPCS: 43270; J2001; J2704

== ENCOUNTER → 2020-12-07 | Outpatient (CLI) | payer MEDICARE, OTHER ==
--- NOTE | 2020-12-07 11:15 | XR ---
EXAMINATION TYPE: XR knee complete RT DATE OF EXAM: 12/07/2020 COMPARISON: NONE HISTORY: Pain TECHNIQUE: Three views are submitted. FINDINGS: Joint spaces are preserved. Osseous structures are intact. No acute fracture seen. Hypertrophic sp urs are seen involving the patella. There is a moderate-sized bursal fluid collection. There is diffu se osteopenia. IMPRESSION: 1. No acute fracture or dislocation. 2. Hypertrophic arthropathy. Moderate-sized suprapatellar bursal fluid collection. Correlate clinical ly.
== END ==
LOC: RADXRYALE 10:17
PROVIDERS: ATTEND Physician Assistant Medical
DX: M17.11 Unilateral primary osteoarthritis, right knee (principal); M70.51 Other bursitis of knee, right knee

== ENCOUNTER → 2021-01-18 | Outpatient (CLI) | payer MEDICARE, OTHER ==
--- NOTE | 2021-01-18 10:14 | MR ---
EXAMINATION TYPE: MR knee RT wo con DATE OF EXAM: 01/18/2021 COMPARISON: Right knee x-ray February 06, 2021 HISTORY: Pain R knee after strain injury 7 weeks ago TECHNIQUE: Multiplanar, multisequence imaging of the right knee is performed without IV contrast. FINDINGS: MEDIAL MENISCUS: Triangular and irregular signal posterior horn medial meniscus extends to inferior a rticular surface. LATERAL MENISCUS: Irregular and globular signal anterior horn lateral meniscus extends to articular s urface. Adjacent 5 to 6 mm paraMeniscal cyst noted on sagittal image 19. There is more faint globular signal posterior horn. Truncated of a appearance posterior surface with suggestion of full-thickness tear. CRUCIATE LIGAMENTS: The posterior cruciate ligament is intact and unremarkable. Anterior cruciate lig ament show significant tearing mid to distal substance with lack of visualized normal low signal fibe rs in the intercondylar notch COLLATERAL LIGAMENTS: The medial collateral ligament and lateral collateral ligament complex are inta ct and unremarkable. EXTENSOR MECHANISM: Visualized quadriceps and patellar tendons are intact. EFFUSION: Moderate to large size suprapatellar joint effusion. POPLITEAL CYST: Small size popliteal/rodriguez cyst sagittal image 11. Some inferior fluid extension or leak noted. TRICOMPARTMENT SPACES: Moderate narrowing patellofemoral compartment. [id number] narrowing and mild spurring lateral and medial tibiofemoral compartments. CARTILAGE: Chondromalacia patella with fissuring and cartilaginous loss along the posterior patellar pole this is greatest along the lateral aspect. Some fissuring and cartilaginous loss in the medial a nd lateral tibiofemoral compartments BONE MARROW SIGNAL: Heterogeneity consistent with red marrow conversion. No suspicious edema. OTHER: Some superficial infrapatellar fluid. Abnormal fluid in deep aspect of Hoffa's fat pad. Corre late clinically for Hoffa's fat pad impingement syndrome. IMPRESSION: 1. Full-thickness tear anterior horn of lateral meniscus. 2. At least intrasubstance but suspected full-thickness tear posterior horn lateral meniscus. 3. Full-thickness tear posterior horn medial meniscus. 4. Significant tear or tearing of the anterior cruciate ligament. 5. Moderate to large suprapatellar joint effusion. 6. Fairly moderate tricompartment degenerative changes as detailed above. 7. Small popliteal cyst.
== END | disposition home or self-care (01) ==
LOC: RADMRIMAIN 07:40
PROVIDERS: ATTEND Family Medicine
DX: S83.281A Other tear of lateral meniscus, current injury, right knee, initial encounter (principal); S83.241A Other tear of medial meniscus, current injury, right knee, initial encounter; M23.321 Other meniscus derangements, posterior horn of medial meniscus, right knee; M25.461 Effusion, right knee; M71.21 Synovial cyst of popliteal space [Baker], right knee

== ENCOUNTER 2022-06-07 14:47 | Inpatient (IN) | payer MEDICARE, OTHER ==
[2022-06-07 15:45] LABS: Basophils % (A) 1 %; Eosinophils # (A) 0.2 k/uL (0-0.7); Eosinophils % (A) 3 %; HGB 9.4 gm/dL (11.4-16.0); Lymphocytes # (A) 1.2 k/uL (1.0-4.8); Lymphocytes % (A) 23 %; MCHC 32.4 g/dL (31.0-37.0); MCV 89.7 fL (80.0-100.0); Mean Platelet Volume 8.2; Monocytes # (A) 0.3 k/uL (0-1.0); Monocytes % (A) 6 %; Neutrophils # (A) 3.2 k/uL (1.3-7.7); Neutrophils % (A) 64 %; Platelet Count 175 k/uL (150-450); RBC 3.23 m/uL (3.80-5.40); RDW 14.7 % (11.5-15.5); WBC 5.1 k/uL (3.8-10.6)
[2022-06-07 15:51] LABS: Albumin 3.9 g/dL (3.5-5.0); Calcium 9.6 mg/dL (8.4-10.2); Magnesium 2.1 mg/dL (1.6-2.3); Potassium 4.2 mmol/L (3.5-5.1); Total Bilirubin 0.2 mg/dL (0.2-1.3); Total Protein 5.9 g/dL (6.3-8.2)
--- NOTE | 2022-06-07 16:03 | ED ---
Chest Pain HPI - General Chief Complaint: Chest Pain Stated Complaint: Chest pain Time Seen by Provider: 06/07/22 15:12 Source: patient, RN notes reviewed Mode of arrival: ambulatory Limitations: no limitations - History of Present Illness Initial Comments: Patient is a pleasant 72-year-old female presents to the emergency room with complaints of chest pain which occurred twice today. She reports that she had chest pain earlier this morning in which she took a nitroglycerin and rest. She reports later in the afternoon the pain returned and she took nitroglycerin again with relieved of pain. The pain has not recurred yet today. She reports an episode of nausea earlier today with one of her bouts of chest pain but denies any nausea at this time as well. She states that she has not had a bowel movement in approximately 3 days in the typically she has bowel movements every day. She states her last bowel movement was black tarry and she has a known history of GI bleed. She denies any other associated symptoms with her chest pain that she had earlier including any shortness breath, orthopnea, diaphoresis, headache, or dizziness. As stated above she does not currently have any chest pain or nausea at this time. In addition to her history of CAD and GI bleed she has past medical history significant for hypertension, hyperlipidemia, COPD, PE/DVT with factor V deficiency, hypothyroidism and GERD. - Related Data Home Medications Medication Instructions Recorded Confirmed Losartan/Hydrochlorothiazide 1 tab PO HS 12/22/14 08/20/20 [Losartan-Hctz 100-25 mg Tab] rOPINIRole HCL [Requip] 3 mg PO TID PRN 11/01/19 08/20/20 Omeprazole 20 mg PO DAILY 07/13/20 08/20/20 Aspirin EC [Ecotrin Low Dose] 81 mg PO HS 06/07/22 06/07/22 Ergocalciferol [Vitamin D2 (1250 1,250 mcg PO Q28D 06/07/22 06/07/22 Mcg = 32350 Iu)] Levothyroxine Sodium [Synthroid] 125 mcg PO DAILY 06/07/22 06/07/22 Magnesium 200 mg PO DAILY 06/07/22 06/07/22 Nitroglycerin Sl Tabs [Nitrostat] 0.4 mg SL Q5M PRN 06/07/22 06/07/22 Potassium Chloride ER [K-Dur 10] 10 meq PO DAILY 06/07/22 06/07/22 Rosuvastatin Calcium [Crestor] 40 mg PO HS 06/07/22 06/07/22 Allergies Allergy/AdvReac Type Severity Reaction Status Date / Time codeine Allergy Swelling,mi Verified 06/07/22 21:25 graine morphine Allergy Swelling,mi Verified 06/07/22 21:25 graine nifedipine [From Procardia] Allergy Anaphylaxis Verified 06/07/22 21:25 Review of Systems ROS Statement: Those systems with pertinent positive or pertinent negative responses have been documented in the HPI. ROS Other: All systems not noted in ROS Statement are negative. EKG Findings - EKG Comments: EKG Findings:: Sinus rhythm, incomplete right bundle branch block, possible inferior myocardial infarction probably old, ventricular rate 60 bpm, WI interval 145 ms, QRS duration 113 ms, QT/QTC 415/170 ms, WI T axes 39, 25, 8 Past Medical History Past Medical History: Blood Disorder, COPD, Deep Vein Thrombosis (DVT), GERD/Reflux, Hyperlipidemia, Hypertension, Mitral Valve Prolapse (MVP), Osteoarthritis (OA), Pulmonary Embolus (PE), Thyroid Disorder Additional Past Medical History / Comment(s): States "have stomach bleed, low hemoglobin since Oct 2019." Migraines, MVP with regurgitation, hx ulcer, hiatal hernia, Factor V Leiden, varicose veins. History of Any Multi-Drug Resistant Organisms: None Reported Past Surgical History: Bariatric Surgery, Bowel Resection, Cholecystectomy, Hernia Repair, Orthopedic Surgery Additional Past Surgical History / Comment(s): GASTRIC SLEEVE, RT ANKLE SURGERY, "bowel release x 2", bilateral cataracts removed, vena cava filter. Past Anesthesia/Blood Transfusion Reactions: Postoperative Nausea & Vomiting (PONV) Additional Past Anesthesia/Blood Transfusion Reaction / Comment(s): Gets post op migraine for 5 days with each procedure. Past Psychological History: No Psychological Hx Reported Smoking Status: Former smoker Past Alcohol Use History: None Reported Past Drug Use History: None Reported - Past Family History Father Family Medical History: Cancer Mother Family Medical History: Cancer General Exam Limitations: no limitations General appearance: alert Head exam: Present: atraumatic, normocephalic, normal inspection Eye exam: Present: normal appearance, PERRL, EOMI. Absent: scleral icterus, conjunctival injection, periorbital swelling ENT exam: Present: normal exam, mucous membranes moist Neck exam: Present: normal inspection. Absent: lymphadenopathy Respiratory exam: Present: normal lung sounds bilaterally. Absent: respiratory distress, wheezes, rales, rhonchi, stridor Cardiovascular Exam: Present: regular rate, normal rhythm, normal heart sounds, systolic murmur. Absent: diastolic murmur, rubs, gallop, clicks GI/Abdominal exam: Present: soft, normal bowel sounds. Absent: distended, tenderness, guarding, rebound, rigid Rectal exam: Present: deferred Extremities exam: Present: full ROM, pedal edema (Bilateral trace) Back exam: Present: normal inspection Neurological exam: Present: alert, oriented X3, CN II-XII intact Psychiatric exam: Present: normal affect, normal mood Skin exam: Present: warm, dry, intact, normal color. Absent: rash Course Vital Signs 06/07/22 06/07/22 06/07/22 14:51 16:00 16:14 Temperature 97.6 F Pulse Rate 66 64 Pulse Rate [ 62 [employer] ] Respiratory 18 17 Rate Blood Pressure 135/71 130/68 O2 Sat by Pulse 100 99 Oximetry 06/07/22 06/07/22 18:00 20:30 Temperature 97.8 F 97.6 F Pulse Rate 62 68 Pulse Rate [ [employer] ] Respiratory 18 20 Rate Blood Pressure 136/70 128/78 O2 Sat by Pulse 99 98 Oximetry Chest Pain MDM - MDM 72-year-old female presenting to the emergency room with complaints of chest pain that was relieved with nitroglycerin and rest earlier today. None at this time. Also episode of black tarry stool earlier in the week no recent bowel movement. No current nausea. The setting of chest pain relieved with nitroglycerin and rest workup for ACS with checking CBC, CMP, troponins, magnesi um, TSH, coags along with EKG and chest x-ray. Will order stool for occult blood but deferred digital rectal exam at this time pending hemoglobin resolved. Due to previous DVT and PE history will also check d-dimer. No chest pain at this time we'll hold nitroglycerin and monitor. EKG shows sinus rhythm with incomplete right bundle branch block and possible inferior infarct probably old. Hemoglobin low however near baseline, CBC stable. Troponin negative. Magnesium normal. Slightly elevated BUN and creatinine near baseline. TSH low normal free T4. El evated d-dimer will check CTA chest due to history of pulmonary emboli. CT chest negative for PE. Still remains chest pain-free however due to earlier chest pain with activity relieved by nitro discussed observation stay for further monitoring. Patient agreeable for continued observation. Dr. Forrest with [facility] contacted regarding patient and accepting of observation admission. Case discussed with Dr. Alvarez. Disposition Clinical Impression: Chest pain Disposition: ADMITTED IP TO THIS HOSP Condition: Stable Is patient prescribed a controlled substance at d/c from ED?: No Referrals: Freeman Moran DO [Primary Care Provider] - 1-2 days Time of Disposition: 21:10
--- NOTE | 2022-06-07 16:08 | XR ---
EXAMINATION TYPE: XR chest 2V DATE OF EXAM: 06/07/2022 COMPARISON: NONE HISTORY: 11/01/2019 TECHNIQUE: 2 views FINDINGS: There is no heart failure nor confluent pneumonic infiltrate. Heart is top normal in size. Thoracic aorta is atheromatous. There are no hilar masses. IMPRESSION: No active cardiopulmonary disease. No change.
[2022-06-07 16:46] LABS: INR 0.9 (<1.2)
[2022-06-07 17:45] LABS: Partial Thromboplastin Time 19.8 sec (22.0-30.0)
[2022-06-07 18:34] LABS: T4, Free (Free Thyroxine) 1.77 ng/dL (0.78-2.19)
--- NOTE | 2022-06-07 19:13 | CT ---
EXAMINATION TYPE: CT chest angio for PE DATE OF EXAM: 06/07/2022 COMPARISON: None HISTORY: elevated d-dimer CT DLP: 440.3 mGycm Automated exposure control for dose reduction was used. CONTRAST: Performed with IV Contrast, patient injected with 80 mL of Isovue 370. Images obtained from the vasculature to the diaphragm with the IV contrast. There are Three-D postpro cessed images. There is mild subsegmental atelectasis at the lung bases. Heart is enlarged. No pericardial effusion. No pleural effusion. There are no hilar masses. There is no mediastinal adenopathy. There is 4.2 cm aneurysm of the ascending aorta. No dissection. No evidence of filling defect in the pulmonary arteries. The thoracic spine is intact. No compression fracture. There is multilevel hypertrophic spurring in t he thoracic spine. Sternum is intact. Upper abdominal soft tissues are intact. IMPRESSION: No evidence of pulmonary embolism. Subsegmental atelectasis and scarring at the lung bases. Cardiomegaly. Mild aneurysm of the ascending aorta.
[2022-06-07] MEDS ORDERED: NALOXONE 0.4 MG/ML 1 ML VIAL IV PRN (20:59)
--- NOTE | 2022-06-08 02:44 | P.HPIM ---
History of Present Illness H&P Date: 06/07/22 Chief Complaint: Chest pain 72-year-old female with peripheral arterial disease status post iliac stents, hypothyroid, coronary artery disease, hypertension, factor V Leiden with venous thromboembolism Patient comes in due to 2 episodes of chest pain that started today. She woke up with some chest pain that was resolved with nitro lasted for about 1 hour. Patient then went about her day doing some chores then suddenly had another episode of chest pain she is describing these episodes of retrosternal chest pressure 8 out of 10 in severity associated with feeling dizzy and nauseated denies any vomiting denies any difficulty breathing denies any palpitations or profuse sweating. She reports that the pain is not radiating it stays in the retrosternal area. O2 episodes responded to nitro for which she decided to come and hospital for evaluation. She reports that the pain is not similar to her episodes of GERD. Otherwise she reports that she seen her shop fitter about 2 weeks ago when he told her everything looked fine and scheduled regular follow- up. Otherwise denies any recent illness denies any upper respiratory infection symptoms denies any fevers chills abdominal pain changes in bowel or urinary habits. She also adds having episodes of melena which been going on for over a month now off-and-on. Workup in the ED showed stable hemoglobin of 9.4, stable: Chronic Kidney disease EKG showed no acute ST changes Chest x-ray no acute pathology Troponins negative Patient d-dimer was elevated, CT angios the chest showed no acute PE Patient reports history of factor V [place] with history of venous thromboembolic some however she is currently not on blood thinners due to history of GI bleeding. She denies any tobacco smoking illicit drugs or alcohol Review of Systems Pertinent positives as noted in HPI. All other systems were reviewed and are negative Past Medical History Past Medical History: Blood Disorder, COPD, Deep Vein Thrombosis (DVT), GERD/Reflux, Hyperlipidemia, Hypertension, Mitral Valve Prolapse (MVP), Osteoarthritis (OA), Pulmonary Embolus (PE), Thyroid Disorder Additional Past Medical History / Comment(s): States "have stomach bleed, low hemoglobin since Oct 2019." Migraines, MVP with regurgitation, hx ulcer, hiatal hernia, Factor V Leiden, varicose veins. History of Any Multi-Drug Resistant Organisms: None Reported Past Surgical History: Bariatric Surgery, Bowel Resection, Cholecystectomy, Hernia Repair, Orthopedic Surgery Additional Past Surgical History / Comment(s): GASTRIC SLEEVE, RT ANKLE SURGERY, "bowel release x 2", bilateral cataracts removed, vena cava filter. Past Anesthesia/Blood Transfusion Reactions: Postoperative Nausea & Vomiting (PONV) Additional Past Anesthesia/Blood Transfusion Reaction / Comment(s): Gets post op migraine for 5 days with each procedure. Past Psychological History: No Psychological Hx Reported Smoking Status: Former smoker Past Alcohol Use History: None Reported Past Drug Use History: None Reported - Past Family History Father Family Medical History: Cancer Mother Family Medical History: Cancer Medications and Allergies Home Medications Medication Instructions Recorded Confirmed Type Losartan/Hydrochlorothiazide 1 tab PO HS 12/22/14 06/07/22 History [Losartan-Hctz 100-25 mg Tab] rOPINIRole HCL [Requip] 3 - 9 mg PO HS PRN 11/01/19 06/07/22 History Omeprazole 20 mg PO DAILY 07/13/20 06/07/22 History Aspirin EC [Ecotrin Low Dose] 81 mg PO HS 06/07/22 06/07/22 History Ergocalciferol [Vitamin D2 (1250 1,250 mcg PO Q28D 06/07/22 06/07/22 History Mcg = 88969 Iu)] Levothyroxine Sodium [Synthroid] 125 mcg PO DAILY 06/07/22 06/07/22 History Magnesium 200 mg PO DAILY 06/07/22 06/07/22 History Nitroglycerin Sl Tabs [Nitrostat] 0.4 mg SL Q5M PRN 06/07/22 06/07/22 History Potassium Chloride ER [K-Dur 10] 10 meq PO DAILY 06/07/22 06/07/22 History Rosuvastatin Calcium [Crestor] 40 mg PO HS 06/07/22 06/07/22 History Allergies Allergy/AdvReac Type Severity Reaction Status Date / Time codeine Allergy Swelling,mi Verified 06/07/22 21:25 graine morphine Allergy Swelling,mi Verified 06/07/22 21:25 graine nifedipine [From Procardia] Allergy Anaphylaxis Verified 06/07/22 21:25 Physical Exam Vitals: Vital Signs Temp Pulse Pulse Resp BP Pulse Ox 06/07/22 18:00 97.8 F 62 18 136/70 99 06/07/22 16:14 62 06/07/22 16:00 64 17 130/68 99 06/07/22 14:51 97.6 F 66 18 135/71 100 Intake and Output 06/07/22 06/07/22 06/07/22 06:59 14:59 22:59 Other: Weight 90.718 kg Constitutional: No acute distress, conversant, pleasant Eyes: Anicteric sclerae, moist conjunctiva, Pupils equal round reactive to light ENMT: NC/AT Oropharynx clear, no erythema, or exudates Neck: Supple, no masses, or JVD No carotid bruits No thyromegaly Lungs: Clear to auscultation Clear to percussion Normal respiratory effort, no accessory muscle use Cardiovascular: Heart regular in rate and rhythm, No murmurs, gallops, or rubs No peripheral edema Abdominal: Soft Nontender, no guarding, rebound or rigidity Abdomen moving with respiration Normoactive bowel sounds No hepatomegaly, No splenomegaly No palpable mass No abdominal wall hernia noted Skin: Normal temperature, tone, texture, turgor No induration No subcutaneous nodules No rash, lesions No ulcers Extremities: No digital cyanosis No clubbing Pedal pulses intact and symmetrical Radial pulses intact and symmetrical No calf tenderness Psychiatric: Alert and oriented to person, place and time Appropriate affect fair judgement Neuro Muscles Strength 5/5 in all 4 extremities Sensation to light touch grossly present throughout Cranial nerves II-XII grossly intact No focal sensory deficits Lymphatics: no palpable cervical or supraclavicular , or inguinal lymph nodes Results CBC & Chem 7: 06/07/22 15:12 06/07/22 15:12 Labs: Abnormal Lab Results - Last 24 Hours (Table) 06/07/22 06/07/22 06/07/22 Range/Units 15:12 15:12 16:10 RBC 3.23 L (3.80-5.40) m/uL Hgb 9.4 L (11.4-16.0) gm/dL Hct 29.0 L (34.0-46.0) % APTT 19.8 L (22.0-30.0) sec D-Dimer 1.34 H (<0.60) mg/L FEU Sodium 136 L (137-145) mmol/L BUN 36 H (7-17) mg/dL Creatinine 1.31 H (0.52-1.04) mg/dL Total Protein 5.9 L (6.3-8.2) g/dL TSH (0.465-4.680) mIU/L 06/07/22 Range/Units 17:11 RBC (3.80-5.40) m/uL Hgb (11.4-16.0) gm/dL Hct (34.0-46.0) % APTT (22.0-30.0) sec D-Dimer (<0.60) mg/L FEU Sodium (137-145) mmol/L BUN (7-17) mg/dL Creatinine (0.52-1.04) mg/dL Total Protein (6.3-8.2) g/dL TSH 0.398 L (0.465-4.680) mIU/L Assessment and Plan Assessment: atypical chest pain rule out ACS EKG no acute changes CXR no acute pathology trops negative X2 monitoring engineer monitor vital signs ASA, statin cardiology consult A1c, lipid panel , TSH pain control D-dimer elevated CT injury of the chest negative for acute PE Patient reports melena Hemoglobin stable 9.4 History of GI bleeding Check fecal occult blood testing Chronic conditions Hypothyroidism levothyroxine Peripheral arterial disease status post iliac stents, continue with aspirin Full code DVT prophylaxis heparin subcu 3 times a day
[2022-06-08] MEDS ORDERED: HYDROmorphone 0.5 MG/0.5 ML SYRINGE IVP STA (06:50)
[2022-06-08] MEDS ORDERED: HYDROmorphone 0.5 MG/0.5 ML SYRINGE IVP PRN (06:50)
[2022-06-08] MEDS: PANTOPRAZOLE 40 MG TABLET PO SCH (08:03)
[2022-06-08] MEDS: HEPARIN SODIUM,PORCINE/PF 5,000 UNIT/0.5 ML SYRINGE SQ SCH ×2 (08:03→14:02)
[2022-06-08] MEDS: LEVOTHYROXINE 125 MCG TAB PO SCH (08:11)
--- NOTE | 2022-06-08 08:53 | P.CRDCN ---
History of Present Illness Consult date: 06/08/22 Chief complaint: Chest pain History of present illness: This is a pleasant 72-year-old female patient with a past medical history significant for lower except his peripheral arterial disease with prior stenting as well as hypertension and dyslipidemia and COPD and history of gastrointestinal bleeding as well as history of factor V Leiden. The patient follows with a cardiologis out of this area. We requested to see the patient as a consult for further evaluation of chest discomfort. The patient was in her usual state of health yesterday when she woke up from sleep in the morning complaining of chest discomfort in the middle of the chest as a crushing kind of discomfort was no radiation to the arms or neck or shoulders and no assisted his symptoms of shortness of breath or sweating or dizziness or lightheadedness or presyncope or syncope. She did have a total of 2 episodes each one lasted about 30 minutes and resolved with nitroglycerin bid currently the patient is chest pain-free. She decided to come to the hospital for further investigation. She underwent an EKG showed sinus rhythm with no significant ST or T-wave abnorma lities but only nonspecific changes and low-voltage QRS. The first set of cardiac enzymes came in to be unremarkable. She underwent a computed tomography scan of the chest which showed no pulmonary embolism. She also underwent a chest x-ray which came in to be unremarkable. Her hemoglobin is 9.2 which is her baseline. Past Medical History Past Medical History: Blood Disorder, COPD, Deep Vein Thrombosis (DVT), GERD/Reflux, Hyperlipidemia, Hypertension, Mitral Valve Prolapse (MVP), Osteoarthritis (OA), Pulmonary Embolus (PE), Thyroid Disorder Additional Past Medical History / Comment(s): States "have stomach bleed, low hemoglobin since Oct 2019." Migraines, MVP with regurgitation, hx ulcer, hiatal hernia, Factor V Leiden, varicose veins. History of Any Multi-Drug Resistant Organisms: None Reported Past Surgical History: Bariatric Surgery, Bowel Resection, Cholecystectomy, Hernia Repair, Orthopedic Surgery Additional Past Surgical History / Comment(s): GASTRIC SLEEVE, RT ANKLE SURGERY, "bowel release x 2", bilateral cataracts removed, vena cava filter. Right Knee replacement. Bl stents in iliac Past Anesthesia/Blood Transfusion Reactions: Postoperative Nausea & Vomiting (PONV) Additional Past Anesthesia/Blood Transfusion Reaction / Comment(s): Gets post op migraine for 5 days with each procedure. Past Psychological History: No Psychological Hx Reported Smoking Status: Former smoker Past Alcohol Use History: None Reported Additional Past Alcohol Use History / Comment(s): Quit smoking in 1987. Past Drug Use History: None Reported - Past Family History Father Family Medical History: Cancer Mother Family Medical History: Cancer Medications and Allergies Home Medications Medication Instructions Recorded Confirmed Type Losartan/Hydrochlorothiazide 1 tab PO HS 12/22/14 06/07/22 History [Losartan-Hctz 100-25 mg Tab] rOPINIRole HCL [Requip] 3 - 9 mg PO HS PRN 11/01/19 06/07/22 History Omeprazole 20 mg PO DAILY 07/13/20 06/07/22 History Aspirin EC [Ecotrin Low Dose] 81 mg PO HS 06/07/22 06/07/22 History Ergocalciferol [Vitamin D2 (1250 1,250 mcg PO Q28D 06/07/22 06/07/22 History Mcg = 26083 Iu)] Levothyroxine Sodium [Synthroid] 125 mcg PO DAILY 06/07/22 06/07/22 History Magnesium 200 mg PO DAILY 06/07/22 06/07/22 History Nitroglycerin Sl Tabs [Nitrostat] 0.4 mg SL Q5M PRN 06/07/22 06/07/22 History Potassium Chloride ER [K-Dur 10] 10 meq PO DAILY 06/07/22 06/07/22 History Rosuvastatin Calcium [Crestor] 40 mg PO HS 06/07/22 06/07/22 History Allergies Allergy/AdvReac Type Severity Reaction Status Date / Time codeine Allergy Swelling,mi Verified 06/07/22 21:25 graine morphine Allergy Swelling,mi Verified 06/07/22 21:25 graine nifedipine [From Procardia] Allergy Anaphylaxis Verified 06/07/22 21:25 Physical Exam Vitals: Vital Signs Temp Pulse Pulse Resp BP BP Pulse Ox 06/08/22 07:00 97.4 F L 62 18 110/67 96 06/08/22 06:42 70 16 121/62 99 06/08/22 01:17 69 14 123/70 96 06/07/22 22:00 97.8 F 66 20 116/68 98 06/07/22 20:30 97.6 F 68 20 128/78 98 06/07/22 18:00 97.8 F 62 18 136/70 99 06/07/22 16:14 62 06/07/22 16:00 64 17 130/68 99 06/07/22 14:51 97.6 F 66 18 135/71 100 Intake and Output 06/07/22 06/08/22 06/08/22 22:59 06:59 14:59 Other: # Voids 1 Weight 90.718 kg - Constitutional General appearance: no acute distress - Respiratory Respiratory: bilateral: CTA - Cardiovascular Rhythm: regular Heart sounds: normal: S1, S2 Abnormal Heart Sounds: systolic murmur Results 06/07/22 15:12 06/07/22 15:12 Cardiac Enzymes 06/07/22 06/07/22 Range/Units 15:12 15:12 AST 23 (14-36) U/L Troponin I <0.012 (0.000-0.034) ng/mL Coagulation 06/07/22 Range/Units 16:10 PT 10.0 (9.0-12.0) sec APTT 19.8 L (22.0-30.0) sec CBC 06/07/22 Range/Units 15:12 WBC 5.1 (3.8-10.6) k/uL RBC 3.23 L (3.80-5.40) m/uL Hgb 9.4 L (11.4-16.0) gm/dL Hct 29.0 L (34.0-46.0) % Plt Count 175 (150-450) k/uL Comprehensive Metabolic Panel 06/07/22 Range/Units 15:12 Sodium 136 L (137-145) mmol/L Potassium 4.2 (3.5-5.1) mmol/L Chloride 104 (98-107) mmol/L Carbon Dioxide 22 (22-30) mmol/L BUN 36 H (7-17) mg/dL Creatinine 1.31 H (0.52-1.04) mg/dL Glucose 88 (74-99) mg/dL Calcium 9.6 (8.4-10.2) mg/dL AST 23 (14-36) U/L ALT 11 (4-34) U/L Alkaline Phosphatase 65 (38-126) U/L Total Protein 5.9 L (6.3-8.2) g/dL Albumin 3.9 (3.5-5.0) g/dL Current Medications Generic Name Dose Route Start Last Admin Trade Name Freq PRN Reason Stop Dose Admin Aspirin 81 mg 06/08/22 21:00 Aspirin 81 Mg PO HS SHIVAM Atorvastatin Calcium 80 mg 06/08/22 21:00 Atorvastatin 80 Mg Tab PO HS SHIVAM HCTZ/Losartan Potassium 2 each 06/08/22 21:00 Losartan-Hctz 50-12.5 Mg 1 Each Tab PO HS SHIVAM Heparin Sodium (Porcine) 5,000 unit 06/08/22 08:00 06/08/22 08:03 Heparin Sodium,Porcine/Pf 5,000 Unit/0.5 Ml Syringe SQ Not Given Q8HR SHIVAM Hydromorphone HCl 0.5 mg 06/08/22 06:50 Hydromorphone 0.5 Mg/0.5 Ml Syringe IVP Q6HR PRN Pain Levothyroxine Sodium 125 mcg 06/08/22 06:30 06/08/22 08:11 Levothyroxine 125 Mcg Tab PO 125 mcg DAILY@0630 SHIVAM Administration Naloxone HCl 0.2 mg 06/07/22 20:59 Naloxone 0.4 Mg/Ml 1 Ml Vial IV Q2M PRN Opioid Reversal Pantoprazole Sodium 40 mg 06/08/22 09:00 06/08/22 08:03 Pantoprazole 40 Mg Tablet PO 40 mg DAILY SHIVAM Administration Intake and Output 06/07/22 06/08/22 06/08/22 22:59 06:59 14:59 Other: # Voids 1 Weight 90.718 kg 06/07/22 15:12 06/07/22 15:12 Assessment and Plan Assessment: Assessment Intermittent episodes of chest discomfort Lower extremities peripheral arterial disease Hypertension Dyslipidemia Factor V Leiden deficiency History of gastrointestinal bleeding Plan Rule out acute coronary event. Follow-up on the serial cardiac enzymes and the second set of troponin Consider myocardial perfusion imaging stress test if the troponin came in to be unremarkable Consider proceeding with coronary angiogram in the troponin came in to be abnormal Follow-up with the patient
--- NOTE | 2022-06-08 09:18 | P.PN ---
Subjective Progress Note Date: 06/08/22 Principal diagnosis: Chest pain Hospital Course: 72-year-old female with history of PAD s/p iliac stents, CAD, hypertension, factor V laden with VTE, and hyperthyroidism presenting with acute chest pain. Chest pain resolved while in the hospital. Cardiology consultated, pending recommendations. Patient was also complaining of episodes of melena at home. She has history of GI bleed, sees Dr. Martinez. Her last EGD and colonoscopy were last year, patient reported it was normal. Subjective: Patient seen and examined at bedside. No acute events overnight. She denies any recurrent episodes of chest pain. She has chronic epigastric pain. She denies any bowel movement since last . She denies any shortness of breath, cough, palpitations, lightheadedness, diarrhea, nausea, vomiting, or urinary complaints. Pertinent positives and negatives as discussed above, a complete review of systems was performed and all other systems are negative. Vitals Signs Reviewed. General: nontoxic, no distress, appears at stated age, obese Derm: warm, dry Head: atraumatic, normocephalic, symmetric Eyes: EOMI, no lid lag, anicteric sclera Mouth: no lip lesion, mucus membranes moist Cardiovascular: S1S2 reg, no murmur Lungs: CTA bilateral, no rhonchi, no rales , no accessory muscle use Abdominal: soft, mild epigastric tenderness, no guarding, no appreciable organomegaly Ext: no gross muscle atrophy, no edema, no contractures Neuro: CN II-XI grossly intact, no focal neuro deficits Psych: Alert, oriented, appropriate affect Assessment and Plan: Acute chest pain, rule out ACS -No active chest pain -EKG - nonspecific ST-T wave changes -Chest x-ray - no acute pathology -Troponin negative 1, repeat pending -D-dimer elevated, CT chest shows no PE -Telemetry -Aspirin and statin -Cardiology consult Melena, reported episodes -Hemoglobin stable -Last EGD and colonoscopy reported to be normal last year -No recent bowel movements Constipation -MiraLAX Factor V Leiden -History of GI bleed, patient not on anticoagulation Hypertension Dyslipidemia Hypothyroidism -Continue home meds F: Oral E: Replete as needed N: Heart healthy A: As tolerated DVT ppx: Heparin subcu Code status: Full code Anticipated discharge place: Home Anticipated discharge time: Tomorrow Objective - Vital Signs Vital signs: Vital Signs Temp 97.4 F L 06/08/22 07:00 Pulse 62 06/08/22 07:00 Resp 18 06/08/22 07:00 BP 110/67 06/08/22 07:00 Pulse Ox 96 06/08/22 07:00 FiO2 Intake & Output 06/07/22 06/08/22 06/08/22 18:59 06:59 18:59 Weight 90.718 kg 90.718 kg Other: # Voids 1 - Labs CBC & Chem 7: 06/07/22 15:12 06/07/22 15:12 Labs: Abnormal Lab Results - Last 24 Hours (Table) 06/07/22 06/07/22 06/07/22 Range/Units 15:12 15:12 16:10 RBC 3.23 L (3.80-5.40) m/uL Hgb 9.4 L (11.4-16.0) gm/dL Hct 29.0 L (34.0-46.0) % APTT 19.8 L (22.0-30.0) sec D-Dimer 1.34 H (<0.60) mg/L FEU Sodium 136 L (137-145) mmol/L BUN 36 H (7-17) mg/dL Creatinine 1.31 H (0.52-1.04) mg/dL Total Protein 5.9 L (6.3-8.2) g/dL TSH (0.465-4.680) mIU/L 06/07/22 Range/Units 17:11 RBC (3.80-5.40) m/uL Hgb (11.4-16.0) gm/dL Hct (34.0-46.0) % APTT (22.0-30.0) sec D-Dimer (<0.60) mg/L FEU Sodium (137-145) mmol/L BUN (7-17) mg/dL Creatinine (0.52-1.04) mg/dL Total Protein (6.3-8.2) g/dL TSH 0.398 L (0.465-4.680) mIU/L
[2022-06-08] MEDS: polyethylene glycoL 3350 17 GM POWD.PACK PO SCH (09:19)
[2022-06-08] MEDS ORDERED: CAFFEINE CITRATE 60 MG/3 ML VIAL IV PRN (10:10)
[2022-06-08] MEDS ORDERED: AMINOPHYLLINE 500 MG/20 ML VIAL IV PRN (10:10)
[2022-06-08] MEDS: ASPIRIN 81 MG PO SCH (21:17)
[2022-06-08] MEDS: LOSARTAN-HCTZ 50-12.5 MG 1 EACH TAB PO SCH (21:18)
[2022-06-08] MEDS: ATORVASTATIN 80 MG TAB PO SCH (21:18)
[2022-06-09] MEDS: HEPARIN SODIUM,PORCINE/PF 5,000 UNIT/0.5 ML SYRINGE SQ SCH ×4 (00:34→22:00)
[2022-06-09] MEDS: LEVOTHYROXINE 125 MCG TAB PO SCH (05:52)
[2022-06-09] MEDS ORDERED: REGADENOSON 0.4 MG/5 ML SYRINGE IV PRN (07:00)
[2022-06-09] MEDS ORDERED: REGADENOSON 0.4 MG/5 ML SYRINGE IV ONE (08:00)
[2022-06-09] MEDS: PANTOPRAZOLE 40 MG TABLET PO SCH (08:36)
[2022-06-09] MEDS: polyethylene glycoL 3350 17 GM POWD.PACK PO SCH (08:37)
--- NOTE | 2022-06-09 09:43 | P.PN ---
Subjective This is a pleasant 72-year-old female patient with a past medical history significant for peripheral arterial disease with prior stenting, hypertension, dyslipidemia and COPD, history of gastrointestinal bleeding as well as history of factor V Leiden. The patient follows with a manager special events out of this area. We requested to see the patient as a consult for further evaluation of chest discomfort. She underwent an EKG showed sinus rhythm with no significant ST or T-wave abnormalities but only nonspecific changes and low-voltage QRS. Troponin negative x 3. She underwent a computed tomography scan of the chest which showed no pulmonary embolism. She also underwent a chest x-ray which came in to be unremarkable. Patient seen and examined at bedside, no acute distress. Denies chest pain or shortness of breath. Vitals are stable. Acute coronary syndrome has been ruled out GENERAL: Well-appearing, well-nourished and in no acute distress. NECK: Supple without JVD or thyromegaly. LUNGS: Breath sounds clear to auscultation bilaterally. Respiration equal and unlabored. No wheezes, rales or rhonchi. HEART: Regular rate and rhythm without murmurs, rubs or gallops. S1 and S2 heard. EXTREMITIES: Normal range of motion, no edema. No clubbing or cyanosis. Peripheral pulses intact. ASSESSMENT Intermittent Episodes of chest discomfort, acute coronary syndrome has been ruled out Peripheral artery disease of the lower extremities Hypertension Dyslipidemia Factor V Leiden deficiency History of gastrointestinal bleeding PLAN An acute coronary event has been ruled out with no EKG evidence of ischemia and negative cardiac enzymes. Obtain 2D echocardiogram and doppler study to assess cardiac structure and function. Perform Lexiscan stress test to assess for stress induced cardiac ischemia. If abnormal will consider coronary angiography. If stress test and echocardiogram with no acute findings. No further inpatient workup from cardiology perspective, and recommend follow up outpatient Nurse practitioner note has been reviewed by physician. Signing provider agrees with the documented findings, assessment, and plan of care. Objective - Vital Signs Vital signs: Vital Signs Temp 98 F 06/09/22 07:00 Pulse 63 06/09/22 07:00 Resp 16 06/09/22 07:00 BP 105/66 06/09/22 07:00 Pulse Ox 99 06/09/22 07:00 FiO2 Intake & Output 06/08/22 06/09/22 06/09/22 18:59 06:59 18:59 Intake Total 360 Balance 360 Intake: Oral 360 Other: # Voids 1 1 - Labs CBC & Chem 7: 06/07/22 15:12 06/07/22 15:12
--- NOTE | 2022-06-09 13:02 | NM ---
EXAMINATION TYPE: NM stress lexiscan cardiolite DATE OF EXAM: 06/09/2022 COMPARISON: NONE HISTORY: Chest pain TECHNIQUE: After the intravenous administration of 10.17 mCi Tc 99m Sestamibi - Cardiolite resting S PECT images acquired 45 minutes post injection. The patient received 0.4mg Lexiscan, 22.548 mCi Tc 99m Sestamibi - Stress images obtained 40 minutes post injection FINDINGS: Review of stress and rest SPECT images demonstrates decreased uptake along the anterior wall of the l eft ventricle on stress as compared to rest images. Some decreased uptake is present on stress and r est images at the level of the apex. Gated analysis shows normal wall motion with an estimated left v entricular ejection fraction of 68 %. 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 Consider ech ocardiographic correlation for elevated ejection fraction. Difficult to exclude prior infarct.
[2022-06-09] MEDS ORDERED: ALPRAZolam 0.5 MG TAB PO PRN (13:37)
[2022-06-09] MEDS ORDERED: NITROGLYCERIN SL TABS 0.4 MG TAB SUBLINGUAL PRN (13:37)
[2022-06-09] MEDS ORDERED: ALPRAZolam 0.25 MG TAB PO PRN (13:37)
--- NOTE | 2022-06-09 13:40 | P.PN ---
Subjective Progress Note Date: 06/09/22 Hospital course: Patient is a very pleasant 72-year-old female with a past medical history of peripheral arterial disease with prior stenting, hypertension, hyperlipidemia, hypothyroidism, COPD, history of venous thromboembolism, factor V leiden, anemia of chronic disease, and stage III CKD. She presented to the emergency department with a chief complaint of chest pain. She underwent full evaluation in the emergency department. EKG revealing normal sinus rhythm at 60 bpm with T- wave inversion in leads III. chest x-ray negative for acute cardiopulmonary process. CBC revealing normocytic normochromic anemia with hemoglobin of 9.4 at baseline and CMP consistent with stage IIIc daily with BUN 36, creatinine 1.31, and GFR 41 at baseline creatinine. D-dimer was elevated at 1.34. CTA negative for pulmonary emboli revealing subsegmental atelectasis and scarring at lung bases with cardiomegaly and mild 4.2 cm aneurysm of the ascending aorta. Troponin less than 0.012. TSH 0.398 with normal free T4 of 1.77. Patient was admitted under our services with consultation to cardiology. Troponins trended overnight all negative at less than 0.012. Vital signs stable. Patient was evaluated by cardiology and taken for a Lexiscan stress test. Lexiscan stress test revealing findings consistent with pharmacologically induced left ventricular myocardial ischemia. Patient transferred from observation to inpatient stay at this time with plans to undergo cardiac cath tomorrow morning. Physical exam: Patient seen and fully evaluated at bedside this morning. Patient reports she has had complete resolution of chest pain in which she reported upon arrival. Patient reports his pain subsided approximately 1 hour after arriving to the emergency department and has not returned. Patient reports this pain did feel like a crushing sensation to her midsternal chest that radiated into her jaw and left shoulder. Patient currently denies having any complaints at this time incl uding headache, lightheadedness, dizziness, chest pain, palpitations, shortness of breath, exertional dyspnea, or experiencing any numbness/tingling/weakness in her extremities. Lexiscan stress test revealing findings consistent with pharmacologically induced left ventricular myocardial ischemia. Patient transferred from observation to inpatient stay at this time with plans to undergo cardiac cath tomorrow morning. Vital signs reviewed and stable. General: Nontoxic, no distress and appears stated age. Derm: Skin warm and dry, normal coloration for ethnicity. Head: Atraumatic, normocephalic and symmetric. Eyes: EOMs intact, no lid lag, and anicteric sclera Mouth: no lip lesions, mucus membranes moist Cardiovascular: regular rate and rhythm with normal S1S2, no murmur, positive posterior tibial pulses bilaterally, and cap refill < 2 seconds. Lungs: Respirations even, regular, and unlabored on room air. Lungs CTA bilaterally, no rhonchi, no rales, no wheezing, and no accessory muscle usage. Abdominal: soft, nontender to palpation, no guarding, no appreciable organomegaly Ext: ROM intact. No gross muscle atrophy, no edema, no contractures Neuro: Speech clear, face symmetrical and CN II-XII grossly intact with no noted focal neuro deficits Psych: Alert and oriented to person, place, time, and situation. Appropriate and pleasant affect. Assessment and Plan of Care: Chest pain, rule out acute coronary event -Cardiology following, planing to take patient for cardiac cath tomorrow morning. -Telemetry monitoring -Troponins were negative. -Lexiscan stress test revealed findings consistent with pharmacologically induced left ventricular myocardial ischemia. -Cardiac diet, NPO at midnight -Aspirin, atorvastatin, and Losartan-hydrochlorothiazide -Lipid profile with a.m. labs. -Echocardiogram D-dimer elevated, CTA negative for PE Aneurysm of the ascending aorta, -Recommend outpatient follow-up outpatient with vascular surgery for continued monitoring/management Peripheral vascular disease status post stenting, -Continue to follow-up outpatient with vascular surgery Anemia of chronic disease, stable Hypertension -Stable on medications. Monitor vital signs and continue daily medication regimen with losartan/hydrochlorothiazide. Hyperlipidemia -Continue daily medication regimen with rosuvastatin. Hypothyroidism -TSH 0.398 with normal free T4 of 1.77. Patient to continue daily medication regimen with levothyroxine. COPD Factor V Leyden disorder with history of venous thromboembolism. -Continue daily aspirin and continue to follow up outpatient with perennial house manager. Stage III CKD, stable CODE STATUS: Full code DVT prophylaxis: Heparin Discussed with: Patient, cardiology, and RN Anticipated discharge date: Clinical course to determine likely 1-[address]: Home A total of 37 minutes was spent on the care of this complex patient more than 50% of the time was spent in counseling and care coordination. Objective - Vital Signs Vital signs: Vital Signs Temp 98 F 06/09/22 07:00 Pulse 63 06/09/22 08:36 Resp 16 06/09/22 08:36 BP 105/66 06/09/22 07:00 Pulse Ox 99 06/09/22 07:00 FiO2 Intake & Output 06/08/22 06/09/22 06/09/22 18:59 06:59 18:59 Intake Total 360 Balance 360 Intake: Oral 360 Other: Voiding Method Toilet # Voids 1 1 - Labs CBC & Chem 7: 06/07/22 15:12 06/07/22 15:12
--- NOTE | 2022-06-09 17:31 | CA ---
Transthoracic Echo Report Name: Yelena Sonali Age: 72 Gender: F : 1950 Exam Date: 06/09/2022 13:38 Exam Location: [facility] Ht (in): 60 Wt (lb): 200 Ordering Physician: Tera Martinez MD ([id number]) Attending/Referring Phys: Juan HARPER Awning Finisher Silvina Velazquez RDCS Procedure CPT: Indications: Chest Pain Cardiac Hx: Technical Quality: Fair Contrast 1: Total Dose (mL): Contrast 2: Total Dose (mL): MEASUREMENTS (Male / Female) Normal Values 2D ECHO LV Diastolic Diameter PLAX 4.8 cm 4.2 - 5.9 / 3.9 - 5.3 cm LV Systolic Diameter PLAX 2.4 cm IVS Diastolic Thickness 1.1 cm 0.6 - 1.0 / 0.6 - 0.9 cm LVPW Diastolic Thickness 1.0 cm 0.6 - 1.0 / 0.6 - 0.9 cm LV Relative Wall Thickness 0.4 RV Internal Dim ED PLAX 3.3 cm LA Volume 49.1 cm??? 18 - 58 / 22 - 52 cm??? M-MODE Aortic Root Diameter MM 3.2 cm LA Systolic Diameter MM 3.8 cm LA Ao Ratio MM 1.2 AV Cusp Separation MM 2.4 cm DOPPLER AV Peak Velocity 166.7 cm/s AV Peak Gradient 11.1 mmHg LVOT Peak Velocity 131.3 cm/s LVOT Peak Gradient 6.9 mmHg MV Area PHT 2.7 cm??? Mitral E Point Velocity 101.0 cm/s Mitral A Point Velocity 107.3 cm/s Mitral E to A Ratio 0.9 MV Deceleration Time 286.2 ms MV E' Velocity 7.8 cm/s Mitral E to MV E' Ratio 12.9 TR Peak Velocity 208.1 cm/s TR Peak Gradient 17.3 mmHg Right Ventricular Systolic Press 22.3 mmHg FINDINGS Left Ventricle Mildly increased septal wall thickness. Mildly increased posterior wall thickness. Normal left ventricular systolic function with no obvious regional wall motion abnormalities. Left ventricular ejection fraction is estimated at 55-60 %. Right Ventricle Normal right ventricular size and function. Right ventricular systolic pressure within normal limits. Right Atrium Normal right atrial size. Left Atrium Normal left atrial size. Mitral Valve Structurally normal mitral valve. No mitral stenosis, regurgitation or prolapse. Aortic Valve Trileaflet aortic valve. No aortic valve stenosis or regurgitation. Tricuspid Valve Structurally normal tricuspid valve. Mild tricuspid regurgitation. Pulmonic Valve Structurally normal pulmonic valve. Trace pulmonic regurgitation. Pericardium No pericardial effusion. Aorta Normal size aortic root and proximal ascending aorta. CONCLUSIONS Normal left ventricular size wall motion systolic function Previewed by: Dr. Tera Martinez MD (Electronically Signed) Final Date: 09 June 2022 17:30
--- NOTE | 2022-06-09 18:04 | CA ---
Lexiscan Nuclear Stress Test Report Name: Sonali Kirk Exam Date: 06/09/2022 10:49 Exam Location: [facility] Stress Ht (in): 60 Wt (lb): 200 BSA: 1.87 Ordering Phys: Jorge Xie MD Referring Phys: DAVE, Technologist: Kj Masters Age: 72 Gender: F : 1950 Procedure CPT: Indications: Reflex order-Stress test ICD-10 Codes: Patient History: Medications: SEE LIST/CHART Meds past 24 hrs: Pretest Chest Pain: STRESS TEST Lexiscan Protocol Exercise Duration (min:sec): 02:[address] Depressions (mm): Angina Score: Chavira Score: Resting HR (bpm): 57 Peak HR (bpm): 86 Resting BP (mmHg): 108 / 45 Peak BP (mmHg): 136 / 64 MPHR: 149 Target HR: 127 % MPHR: 58 METS: 1.0 Total Dose: Peak Dose: Atropine: Double Product: 58311 BP Response: Stress Termination: STRESS PROTOCOL COMPLETE Stress Symptoms: NAUSEA Stress Summary: ECG ANALYSIS Resting ECG: Normal sinus rhythm normal axis normal at the valves Stress ECG: No significant ST segment depression with Lexiscan CONCLUSIONS Negative stress test by EKG criteria Cardiolite portion of the stress test will be reported separately Dr. Tera Martinez MD (Electronically Signed) Final Date: 09 June 2022 18:03
[2022-06-09] MEDS: ATORVASTATIN 80 MG TAB PO SCH (20:41)
[2022-06-09] MEDS: ASPIRIN 81 MG PO SCH (20:41)
[2022-06-09] MEDS: LOSARTAN-HCTZ 50-12.5 MG 1 EACH TAB PO SCH (21:52)
[2022-06-10] MEDS ORDERED: SODIUM CHLORIDE 0.9% 1,000 ML in EMPTY BAG 1 BAG IV ONE
[2022-06-10] MEDS ORDERED: ASPIRIN 325 MG TAB PO ONE (05:00)
[2022-06-10] MEDS: HEPARIN SODIUM,PORCINE/PF 5,000 UNIT/0.5 ML SYRINGE SQ SCH (05:12)
[2022-06-10] MEDS: LEVOTHYROXINE 125 MCG TAB PO SCH (05:43)
[2022-06-10] MEDS: PANTOPRAZOLE 40 MG TABLET PO SCH (05:43)
[2022-06-10 05:46] LABS: Glucose,Whole Blood 87 mg/dL (70-110)
[2022-06-10 06:45] LABS: African American GFR (CKD) 63 (>60 ml/min/1.73 sqM); Anion Gap 9 mmol/L; Blood Urea Nitrogen 20 mg/dL (7-17); Calcium 9.4 mg/dL (8.4-10.2); Carbon Dioxide 24 mmol/L (22-30); Chloride 104 mmol/L (98-107); Glucose 83 mg/dL (74-99); Non-African American GFR(CKD) 55 (>60 ml/min/1.73 sqM); Potassium 4.7 mmol/L (3.5-5.1); Sodium 137 mmol/L (137-145)
[2022-06-10] MEDS ORDERED: HEPARIN SODIUM,PORCINE 10,000 UNIT in SODIUM CHLORIDE 0.9% 1,000 ML IRRIGATION PRN (07:00)
[2022-06-10] MEDS ORDERED: HEPARIN SODIUM,PORCINE 2,500 UNIT in SODIUM CHLORIDE 0.9% 250 ML IRRIGATION PRN (07:00)
[2022-06-10] MEDS ORDERED: VERAPAMIL 2.5 MG/ML 2 ML AMP ONE (07:04)
[2022-06-10] MEDS ORDERED: HEPARIN SODIUM 1,000 UN/ML (10ML VL) ONE (07:04)
[2022-06-10] MEDS ORDERED: IV FLUID CONTINUATION 1,000 ML IV ONE (07:20)
[2022-06-10] MEDS ORDERED: LIDOCAINE 1% INJ 10MG/ML (30 ML VIAL-PF) SQ ONE (07:33)
[2022-06-10] MEDS ORDERED: MIDAZOLAM 2 MG/2 ML VIAL IV ONE (07:34)
[2022-06-10] MEDS: VERAPAMIL SYRINGE (5 MG/10 ML) INTRAARTER ONE ×2 (07:36→07:44)
[2022-06-10] MEDS ORDERED: HEPARIN SODIUM 1,000 UN/ML (10ML VL) IV ONE (07:39)
[2022-06-10] MEDS ORDERED: IOPAMIDOL-370 125ML BTL INJ ONE (07:43)
[2022-06-10] MEDS ORDERED: RX INFO: IV CONTRAST WAS GIVEN 1 EACH MISC MISCELLANE PRN (07:48)
--- NOTE | 2022-06-10 07:52 | P.PCN ---
Date of Procedure: 06/10/22 Operative Findings: 0 CARDIAC CATHETERIZATION PERFORMING PHYSICIAN: Jorge Xie MD, RPVI PROCEDURE PERFORMED: 1. Selective right and left coronary angiogram 2. Left heart catheterization INDICATION: This is a 72-year-old female patient who presented to the hospital with a chest discomfort and underwent myocardial perfusion imaging stress test came in to be abnormal showing reversibility/ischemia. In the light of that a heart catheterization was advised COMPLICATION: None APPROACH: Right radial artery LEVEL OF SEDATION: Moderate with a sedation length of 12 minutes PROCEDURE DESCRIPTION: After obtaining an informed consent, the patient was brought to cardiac photographic laboratory technician. Local anesthesia was performed using lidocaine subcutaneously. The right radial artery was cannulated using Seldinger technique, the guidewire passed easily, following that we advanced a 5-Bhutanese sheath dilator assembly, the wire and dilator were removed and sheath was flushed. Following that, 2 mg of verapamil along with 5000 unit heparin were given. Selective right and left coronary angiogram using a 6-Bhutanese JR4 and JL 3.5 catheters. Following that we did left heart catheterization using 6-Bhutanese pigtail catheter. The procedure was completed there was no complication. SELECTIVE CORONARY ANGIOGRAM: The right coronary artery: Large caliber vessel and a dominant vessel. Its angiographically normal. D istally bifurcates into PDA and PLV branches both appeared to be angiographically normal. Left main: It is angiographically normal and bifurcates into an LCx and LAD The left circumflex: Large caliber vessel nondominant vessel. The proximal LCx has mild disease only. Gives rises into the first and second obtuse marginal branches both appeared to be angiographically normal E for the circumflex continues in the AV groove as a moderate caliber vessel The left anterior descending artery: Large caliber vessel. Its angiographically normal. Gives rises into the first and second diagonal branches both are small caliber vessel and appears to be angiographically normal HEMODYNAMICS: The LVEDP was 12 mmHg was no significant gradient across aortic valve CONCLUSION: 1. Mild nonobstructive coronary artery disease 2. Normal left-sided filling pressure POSTPROCEDURE MANAGEMENT: Medical treatment and follow-up with the patient
[2022-06-10] MEDS ORDERED: SODIUM CHLORIDE 0.9% 1,000 ML IV SCH (08:00)
[2022-06-10] MEDS: polyethylene glycoL 3350 17 GM POWD.PACK PO SCH (10:29)
--- NOTE | 2022-06-10 10:30 | P.DS ---
Providers Date of admission: 06/09/22 13:28 Expected date of discharge: 06/10/22 Attending physician: Suzi Forrest MD Consults: 06/08/22 02:35 Consult Physician Routine Consulting Provider: Jorge Xie Consult Reason/Comments: chest pain Do you want consulting provider notified?: Yes, Notify in am [facility] Course: Discharge Diagnosis: Chest pain, acute coronary event ruled out. Troponins negative. EKG normal sinus rhythm at 60 bpm with T-wave inversion in lead III. Echocardiogram reve aling normal EF of 55-60% with normal left ventricular size, wall motion, and systolic function. Patient was taken for cardiac catheterization and was found to have mild nonobstructive coronary artery disease with normal left sided filling pressure. Acute coronary event has been ruled out. Patient medically stable for discharge and to follow up outpatient with PCP and cardiology as discussed. D-dimer elevated, CTA negative for PE Aneurysm of the ascending aorta, Recommend outpatient follow-up outpatient with vascular surgery for continued monitoring/management Peripheral vascular disease status post stenting, Continue to follow-up outpatient with vascular surgery Anemia of chronic disease, stable Hypertension. Stable on medications. Monitor vital signs and continue daily medication regimen with losartan/hydrochlorothiazide. Hyperlipidemia. Continue daily medication regimen with rosuvastatin. Hypothyroidism. TSH 0.398 with normal free T4 of 1.77. Patient to continue daily medication regimen with levothyroxine. COPD, not in acute exacerbation. 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 Continue daily aspirin and continue to follow up outpatient with citrus fruit packer. Stage III CKD, stable Hospital Course: Patient is a very pleasant 72-year-old female with a past medical history of peripheral arterial disease with prior stenting, hypertension, hyperlipidemia, hypothyroidism, COPD, history of venous thromboembolism, factor V leiden, anemia of chronic disease, and stage III CKD. She presented to the emergency department with a chief complaint of chest pain. She underwent full evaluation in the emergency department. EKG revealing normal sinus rhythm at 60 bpm with T- wave inversion in leads III. chest x-ray negative for acute cardiopulmonary process. CBC revealing normocytic normochromic anemia with hemoglobin of 9.4 at baseline and CMP consistent with stage IIIc daily with BUN 36, creatinine 1.31, and GFR 41 at baseline creatinine. D-dimer was elevated at 1.34. CTA negative for pulmonary emboli revealing subsegmental atelectasis and scarring at lung bases with cardiomegaly and mild 4.2 cm aneurysm of the ascending aorta. Troponin less than 0.012. TSH 0.398 with normal free T4 of 1.77. Patient was admitted under our services with consultation to cardiology. Troponins trended overnight all negative at less than 0.012. Vital signs stable. Echocardiogram revealing normal EF of 55-60% with normal left ventricular size, wall motion, and systolic function. Patient was evaluated by cardiology and taken for a Lexiscan stress test. Lexiscan stress test revealing findings consistent with pharmacologically induced left ventricular myocardial ischemia. Patient had resolution of previously reported chest pain, however secondary to failed stress test she was transferred from observation to inpatient admission to undergo cardiac cath. Patient was taken for cardiac catheterization and was found to have mild nonobstructive coronary artery disease with normal left sided filling pressure. Acute coronary event has been ruled out. Patient remains free from reports of chest pain at this time. She is medically stable for discharge with no medication changes made during this admission. Pt to follow up outpatient with PCP and cardiology as discussed. Physical exam: Vital signs reviewed and stable. General: Nontoxic, no distress and appears stated age. Derm: Skin warm and dry, normal coloration for ethnicity. Head: Atraumatic, normocephalic and symmetric. Eyes: EOMs intact, no lid lag, and anicteric sclera Mouth: no lip lesions, mucus membranes moist Cardiovascular: regular rate and rhythm with normal S1S2, no murmur, positive posterior tibial pulses bilaterally, and cap refill < 2 seconds. Lungs: Respirations even, regular, and unlabored on room air. Lungs CTA bilaterally, no rhonchi, no rales, no wheezing, and no accessory muscle usage. Abdominal: soft, nontender to palpation, no guarding, no appreciable organomegaly Ext: ROM intact. No gross muscle atrophy, no edema, no contractures Neuro: Speech clear, face symmetrical and CN II-XII grossly intact with no noted focal neuro deficits Psych: Alert and oriented to person, place, time, and situation. Appropriate and pleasant affect. A total of 35 minutes of time were spent preparing this complex discharge summary. Pt was discharged on 06/10/22 at 10:29 AM Teodoro Braun NP rendered care for this patient independently, reviewed the findings and plan as documented in the note above. I did not physically speak with or examine the patient on this date. Patient Condition at Discharge: Stable Plan - Discharge Summary New Discharge Prescriptions: Continue Losartan/Hydrochlorothiazide [Losartan-Hctz 100-25 mg Tab] 1 tab PO HS rOPINIRole HCL [Requip] 3 - 9 mg PO HS PRN PRN Reason: restless legs Omeprazole 20 mg PO DAILY Potassium Chloride ER [K-Dur 10] 10 meq PO DAILY Magnesium 200 mg PO DAILY Rosuvastatin Calcium [Crestor] 40 mg PO HS Levothyroxine Sodium [Synthroid] 125 mcg PO DAILY Aspirin EC [Ecotrin Low Dose] 81 mg PO HS Nitroglycerin Sl Tabs [Nitrostat] 0.4 mg SL Q5M PRN PRN Reason: Chest Pain Ergocalciferol [Vitamin D2 (1250 Mcg = 96758 Iu)] 1,250 mcg PO Q28D Discharge Medication List Losartan/Hydrochlorothiazide [Losartan-Hctz 100-25 mg Tab] 1 tab PO HS 12/22/14 [History] rOPINIRole HCL [Requip] 3 - 9 mg PO HS PRN 11/01/19 [History] Omeprazole 20 mg PO DAILY 07/13/20 [History] Aspirin EC [Ecotrin Low Dose] 81 mg PO HS 06/07/22 [History] Ergocalciferol [Vitamin D2 (1250 Mcg = 01799 Iu)] 1,250 mcg PO Q28D 06/07/22 [History] Levothyroxine Sodium [Synthroid] 125 mcg PO DAILY 06/07/22 [History] Magnesium 200 mg PO DAILY 06/07/22 [History] Nitroglycerin Sl Tabs [Nitrostat] 0.4 mg SL Q5M PRN 06/07/22 [History] Potassium Chloride ER [K-Dur 10] 10 meq PO DAILY 06/07/22 [History] Rosuvastatin Calcium [Crestor] 40 mg PO HS 06/07/22 [History] Follow up Appointment(s)/Referral(s): Jorge Xie MD [STAFF PHYSICIAN] - 1 Week (Office will call patient with date and time of appointment) Shivani Camara DO [STAFF PHYSICIAN] - 2 Weeks Freeman Moran DO [Primary Care Provider] - 1-2 days Patient Instructions/Handouts: After Radial Heart Catheterization (GEN), Left Heart Catheterization (DC) Activity/Diet/Wound Care/Special Instructions: Activity: As tolerated. Take breaks as needed. Diet: Heart healthy and carb consistent diet. Avoid salts, or foods with hidden salts such as canned or boxed foods and frozen dinners. Extra salt makes your heart work harder and traps the fluid in your body for longer. Special Instructions: Take all of your medications as directed and remember to keep all of your doctor's appointments and follow-up as needed. Thank you for allowing us to participate in your care, it was truly a pleasure having you for our patient!!! Discharge Disposition: HOME SELF-CARE
[2022-06-10 10:46] VITALS: RESP 18
[2022-06-10 11:09] VITALS: PULSE 68; TEMP 97.8
[2022-06-10 12:45] VITALS: BP 108/69
== END 2022-06-10 13:00 | disposition home or self-care (01) | DRG 287 ==
LOC: EC 14:47 → 6NMEDSUR 21:45 → OBSVTOIN 06-09 13:28
PROVIDERS: ADMIT Internal Medicine; ATTEND Internal Medicine
PROC: 4A023N7 Measurement of Cardiac Sampling and Pressure, Left Heart, Percutaneous Approach (ICD-10-PCS; principal; 2022-06-10 07:15)
PROC: B2111ZZ Fluoroscopy of Multiple Coronary Arteries using Low Osmolar Contrast (ICD-10-PCS; principal; 2022-06-10 07:15)
DX: I25.10 Atherosclerotic heart disease of native coronary artery without angina pectoris (principal); K92.1 Melena; D68.51 Activated protein C resistance; E03.9 Hypothyroidism, unspecified; E78.5 Hyperlipidemia, unspecified; I12.9 Hypertensive chronic kidney disease with stage 1 through stage 4 chronic kidney disease, or unspecified chronic kidney disease; I45.10 Unspecified right bundle-branch block; I73.9 Peripheral vascular disease, unspecified; I25.9 Chronic ischemic heart disease, unspecified; I51.7 Cardiomegaly; J44.9 Chronic obstructive pulmonary disease, unspecified; K59.00 Constipation, unspecified; N18.30 Chronic kidney disease, stage 3 unspecified; D63.1 Anemia in chronic kidney disease; I71.2 Thoracic aortic aneurysm, without rupture; G89.29 Other chronic pain; K21.9 Gastro-esophageal reflux disease without esophagitis; Z96.651 Presence of right artificial knee joint; Z79.890 Hormone replacement therapy; Z86.711 Personal history of pulmonary embolism; Z86.718 Personal history of other venous thrombosis and embolism; Z87.891 Personal history of nicotine dependence; Z95.820 Peripheral vascular angioplasty status with implants and grafts; Z86.79 Personal history of other diseases of the circulatory system; Z79.82 Long term (current) use of aspirin; Z79.899 Other long term (current) drug therapy
CPT/HCPCS: 36415; 71046; 71275; 78452; 80048; 80053; 83735; 84439; 84443; 84484; 85025; 85379; 85610; 85730; 93005; 93017; 93306; 93458; 99285

== ENCOUNTER → 2022-06-20 | Outpatient (CLI) | payer MEDICARE, OTHER ==
[2022-06-20 20:52] LABS: % Iron Saturation 6.97 (12.00-45.00); Ferritin 68.3 ng/mL (10.0-291.0)
== END | disposition home or self-care (01) ==
LOC: LABWHC1 11:59
PROVIDERS: ATTEND Internal Medicine Hematology & Oncology
DX: I26.99 Other pulmonary embolism without acute cor pulmonale (principal); D68.59 Other primary thrombophilia; E03.9 Hypothyroidism, unspecified; E66.3 Overweight
CPT/HCPCS: 36415; 82728; 83540; 83550

== ENCOUNTER → 2022-07-29 | Outpatient (CLI) | payer MEDICARE, OTHER ==
--- NOTE | 2022-07-30 07:31 | MM ---
Reason for Exam: Screening (asymptomatic). Last mammogram was performed 2 year(s) and 11 month(s) ago. Patient History: Menarche at age 13. First Full-Term at age 22. Postmenopausal. Maternal grandmother had breast cancer. Risk Values: Amber 5 year model risk: 1.6%. NCI Lifetime model risk: 4.3%. Prior Study Comparison: 01/22/2007 Screening Mammogram, [facility]. 09/20/2009 Screening Mammogram, [facility]. 03/02/2013 Bilateral Screening Mammogram, [facility]. 03/06/2015 Bilateral Screening Mammogram, [facility]. 04/21/2016 Bilateral Screening Mammogram, [facility]. 05/21/2017 Bilateral Screening Mammogram, [facility]. 09/19/2019 Bilateral Screening Mammogram, [facility]. Tissue Density: There are scattered fibroglandular densities. Findings: Analyzed By CAD. There is benign-appearing vascular along with linear and round calcifications in the bilateral breasts redemonstrated. There is no suspicious new group of microcalcifications or new suspicious mass in either breast. Overall Assessment: Benign, BI-RAD 2 Management: Screening Mammogram of both breasts in 1 year. A clinical breast exam by your physician is recommended on an annual basis and results should be correlated with mammographic findings. Electronically signed and approved by: Matthew Molina M.D.
== END | disposition home or self-care (01) ==
LOC: RADMAMWWP 07:23
PROVIDERS: ATTEND Family Medicine
DX: Z12.31 Encounter for screening mammogram for malignant neoplasm of breast (principal)
CPT/HCPCS: 77063; 77067

== ENCOUNTER → 2023-04-24 | Outpatient (CLI) | payer MEDICARE, OTHER ==
[2023-04-24 08:20] LABS: INR 0.9 (<1.2); Partial Thromboplastin Time 22.9 sec (22.0-30.0); Prothrombin Time 9.8 sec (9.0-12.0)
[2023-04-24 11:30] LABS: HCT 40.3 % (37.2-46.3); MCH 29.5 pg (27.0-32.0); MCHC 32.3 d/dL (32.0-37.0); MCV 91.6 FL (80.0-97.0); Mean Platelet Volume 10.4 FL (9.5-12.2); NRBC Per 100 WBC 0 X 10*3/uL (0.00-0.01); Platelet Count 197 X 10*3/uL (140-440); RDW 12.9 % (11.5-14.5); WBC 3.85 X 10*3/uL (4.50-10.00)
[2023-04-24 11:32] LABS: Prealbumin 24.9 mg/dL (18.0-42.0)
[2023-04-24 11:52] LABS: % Iron Saturation 30.99 (12.00-45.00); ALT 16 U/L (8-44); AST 26 U/L (13-35); Albumin 4.4 d/dL (3.8-4.9); Alkaline Phosphatase 58 U/L (41-126); BUN/Creat Ratio 22.82 Ratio (12.00-20.00); Blood Urea Nitrogen 25.1 mg/dL (9.0-27.0); Calcium 10.4 mg/dL (8.7-10.3); Carbon Dioxide 26.9 mmol/L (21.6-31.8); Chloride 101 mmol/L (96-109); Chol/HDL Ratio 2.68 Ratio; Glucose 95 mg/dL (70-110); Iron 88 UG/DL (50-170); LDL Cholesterol,Calculated 105.1 mg/dL (0.0-131.0); Magnesium 2.1 mg/dL (1.5-2.4); Phosphorus 3.7 mg/dL (2.4-5.1); Potassium 4.9 mmol/L (3.5-5.5); Sodium 138 mmol/L (135-145); Total Bilirubin 0.3 mg/dL (0.3-1.2); Total Iron Binding Capacity 284 UG/DL (228-460); Total Protein 6.4 d/dL (6.2-8.2); VLDL Calculation 18.36 mg/dL (5.00-40.00)
== END | disposition home or self-care (01) ==
LOC: LABWHC1 07:00
PROVIDERS: ATTEND Surgery Plastic and Reconstructive Surgery
DX: E66.01 Morbid (severe) obesity due to excess calories (principal); E89.1 Postprocedural hypoinsulinemia; I45.10 Unspecified right bundle-branch block; D50.8 Other iron deficiency anemias; K91.2 Postsurgical malabsorption, not elsewhere classified; E44.0 Moderate protein-calorie malnutrition; E44.1 Mild protein-calorie malnutrition; E55.9 Vitamin D deficiency, unspecified; K74.1 Hepatic sclerosis; N19 Unspecified kidney failure; T56.894A Toxic effect of other metals, undetermined, initial encounter; K50.90 Crohn's disease, unspecified, without complications
CPT/HCPCS: 36415; 80053; 80061; 82306; 82525; 82607; 82728; 82746; 83036; 83540; 83550; 83735; 83970; 84100; 84134; 84255; 84425; 84443; 84590; 84630; 85027; 85610; 85730; 93005

== ENCOUNTER 2023-05-11 07:48 | Day surgery (SDC) | payer MEDICARE, OTHER ==
[~2023-05-11 07:48] MED LIST changes: +DEXAMETHASONE SOD PHOSPHATE 4 MG/ML 1 ML VIAL IV ONE; +HYDROmorphone 0.5 MG/0.5 ML SYRINGE IVP PRN; +LIDOCAINE 1% (10MG/ML) FOR IV START INTRADERMA PRN; +MIDAZOLAM 2 MG/2 ML VIAL IV PRN; +ONDANSETRON 4 MG/2 ML VIAL IVP ONE
[2023-05-11 08:30] VITALS: RESP 16; TEMP 97.6
[2023-05-11] MEDS ORDERED: PROPOFOL 10 MG/ML 20 ML VIAL IV ONE (08:32)
[2023-05-11] MEDS ORDERED: LIDOCAINE 2% INJ 20 MG/ML (2 ML VIAL) ONE (08:32)
--- NOTE | 2023-05-11 09:06 | P.GSHP ---
History of Present Illness H&P Date: 05/11/23 CHIEF COMPLAINT: GERD HISTORY OF PRESENT ILLNESS: The patient is a 73-year-old female who presents reports gastroesophageal reflux disease. Upper endoscopy was offered for further evaluation and management. PAST MEDICAL HISTORY: Please see list. PAST SURGICAL HISTORY: Please see list. MEDICATIONS: Please see list. ALLERGIES: Please see list. SOCIAL HISTORY: No illicit drug use FAMILY HISTORY: No reports of Crohn disease or ulcerative colitis. REVIEW OF ORGAN SYSTEMS: CONSTITUTIONAL: No reports of fevers or chills. GI: Denies any blood in stools or constipation. PHYSICAL EXAM: VITAL SIGNS: Stable GENERAL: Well-developed and pleasant in no acute distress. HEENT: No scleral icterus. Extraocular movements grossly intact. Moist buccal mucosa. NECK: Supple without lymphadenopathy. CHEST: Unlabored respirations. Equal bilateral excursions. CARDIOVASCULAR: Regular rate and rhythm. Distal 2+ pulses. ABDOMEN: Soft, nondistended. MUSCULOSKELETAL: No clubbing, cyanosis, or edema. ASSESSMENT: 1. Gastroesophageal reflux disease PLAN: 1. Recommend proceeding with an upper endoscopy Past Medical History Past Medical History: Blood Disorder, Deep Vein Thrombosis (DVT), GERD/Reflux, Hyperlipidemia, Hypertension, Mitral Valve Prolapse (MVP), Osteoarthritis (OA), Pulmonary Embolus (PE), Thyroid Disorder, Vascular Disorder Additional Past Medical History / Comment(s): Abdominal pain, ulcers/multiple stomach bleeds, hiatal hernia, low hemoglobin since teen, PVD, migraines, MVP with regurgitation, Factor V Leiden, DVTs bilateral legs, PE laterality unknown. History of Any Multi-Drug Resistant Organisms: None Reported Past Surgical History: Bariatric Surgery, Bowel Resection, Cholecystectomy, Hernia Repair, Joint Replacement, Orthopedic Surgery Additional Past Surgical History / Comment(s): GASTRIC SLEEVE, EGDs, colonoscopies, RT ANKLE SURGERY, "bowel release x 2", bilateral cataracts removed, vena cava filter. Right Knee replacement. Bl stents in iliac Past Anesthesia/Blood Transfusion Reactions: Postoperative Nausea & Vomiting (PONV) Additional Past Anesthesia/Blood Transfusion Reaction / Comment(s): Gets post op migraine for 5 days with each procedure. Smoking Status: Former smoker - Past Family History Father Family Medical History: Cancer Mother Family Medical History: Cancer Medications and Allergies Home Medications Medication Instructions Recorded Confirmed Type Losartan/Hydrochlorothiazide 1 tab PO HS 12/22/14 05/11/23 History [Losartan-Hctz 100-25 mg Tab] rOPINIRole HCL [Requip] 3 - 9 mg PO HS PRN 11/01/19 05/11/23 History Omeprazole 20 mg PO QAM 07/13/20 05/11/23 History Aspirin EC [Ecotrin Low Dose] 81 mg PO HS 06/07/22 05/11/23 History Levothyroxine Sodium [Synthroid] 125 mcg PO QAM 06/07/22 05/11/23 History Rosuvastatin Calcium [Crestor] 40 mg PO HS 06/07/22 05/11/23 History Ergocalciferol [Vitamin D2 (1250 50,000 unit PO GRIMALDO 04/27/23 05/11/23 History Mcg = 37402 Iu)] Acetaminophen Tab [Tylenol] 325 mg PO Q4-6H 05/07/23 05/11/23 History Sucralfate [Carafate] 1 gm PO BID #30 tablet 05/11/23 Rx Allergies Allergy/AdvReac Type Severity Reaction Status Date / Time nifedipine [From Procardia] Allergy Severe Anaphylaxis Verified 05/11/23 08:12 codeine Allergy Swelling,mi Verified 05/11/23 08:12 graine morphine Allergy Swelling,mi Verified 05/11/23 08:12 graine Surgical - Exam Vital Signs Temp Pulse Resp BP Pulse Ox 97.6 F 60 16 139/62 98 05/11/23 08:10 05/11/23 08:10 05/11/23 08:10 05/11/23 08:10 05/11/23 08:10
[2023-05-11 09:07] VITALS: BP 114/67; PULSE 61
--- NOTE | 2023-05-11 09:08 | P.PCN ---
Date of Procedure: 05/11/23 Description of Procedure: PREOPERATIVE DIAGNOSIS: Gastroesophageal reflux disease. Hiatal hernia Status post sleeve gastrectomy. Epigastric abdominal pain. POSTOPERATIVE DIAGNOSIS: Status post sleeve gastrectomy. Gastroesophageal reflux disease. Epigastric abdominal pain. Erosive esophagitis, chronic. Diaphragmatic hiatal hernia without obstruction. Chronic superficial gastritis. OPERATION: Esophagogastroduodenoscopy with cold forceps biopsies along the antrum and duodenum SURGEON: Mary Viramontes MD ANESTHESIA: MAC. INDICATIONS: The patient is a 73-year-old female who presents with a history of sleeve gastrectomy with abdominal pain. She is over 5 years out from her bariatric procedure. Benefits and risks of the procedure were described. Informed consent was obtained. DESCRIPTION: The patient was brought into the endoscopy suite and laid in the left lateral decubitus position. An Olympus gastroscope was passed along the posterior oropharynx down to the distal esophagus where the squamocolumnar junction was at 41 centimeters from the incisors remarkable for chronic erosive esophagitis, LA grade A without ulceration. The stomach was entered where she had a 2-cm hiatal hernia with a diaphragmatic hiatus found at 43 cm. The sleeve reservoir moderately large allowing easy retroflexion of the scope to view the lower esophageal valve. Chronic gastritis was found along the antrum with cold biopsies obtained. The first through third portion of the duodenum was examined and biopsies obtained. The scope again had easily retroflexed along the antrum. The stomach was desufflated. The patient tolerated the procedure well. FINDINGS: No acute ulceration found along her sleeve. No corkscrewing sleeve gastrectomy. Squamocolumnar junction at 41 cm from the incisors. Diaphragmatic hiatus at 43 cm. Easy retroflexion of the gastroscope to view the lower esophageal valve. Hiatal hernia 2 cm, fixed. LA grade B erosive esophagitis. Biopsies obtained of duodenum Chronic gastritis, severe biopsies obtained RECOMMENDATIONS: Upper endoscopy as needed. May benefit from antireflux operation. Carafate 1 g twice a day in addition to omeprazole Plan - Discharge Summary Discharge Rx Participant: No New Discharge Prescriptions: New Sucralfate [Carafate] 1 gm PO BID #30 tablet Continue Losartan/Hydrochlorothiazide [Losartan-Hctz 100-25 mg Tab] 1 tab PO HS rOPINIRole HCL [Requip] 3 - 9 mg PO HS PRN PRN Reason: restless legs Omeprazole 20 mg PO QAM Rosuvastatin Calcium [Crestor] 40 mg PO HS Levothyroxine Sodium [Synthroid] 125 mcg PO QAM Aspirin EC [Ecotrin Low Dose] 81 mg PO HS Ergocalciferol [Vitamin D2 (1250 Mcg = 32937 Iu)] 50,000 unit PO GRIMALDO Acetaminophen Tab [Tylenol] 325 mg PO Q4-6H Discharge Medication List Losartan/Hydrochlorothiazide [Losartan-Hctz 100-25 mg Tab] 1 tab PO HS 12/22/14 [History] rOPINIRole HCL [Requip] 3 - 9 mg PO HS PRN 11/01/19 [History] Omeprazole 20 mg PO QAM 07/13/20 [History] Aspirin EC [Ecotrin Low Dose] 81 mg PO HS 06/07/22 [History] Levothyroxine Sodium [Synthroid] 125 mcg PO QAM 06/07/22 [History] Rosuvastatin Calcium [Crestor] 40 mg PO HS 06/07/22 [History] Ergocalciferol [Vitamin D2 (1250 Mcg = 11922 Iu)] 50,000 unit PO GRIMALDO 04/27/23 [History] Acetaminophen Tab [Tylenol] 325 mg PO Q4-6H 05/07/23 [History] Sucralfate [Carafate] 1 gm PO BID #30 tablet 05/11/23 [Rx] Follow up [facility]ment[facility] [place] [facility] Patient Instructions/Handouts: Hiatal Hernia (DC), Gastritis (DC) Discharge Disposition: HOME SELF-CARE
== END 2023-05-11 09:38 | disposition home or self-care (01) ==
LOC: ORWHC2ENDO 07:48
PROVIDERS: ATTEND Surgery Plastic and Reconstructive Surgery
DX: K21.9 Gastro-esophageal reflux disease without esophagitis (principal); K44.9 Diaphragmatic hernia without obstruction or gangrene; K22.10 Ulcer of esophagus without bleeding; K29.30 Chronic superficial gastritis without bleeding; I10 Essential (primary) hypertension; E78.5 Hyperlipidemia, unspecified; I34.1 Nonrheumatic mitral (valve) prolapse; D68.51 Activated protein C resistance; Z90.49 Acquired absence of other specified parts of digestive tract; Z79.82 Long term (current) use of aspirin; Z79.899 Other long term (current) drug therapy; Z87.891 Personal history of nicotine dependence; Z79.890 Hormone replacement therapy
CPT/HCPCS: 88305; 43239; J2704; J2001

== ENCOUNTER → 2023-05-15 | Outpatient (CLI) | payer MEDICARE, OTHER ==
[2023-05-15 09:13] LABS: African American GFR (CKD) 54 (>60 ml/min/1.73 sqM); Blood Urea Nitrogen 28 mg/dL (7-17); Non-African American GFR(CKD) 47 (>60 ml/min/1.73 sqM)
--- NOTE | 2023-05-15 12:09 | FL ---
EXAMINATION TYPE: FL barium swallow DATE OF EXAM: 05/15/2023 11:54 AM COMPARISON: 01/01/2015 CLINICAL INDICATION:Female, 73 years old with history of R13.10 DYSPHAGIA; TECHNIQUE: The procedure was explained and patient history elicited. All patient questions were ans wered prior to start of procedure. Multiple spot fluoroscopic images of the esophagus were obtained a fter the oral ingestion of effervescent crystals and liquid barium as the contrast agent. Fluoroscopic time:29 seconds Fluoroscopic images: 0 Radiographs taken: 123 DAP: 2194 cGym2 FINDINGS: The esophagus demonstrates normal primary and secondary peristalsis. There is dilation of the esophag us with patulous gastroesophageal junction. The esophageal mucosa is smooth without evidence of focal stricture, ulceration, or abnormal outpouching. No reflux definitively visualized however the patien t did not have a full stomach. IMPRESSION: Patulous esophagus with free flow of contrast through the esophagus and gastroesophageal junction. Presley edwards had significant amount of eructation and the exam.
--- NOTE | 2023-05-17 01:07 | CT ---
EXAMINATION TYPE: CT abdomen pelvis wo con DATE OF EXAM: 05/15/2023 COMPARISON: None HISTORY: 73-year-old female K5 6.60, dysphagia, abdominal pain CT DLP: 878 mGycm. Automated exposure control for dose reduction was used. TECHNIQUE: Contiguous axial scanning of the abdomen and pelvis without IV contrast. Coronal and sagit sharon reconstructions performed. FINDINGS: Heart upper limits of normal in size without pericardial effusion. Scattered coronary artery calcific ations are present. Strandy atelectasis in the lower lungs. No pleural effusion. Status post sleeve gastrectomy. Noncontrast appearance of the liver, adrenal glands, spleen, and pancreas within normal limits. Bile duct mildly dilated at 1.1 cm, probably chronic given postcholecystectomy status. There is fullness of the bilateral renal collecting system/mild hydronephrosis. No distal obstructing stone is seen. No dilated small bowel, free fluid, free air. No mesenteric or retroperitoneal lymphadenopathy. There is a rectus diastasis with a 14.2 cm wide and 11.7 cm craniocaudal anterior abdominal wall defe ct with a anterior bulging small bowel loops and mesentery some of the transverse colon also bulges a nteriorly across the wide defect. Mild stool burden. Normal appendix. Oral contrast progressed to the hepatic flexure of the colon. Left-sided colonic diverticulosis particularly in the sigmoid colon. N o pericolonic inflammatory change. IVC filter. Bilateral kissing common iliac artery stents. Prominent distention of the urinary bladder. Uterus anteverted. Internal areas of calcification sugge sting calcified fibroids, for example, measuring up to 2.6 cm at the left uterine fundus. Both ovarie s are visualized. No abnormal fluid collection in the pelvis or pelvic lymphadenopathy. Bones: Mild degenerative change at the hips. Hypertrophic facet arthropathy mid to lower lumbar spine . Moderate to advanced degenerative disc disease L4-L5. IMPRESSION: 1. A large rectus diastases measuring 14.2 cm wide and 11.7 cm craniocaudal. There are anterior bulg ing small bowel loops and a short segment of transverse colon. No obstructive changes. 2. Status post sleeve gastrectomy. 3. Fullness of the bilateral renal collecting systems. Unclear if this is transient or represents mi ld hydronephrosis. Recommend short interval follow-up renal ultrasound to reassess. 4. Left-sided colonic diverticulosis, greatest in the sigmoid colon. No evidence for acute diverticu litis. 5. Fibroid uterus with a calcified fibroid measuring up to 2.6 cm.
== END | disposition home or self-care (01) ==
LOC: RADCTMAIN 08:02
PROVIDERS: ATTEND Surgery Plastic and Reconstructive Surgery
DX: K57.30 Diverticulosis of large intestine without perforation or abscess without bleeding (principal); D25.9 Leiomyoma of uterus, unspecified; K56.609 Unspecified intestinal obstruction, unspecified as to partial versus complete obstruction; M16.0 Bilateral primary osteoarthritis of hip; M51.36 Other intervertebral disc degeneration, lumbar region; M47.816 Spondylosis without myelopathy or radiculopathy, lumbar region; M62.08 Separation of muscle (nontraumatic), other site; R13.10 Dysphagia, unspecified; Z98.84 Bariatric surgery status
CPT/HCPCS: 36415; 74176; 74220; 82565; 84520

== ENCOUNTER → 2023-05-20 | Outpatient (CLI) | payer MEDICARE, OTHER ==
[2023-05-20 15:59] VITALS: BP 129/73; PULSE 61; TEMP 97.7; BMI 38.4
--- NOTE | 2023-05-20 16:18 | P.BASOAP ---
Subjective Progress Note Date: 05/20/23 Higehest weight 286 pounds. Lowest weight 197 pounds. 210 pounds. 30 pounds. Dernatologist advised. Nystatin powder. 6 months ABdominal wall reconstruction. Objective - Vital Signs Vital signs: Vital Signs Temp 97.7 F 05/20/23 15:52 Pulse 61 05/20/23 15:52 Resp BP 129/73 05/20/23 15:52 Pulse Ox FiO2 Intake & Output 05/19/23 05/20/23 05/20/23 18:59 06:59 18:59 Weight 96.842 kg Assessment/Plan Plan: Date: 05/20/23 Initial Weight: 128.548 kg Initial BMI: 51.0 Current Weight: 96.842 kg Current BMI: 38.4 Type of Surgery: Total Volume in Band: Previous Volume: Volume Removed: Volume Added: Band Size:
== END ==
LOC: BARWHC3 15:22
PROVIDERS: ATTEND Surgery Plastic and Reconstructive Surgery
DX: Z53.9 Procedure and treatment not carried out, unspecified reason (principal)
CPT/HCPCS: 99211

== ENCOUNTER → 2023-07-08 | Outpatient (CLI) | payer MEDICARE, OTHER ==
[2023-07-08 16:01] VITALS: BP 147/82; PULSE 76; TEMP 97.4; BMI 37.2
--- NOTE | 2023-07-08 17:08 | P.BASOAP ---
Subjective Progress Note Date: 07/08/23 She comes in with large ventral hernia. She is looking to have repaired withtout abdominal wall reconstruction or panniclectomy. Patient advised for second opinion. Alternatively self referral to the [facility] for dr mitch martinez for hernia roller repairer. Hernia fourth repair. Very high risk with loss of domain. She has lost 7 pounds. Objective - Vital Signs Vital signs: Vital Signs Temp 97.4 F L 07/08/23 15:53 Pulse 76 07/08/23 15:53 Resp BP 147/82 07/08/23 15:53 Pulse Ox FiO2 Intake & Output 07/07/23 07/08/23 07/08/23 18:59 06:59 18:59 Weight 93.894 kg Assessment/Plan Plan: Date: 07/08/23 Initial Weight: 128.548 kg Initial BMI: 51.0 Current Weight: 93.894 kg Current BMI: 37.2 Type of Surgery: Total Volume in Band: Previous Volume: Volume Removed: Volume Added: Band Size:
== END ==
LOC: BARWHC3 15:03
PROVIDERS: ATTEND Surgery Plastic and Reconstructive Surgery
DX: Z53.9 Procedure and treatment not carried out, unspecified reason (principal)
CPT/HCPCS: 99211

== ENCOUNTER → 2023-10-08 | Outpatient (CLI) | payer MEDICARE, OTHER ==
--- NOTE | 2023-10-08 18:32 | BD ---
EXAMINATION TYPE: Axial Bone Density DATE OF EXAM: 10/08/2023 CLINICAL HISTORY: 73 years old Female. ICD-10 CODE: M859 DISORDER OF BONE Height: 59.5in Weight: 211lb FRAX RISK QUESTIONS: History of Fracture in Adulthood: yes Secondary Osteoporosis: RISK FACTORS HISTORY OF: History of Wrist Fracture: yes, pt unsure which wrist Lost more than 2 inches in height since high school: yes MEDICATIONS: Thyroid Medications: Which medication: Synthroid How Lon+ years EXAM MEASUREMENTS: Bone mineral densitometry was performed using the [employer]era System. Bone mineral density as measured about the Lumbar spine is: ----- L1-L4(G/cm2): 1.313 T Score Values are as follows: ----- L1: -1.2 ----- L2: 0.2 ----- L3: 1.9 ----- L4: 3.3 ----- L1-L4: 1.1 Z Score Values are as follows: ----- L1: -0.5 ----- L2: 0.9 ----- L3: 2.6 ----- L4: 4.0 ----- L1-L4: 1.8 Bone mineral density has: Decreased 7.2% since study of: 09-19-19 Bone mineral density about the R hip (g/cm2): 0.892 Bone mineral density about the L hip (g/cm2): 0.945 T Score values are as follows: -----R Neck: -1.8 -----L Neck: -1.8 -----R Total: -0.9 -----L Total: -0.5 Z Score values are as follows: -----R Neck: -0.6 -----L Neck: -0.7 -----R Total: 0.0 -----L Total: 0.4 Bone mineral density has: Decreased -10.1% since study of: 09-19-19 FRAX%s: The graph provided illustrates a 16% chance for a major osteoporotic fx and a 2.9% chance for the hips probability for fx in 10 years time. IMPRESSION: Osteopenia (T Score between -2.5 and -1). There is slightly increased risk of fracture and the patient may be considered for treatment. Re-Screen 2-5 years. NOTE: T-SCORE=SD OF THE YOUNG ADULT MEAN.
--- NOTE | 2023-10-09 20:17 | MM ---
Reason for Exam: Screening (asymptomatic). Last mammogram was performed 1 year(s) and 2 month(s) ago. Patient History: Menarche at age 13. First Full-Term at age 22. Postmenopausal. Maternal grandmother had breast cancer. Risk Values: Amber 5 year model risk: 1.6%. NCI Lifetime model risk: 4.1%. Prior Study Comparison: 05/21/2017 Bilateral Screening Mammogram, [facility]. 09/19/2019 Bilateral Screening Mammogram, [facility]. 07/29/2022 Bilateral MG 3D screening mammo w/cad, [facility]. Tissue Density: There are scattered fibroglandular densities. Findings: Analyzed By CAD. There is no suspicious group of microcalcifications or new suspicious mass in either breast. Overall Assessment: Negative, BI-RAD 1 Management: Screening Mammogram of both breasts in 1 year. . Patient should continue monthly self-breast exams. A clinical breast exam by your physician is recommended on an annual basis. This exam should not preclude additional follow-up of suspicious palpable abnormalities. Note on Amber scores and lifetime risk: 1. A Amber score greater than 3% is considered moderate risk. If this is the case, consider specialist referral to assess eligibility for a risk reducing agent. 2. If overall lifetime risk for the development of breast cancer is 20% or higher, the patient may qualify for future screening with alternating mammogram and breast MRI. Electronically signed and approved by: Valencia Malik M.D. Radiologist
== END | disposition home or self-care (01) ==
LOC: RADMAMWWP 12:52
PROVIDERS: ATTEND Family Medicine
DX: Z12.31 Encounter for screening mammogram for malignant neoplasm of breast (principal); M85.89 Other specified disorders of bone density and structure, multiple sites; Z80.3 Family history of malignant neoplasm of breast; Z78.0 Asymptomatic menopausal state
CPT/HCPCS: 77063; 77067; 77080

== ENCOUNTER 2024-07-29 08:52 | Day surgery (SDC) | payer MEDICARE, OTHER ==
[2024-07-28 09:23] VITALS: BMI 39.0
[2024-07-29 09:27] VITALS: TEMP 97.5
[2024-07-29] MEDS: IV FLUID CONTINUATION 1,000 ML IV ONE (09:45)
[2024-07-29] MEDS: LACTATED RINGERS 1,000 ML IV SCH (09:46)
[2024-07-29] MEDS ORDERED: LIDOCAINE 2% (PF) 20 MG/ML 5 ML VIAL ONE (10:04)
[2024-07-29] MEDS ORDERED: PROPOFOL 10 MG/ML 20 ML VIAL IV ONE (10:04)
--- NOTE | 2024-07-29 10:27 | P.PCN ---
Date of Procedure: 07/29/24 Procedure(s) Performed: Brief history: Patient is a pleasant 74-year-old white female scheduled for an elective upper endoscopy as well as colonoscopy as a part of evaluation of iron deficiency anemia and prior history of colon polyps Procedure performed: Esophagogastroduodenoscopy with argon plasma coagulation Colonoscopy with snare polypectomy Preoperative diagnosis: Iron deficiency anemia History of colon polyps Anesthesia: MAC Procedure: After informed consent was obtained from the patient was brought into the endoscopy unit and IV sedation was administered by anesthesia under continuous monitoring. Initially upper endoscopy was done. The Olympus GF 160 video endoscope was inserted inserted into the mouth and esophagus intubated without any difficulty and was gradually advanced into the stomach and duodenum and carefully examined. The bulb and second part of the duodenum appeared normal. The scope was then withdrawn into the stomach adequately insufflated with air and upon careful examination the antrum had linear areas of telangiectasias consistent with gastric antral vascular ectasia. Argon plasma coagulation was performed because of the body, cardia and fundus appeared normal. The scope was then withdrawn into the esophagus. The GE junction was located at 40 cm to the incisors. It appeared regular with no erythema erosions or ulcerations. Rest of the esophagus appeared normal. Patient tolerated the procedure well. At this time the patient continued to remain sedation. Initial digital rectal examination was normal. Olympus CF 160 video colonoscope was then inserted into the rectum and gradually advanced to the cecum without any difficulty. Careful examination was performed as the scope was gradually being withdrawn. The prep was fair. The cecum, ascending colon, appeared normal. The transverse colon there was a 5 mm and 6 mm sessile polyp removed by cold snare polypectomy. In the descending colon there was another 5 mm polyp removed by cold snare polypectomy. Moderate left-sided diverticulosis seen. Rest of the transverse colon, descending colon, sigmoid colon and rectum appeared normal. Retroflexion was performed in the rectum and no lesions were noted. Patient tolerated the procedure well. Impression: 1. Upper endoscopy revealed gastric antral vascular ectasia with some oozing s/p argon plasma coagulation as described above. 2. Colonoscopy revealed 5 mm and 6 mm transverse colon polyp status post cold snare polypectomy and a 5 mm descending colon polyp status post cold snare polypectomy and moderate sigmoid diverticulosis Recommendations: Findings of this examination were discussed with the patient as well as her family. She was advised to resume iron supplements daily. Recommend repeat colonoscopy in in 5 years based on the biopsy results. Monitor CBC periodically..
[2024-07-29 11:28] VITALS: BP 120/70; PULSE 58; RESP 18
== END 2024-07-29 11:28 | disposition home or self-care (01) ==
LOC: ORWHC2ENDO 08:52
PROVIDERS: ATTEND Internal Medicine Gastroenterology
DX: D12.3 Benign neoplasm of transverse colon (principal); D12.4 Benign neoplasm of descending colon; K31.819 Angiodysplasia of stomach and duodenum without bleeding; K57.30 Diverticulosis of large intestine without perforation or abscess without bleeding; D50.9 Iron deficiency anemia, unspecified; I10 Essential (primary) hypertension; K44.9 Diaphragmatic hernia without obstruction or gangrene; E78.5 Hyperlipidemia, unspecified; E03.9 Hypothyroidism, unspecified; I73.00 Raynaud's syndrome without gangrene; Z88.5 Allergy status to narcotic agent; Z79.890 Hormone replacement therapy; Z79.899 Other long term (current) drug therapy; Z79.82 Long term (current) use of aspirin
CPT/HCPCS: 45385; 43270; J2704; J2003; 88305

== ENCOUNTER 2024-09-05 08:43 | Day surgery (SDC) | payer MEDICARE, OTHER ==
[~2024-09-05 08:43] MED LIST changes: -DEXAMETHASONE SOD PHOSPHATE 4 MG/ML 1 ML VIAL IV ONE; -HYDROmorphone 0.5 MG/0.5 ML SYRINGE IVP PRN; -LACTATED RINGERS 1,000 ML IV SCH; -LIDOCAINE 1% (10MG/ML) FOR IV START INTRADERMA PRN; -MIDAZOLAM 2 MG/2 ML VIAL IV PRN; -ONDANSETRON 4 MG/2 ML VIAL IVP ONE; +Pre Op ABX Message 1 EACH MISC MISCELLANE ONE
[2024-09-05] MEDS ORDERED: MIDAZOLAM 2 MG/2 ML VIAL IV PRN (09:03)
[2024-09-05] MEDS ORDERED: fentaNYL (PF) 50 MCG/ML 2 ML AMP IV PRN (09:03)
[2024-09-05] MEDS: IV FLUID CONTINUATION 1,000 ML IV ONE ×2 (09:05→09:32)
[2024-09-05 09:11] VITALS: TEMP 97.4
[2024-09-05] MEDS: ACETAMINOPHEN TAB 500 MG TAB PO PRN (09:14)
--- NOTE | 2024-09-05 09:17 | P.GSHP ---
History of Present Illness H&P Date: 09/05/24 CHIEF COMPLAINT: Primary thrombophilia HISTORY OF PRESENT ILLNESS: The patient is a 74-year-old female diagnosed with primary thrombophilia with requested port placement. She needs a Mediport placement for chemotherapy. PAST MEDICAL HISTORY: See list and reviewed PAST SURGICAL HISTORY: See list and reviewed CURRENT MEDICATIONS: See list and reviewed ALLERGIES: See list and reviewed SOCIAL HISTORY: See list and reviewed FAMILY HISTORY: See list and reviewed REVIEW OF ORGAN SYSTEMS: CONSTITUTIONAL: No fevers or chills RESPIRATORY: No pneumonia. No dyspnea on exertion. CARDIOVASCULAR: No recent chest pain. No history of blood clots PHYSICAL EXAMINATION: Vital signs: Stable GENERAL: Well developed and in no acute distress. Pleasant. HEENT: No sclera icterus. Extraocular movements grossly intact. Moist buccal mucosa. Head is atraumatic, normocephalic. Hears conversational speech. No nasal drainage. NECK: Supple without lymphadenopathy. No JV distention. CHEST: Non-labored respirations and equal bilateral excursions. CARDIOVASCULAR: Regular rate and rhythm. Palpable 2+ radial pulses. ABDOMEN: Nontender. MUSCULOSKELETAL: No clubbing, cyanosis or edema. NEUROLOGIC: No focal or lateralizing signs. PSYCH: Appropriate affect. Alert and oriented to person, place and time. ASSESSMENT: 1. Primary thrombophilia 2. Need for chemotherapeutic access. PLAN: 1. Port-A-Cath placement for chemotherapy access Past Medical History Past Medical History: Blood Disorder, Deep Vein Thrombosis (DVT), GERD/Reflux, Hyperlipidemia, Hypertension, Myocardial Infarction (DE), Mitral Valve Prolapse (MVP), Osteoarthritis (OA), Pulmonary Embolus (PE), Thyroid Disorder, Vascular Disorder Additional Past Medical History / Comment(s): hx ulcers/multiple stomach bleeds, hiatal hernia, low hemoglobin since teen,( gets iron infusion)PVD, migraines, MVP with regurgitation, Factor V Leiden, DVTs bilateral legs, PE laterality unknown. Aortic aneurysm 4.5 cm on back of heart 08/14, DE in the past on EKG. difficult iv start, leg edema Last Myocardial Infarction Date:: ? History of Any Multi-Drug Resistant Organisms: None Reported Past Surgical History: Bariatric Surgery, Bowel Resection, Cholecystectomy, Hernia Repair, Joint Replacement, Orthopedic Surgery Additional Past Surgical History / Comment(s): GASTRIC SLEEVE, EGDs, colonoscopies, RT ANKLE SURGERY, "bowel release x 2", bilateral cataracts removed, vena cava filter. Right Knee replacement. Bl stents in iliac. egd. ablation to bleeds in stomach. "watermelon gut" Past Anesthesia/Blood Transfusion Reactions: Postoperative Nausea & Vomiting (PONV) Additional Past Anesthesia/Blood Transfusion Reaction / Comment(s): Gets post op migraine for 5 days with each procedure. (?from Morphine). no blood transfusion reaction Smoking Status: Former smoker - Past Family History Father Family Medical History: Cancer, Deep Vein Thrombosis (DVT) Additional Family Medical History / Comment(s): colon Mother Family Medical History: Cancer, Deep Vein Thrombosis (DVT) Additional Family Medical History / Comment(s): bladder Daughter(s) Family Medical History: Cancer Additional Family Medical History / Comment(s): breast cancer Medications and Allergies Home Medications Medication Instructions Recorded Confirmed Type rOPINIRole HCL [Requip] 3 - 9 mg PO HS PRN 11/01/19 09/05/24 History Omeprazole 20 mg PO QAM 07/13/20 09/05/24 History Aspirin EC [Ecotrin Low Dose] 81 mg PO HS 06/07/22 09/05/24 History Levothyroxine Sodium [Synthroid] 125 mcg PO QAM 06/07/22 09/05/24 History Rosuvastatin Calcium [Crestor] 40 mg PO HS 06/07/22 09/05/24 History Acetaminophen Tab [Tylenol] 325 mg PO Q4-6H PRN 05/07/23 09/02/24 History Furosemide [Lasix] 20 mg PO DAILY PRN 07/29/24 09/05/24 History Losartan [Cozaar] 50 mg PO HS 07/29/24 09/05/24 History Allergies Allergy/AdvReac Type Severity Reaction Status Date / Time nifedipine [From Procardia] Allergy Severe Anaphylaxis Verified 09/05/24 09:06 codeine Allergy Swelling,mi Verified 09/05/24 09:06 graine morphine Allergy Swelling,mi Verified 09/05/24 09:06 graine Surgical - Exam Vital Signs Temp Pulse Resp BP Pulse Ox 97.4 F L 60 16 204/83 99 09/05/24 09:10 09/05/24 09:10 09/05/24 09:10 09/05/24 09:10 09/05/24 09:10
[2024-09-05] MEDS: LACTATED RINGERS 1,000 ML IV SCH (09:32)
[2024-09-05] MEDS: ONDANSETRON 4 MG/2 ML VIAL IVP PRN (09:34)
[2024-09-05] MEDS: HEPARIN SODIUM,PORCINE 5,000 UNIT/ML 1 ML VIAL SQ PRN (09:34)
[2024-09-05] MEDS: LIDOCAINE 1%-EPI 1:100,000 20 ML VIAL SQ ONE ×2 (09:49→11:37)
[2024-09-05] MEDS: HEPARIN SODIUM,PORCINE 100 UNIT/ML 5 ML VIAL IV ONE (09:50)
[2024-09-05] MEDS ORDERED: LIDOCAINE 1% INJ 10MG/ML (20 ML MDV) ONE (10:58)
[2024-09-05] MEDS ORDERED: ePHEDrine 50 MG/ML 1 ML VIAL ONE (10:58)
[2024-09-05] MEDS ORDERED: fentaNYL (PF) 50 MCG/ML 2 ML AMP ONE (10:58)
[2024-09-05] MEDS ORDERED: ceFAZolin 1 GM/50 ML BAG (PMX) ONE (10:58)
[2024-09-05] MEDS ORDERED: SUCCINYLCHOLINE CHLORIDE 200 MG/10 ML VIAL IV ONE (10:58)
[2024-09-05] MEDS ORDERED: PROPOFOL 10 MG/ML 20 ML VIAL IV ONE (10:58)
[2024-09-05] MEDS ORDERED: GLYCOPYRROLATE 0.2 MG/ML 2 ML VIAL ONE (10:58)
[2024-09-05] MEDS: SODIUM CHLORIDE 0.9% 50 ML with ceFAZolin 2,000 MG IV ONE (11:20)
--- NOTE | 2024-09-05 12:08 | P.PCN ---
Date of Procedure: 09/05/24 Description of Procedure: SURGEON: STEPHANE WELLS MD TRANSFER IRON OPERATOR: None. PREOPERATIVE DIAGNOSES: 1. Primary thrombophilia 2. Need for chemotherapeutic access. 3. Obesity excess calories, BMI 40.9 4. History of sleeve gastrectomy 5. Severe iron deficiency 6. Poor venous access POSTOPERATIVE DIAGNOSES: 1. Primary thrombophilia 2. Need for chemotherapeutic access. 3. Obesity excess calories, BMI 40.9 4. History of sleeve gastrectomy 5. Severe iron deficiency 6. Poor venous access PROCEDURES PERFORMED: 1. Ultrasound guided central venous access of the right internal jugular venous vein. 2. Fluoroscopic guidance for central venous access right internal jugular vein less than 1 seconds. 3. Placement of right internal jugular power port 6 Irish by Attune, Iterasiela Plus Port ANESTHESIA: LMA sedation with local. ESTIMATED BLOOD LOSS: 20 mL. SPECIMENS REMOVED: None. COMPLICATIONS: None. FINDINGS: 1. No thrombus encountered along the right carotid artery or internal jugular vein. 2. Access of the right internal jugular vein under ultrasound guidance. 3. Fluoroscopy of less than 1 seconds. 4. Moderately thick neck with redundant tissue adding difficulty to the case INDICATIONS: The patient is a 74-year-old female diagnosed with primary thrombophilia. She presents for chemotherapeutic access. Benefits and risks of surgical intervention were described including bleeding, infection, mechanical problems with his port. Informed consent was obtained. DESCRIPTION OR PROCEDURE: Patient was brought into the operating room, laid in supine position. After adequate IV sedation, the chest and right neck were prepped and draped in a standard sterile fashion including the shoulder with ChloraPrep. Timeout protocol was confirmed with the surgical team regarding the patient's name, procedure to be performed including preoperative medications for which she received IV antibiotics. Bilateral SCDs were placed. An ultrasound was used to capture views of the right internal jugular vein including right carotid artery, which was patent and without thrombus along its course. The right IJ was then localized using anesthetic for the skin. A 16 Irish needle was used to access the IJ. A guidewire was advanced into the IJ with dark nonpulsatile venous blood. Two fingerbreadths distal to the clavicle, on the lateral third, a transverse 1.5 to 2 cm incision was deepened into the skin after localizing the skin. A pocket was created for the port. The port on the back table was flushed with heparinized saline and then attached to the catheter tubing. An adapter was fastened to the actual port site over the tubing. The port easily had fit snug into the pocket. A subcutaneous tunneler was placed along the open end of the tubing and brought out through the separate stab incision. Fluoroscopic guidance confirmed no kinking along the tubing and the port site. Next, the J-wire was exchanged for a catheter sheath for which the tubing was cut to 25 cm and then advanced through the catheter sheath. The Peel-away sheath was then removed and the tubing was secured at the junction of the superior vena cava as well as the right atrium. The tubing was found to be crossed however functional. This was all done under fluoroscopic guidance under 1 seconds. Easy pullback as well as return and aspiration was obtained of the port site. The skin incision was closed using layers using 3-0 Vicryl for the subcu followed by 4-0 Monocryl in a running subcuticular fashion. At the stick site this was also reapproximated using 4-0 Monocryl. The incisions were covered with Optifoam, The skin was cleansed and Exofin liquid glue was applied. Optifoam dressing was placed over the port site. A total of 30 mL of local anesthetic was placed. At the end of the procedure, needle, sponge, and instrument count was verified correct by surgical supervisor. Heparin lock of 5 mL was placed. The patient was awoken and pain free and taken to the second stage postanesthesia care unit. The patient tolerated the procedure well. Plan - Discharge Summary Discharge Rx Participant: No New Discharge Prescriptions: No Action rOPINIRole HCL [Requip] 3 - 9 mg PO HS PRN PRN Reason: restless legs Omeprazole 20 mg PO QAM Rosuvastatin Calcium [Crestor] 40 mg PO HS Levothyroxine Sodium [Synthroid] 125 mcg PO QAM Aspirin EC [Ecotrin Low Dose] 81 mg PO HS Acetaminophen Tab [Tylenol] 325 mg PO Q4-6H PRN PRN Reason: Pain Losartan [Cozaar] 50 mg PO HS Furosemide [Lasix] 20 mg PO DAILY PRN PRN Reason: swelling Discharge Medication List rOPINIRole HCL [Requip] 3 - 9 mg PO HS PRN 11/01/19 [History] Omeprazole 20 mg PO QAM 07/13/20 [History] Aspirin EC [Ecotrin Low Dose] 81 mg PO HS 06/07/22 [History] Levothyroxine Sodium [Synthroid] 125 mcg PO QAM 06/07/22 [History] Rosuvastatin Calcium [Crestor] 40 mg PO HS 06/07/22 [History] Acetaminophen Tab [Tylenol] 325 mg PO Q4-6H PRN 05/07/23 [History] Furosemide [Lasix] 20 mg PO DAILY PRN 07/29/24 [History] Losartan [Cozaar] 50 mg PO HS 07/29/24 [History]
--- NOTE | 2024-09-05 12:30 | FL ---
EXAMINATION TYPE: FL guidance operating room DATE OF EXAM: 09/05/2024 12:03 PM COMPARISON: Pre Operative Images if available both CT/MRI or plain film CLINICAL INDICATION: Female, 74 years old with history of INSERTION OF PORT A CATH PRIMARY THROMBOPHI DORI; TECHNIQUE: FL guidance operating room, multiple fluoroscopic images provided for procedure. Total fluoroscopy time: 0.6 seconds Total submitted images to PACS: [id number] DAP: 0.1642 mGym2 Gycm2 uGym2 cGycm2 or equivalent. FINDINGS: Fluoroscopic imaging for Port-A-Cath insertion no evidence for pneumothorax. Multilevel degeneration changes of the spine. IMPRESSION: 1. No evidence for intraoperative complication. 2. Please see the operative/procedural note for further details. [facility], , 09/05/2024 12:28 PM
--- NOTE | 2024-09-05 12:33 | XR ---
EXAMINATION TYPE: XR chest 1V confirm line plcmt DATE OF EXAM: 09/05/2024 12:25 PM COMPARISON: Chest radiographs from 06/07/2022 CLINICAL INDICATION: Female, 74 years old with history of Port placement; TECHNIQUE: XR chest 1V confirm line plcmt Frontal view of the chest. FINDINGS: Lungs/Pleura: There is no evidence of pleural effusion, focal consolidation, or pneumothorax. Pulmonary vascularity: Unremarkable. Heart/mediastinum: Cardiomediastinal silhouette is unremarkable. Musculoskeletal: No acute osseous pathology. Right [id number] in appropriate position. IMPRESSION: No acute cardiopulmonary disease/process. [facility], , 09/05/2024 12:30 PM
[2024-09-05 12:45] VITALS: RESP 17
[2024-09-05 13:01] VITALS: BP 152/83; PULSE 66
== END 2024-09-05 13:51 | disposition home or self-care (01) ==
LOC: OR 08:43
PROVIDERS: ATTEND Surgery Plastic and Reconstructive Surgery
DX: D68.59 Other primary thrombophilia (principal); D68.51 Activated protein C resistance; I10 Essential (primary) hypertension; E78.5 Hyperlipidemia, unspecified; I25.2 Old myocardial infarction; E66.813 Obesity, class 3; E61.1 Iron deficiency; I34.1 Nonrheumatic mitral (valve) prolapse; K21.9 Gastro-esophageal reflux disease without esophagitis; M19.90 Unspecified osteoarthritis, unspecified site; Z68.41 Body mass index [BMI] 40.0-44.9, adult; Z79.890 Hormone replacement therapy; Z86.711 Personal history of pulmonary embolism; Z86.718 Personal history of other venous thrombosis and embolism; Z87.891 Personal history of nicotine dependence; Z90.49 Acquired absence of other specified parts of digestive tract; Z98.84 Bariatric surgery status; Z98.890 Other specified postprocedural states
CPT/HCPCS: 36561; C1788; J0330; J1644; J1642; J2405; J0690 ×2; J2003; J3010; J2704; J1596

== ENCOUNTER → 2024-11-18 | Outpatient (CLI) | payer MEDICARE, OTHER ==
--- NOTE | 2024-11-18 11:52 | MM ---
Reason for Exam: Screening (asymptomatic). Last mammogram was performed 1 year(s) and 1 month(s) ago. Patient History: Menarche at age 13. First Full-Term at age 22. Postmenopausal. Maternal grandmother had breast cancer. Daughter had breast cancer, bilateral, age 45. Risk Values: Amber 5 year model risk: 3.4%. NCI Lifetime model risk: 8.2%. Prior Study Comparison: 09/19/2019 Bilateral Screening Mammogram, [facility]. 07/29/2022 Bilateral MG 3D screening mammo w/cad, [facility]. 10/08/2023 Bilateral MG 3D screening mammo w/cad, [facility]. Tissue Density: There are scattered areas of fibroglandular density. Findings: Analyzed By CAD. Right breast: There is no suspicious group of microcalcifications or new suspicious mass. Left breast: There is no suspicious group of microcalcifications or new suspicious mass. Overall Assessment: Negative, BI-RAD 1 Management: Screening Mammogram of both breasts in [address] [facility] will attempt to contact patient to return for supplemental views and ultrasound if indicated. Patient should continue monthly self-breast exams. A clinical breast exam by your physician is recommended on an annual basis. This exam should not preclude additional follow-up of suspicious palpable abnormalities. Note on Amber scores and lifetime risk: 1. A Amber score greater than 3% is considered moderate risk. If this is the case, consider specialist referral to assess eligibility for a risk reducing agent. 2. If overall lifetime risk for the development of breast cancer is 20% or higher, the patient may qualify for future screening with alternating mammogram and breast MRI. [facility], , 11/18/2024 11:16 AM. Electronically signed and approved by: Florencio Keenan DO
== END | disposition home or self-care (01) ==
LOC: RADMAMWWP 10:25
PROVIDERS: ATTEND Family Medicine
DX: Z12.31 Encounter for screening mammogram for malignant neoplasm of breast (principal); R92.323 Mammographic fibroglandular density, bilateral breasts; Z78.0 Asymptomatic menopausal state; Z80.3 Family history of malignant neoplasm of breast
CPT/HCPCS: 77063; 77067

== ENCOUNTER → 2025-04-04 | Outpatient (CLI) | payer MEDICARE, OTHER ==
[2025-04-04 19:26] LABS: Basophils # (A) 0.05 X 10*3/uL (0.00-0.10); Basophils % (A) 1.0 %; Eosinophils # (A) 0.16 X 10*3/uL (0.04-0.35); Eosinophils % (A) 3.2 %; HCT 30.8 % (37.2-46.3); HGB 9.7 g/dL (12.0-15.0); Immature Grans, Automated 0.20 %; Lymphocytes # (A) 0.97 X 10*3/uL (0.90-5.00); Lymphocytes % (A) 19.6 %; MCH 29.1 pg (27.0-32.0); MCHC 31.5 g/dL (32.0-37.0); MCV 92.5 FL (80.0-97.0); Monocytes # (A) 0.51 X 10*3/uL (0.20-1.00); Monocytes % (A) 10.3 %; NRBC Per 100 WBC 0 X 10*3/uL (0.00-0.01); Neutrophils # (A) 3.24 X 10*3/uL (1.80-7.70); Neutrophils % (A) 65.7 %; Platelet Count 218 X 10*3/uL (140-440); RBC 3.33 X 10*6/uL (4.10-5.20); RDW 14.3 % (11.5-14.5); WBC 4.94 X 10*3/uL (4.50-10.00)
== END | disposition home or self-care (01) ==
LOC: LABWHC1 14:03
PROVIDERS: ATTEND Internal Medicine Gastroenterology
DX: D50.9 Iron deficiency anemia, unspecified (principal)
CPT/HCPCS: 36415; 85025

== ENCOUNTER 2025-04-11 08:35 | Day surgery (SDC) | payer MEDICARE, OTHER ==
[2025-04-10 11:39] VITALS: BMI 40.8
[~2025-04-11 08:35] MED LIST changes: +LIDOCAINE 1% (10MG/ML) FOR IV START INTRADERMA PRN; -Pre Op ABX Message 1 EACH MISC MISCELLANE ONE
[2025-04-11 09:00] VITALS: TEMP 97.8
[2025-04-11] MEDS: LACTATED RINGERS 1,000 ML IV SCH (09:04)
[2025-04-11] MEDS: IV FLUID CONTINUATION 1,000 ML IV ONE (09:04)
[2025-04-11] MEDS ORDERED: LIDOCAINE 1% INJ 10MG/ML (20 ML MDV) ONE (09:55)
[2025-04-11] MEDS ORDERED: PROPOFOL 10 MG/ML 20 ML VIAL IV ONE (09:55)
--- NOTE | 2025-04-11 10:06 | P.PCN ---
Date of Procedure: 04/11/25 Procedure(s) Performed: BRIEF HISTORY: Patient is a 75-year-old, pleasant, white female scheduled for an upper endoscopy as a part evaluation of black stools for the last 1 week duration. She has history of gastric antral vascular ectasia for which she underwent EGD with argon plasma coagulation in July 2024.. PROCEDURE PERFORMED: Esophagogastroduodenoscopy with argon plasma coagulation.. PREOPERATIVE DIAGNOSIS: Melena and anemia and history of gastric antral vascular ectasia. IV sedation per anesthesia. PROCEDURE: After informed consent was obtained, the patient was brought into the endoscopy unit. IV sedation was administered by Anesthesia under continuous monitoring. Initially the Olympus GIF-140 video endoscope was inserted into the mouth. Esophagus intubated without any difficulty. It was gradually advanced into the stomach and duodenum and carefully examined. The bulb and the second part of the duodenum appeared normal. The scope at this time was withdrawn to the stomach, adequately insufflated with air, and upon careful examination, mucosa of the antrum had multiple linear areas of gastric vascular ectasia which were all coagulated using argon plasma with good hemostasis. There were several areas that had active oozing identified. Because of the, body, cardia and the fundus appeared normal. The scope was then withdrawn into the esophagus. The GE junction was located at 39 cm from the incisors. The esophagus appeared normal. There were no erosions or ulcerations seen and the patient tolerated the procedure well. IMPRESSION: 1. Gastric antral vascular ectasia with some oozing noted in the antrum of the stomach status post argon plasma coagulation as described above. 2. Rest of the stomach appeared normal. RECOMMENDATIONS: The findings of this examination were discussed with the patient as well as her family. She will continue with iron supplements. Monitor CBC periodically. Follow-up in the office in 3 months..
[2025-04-11 10:43] VITALS: BP 104/53; PULSE 79; RESP 18
== END 2025-04-11 11:06 | disposition home or self-care (01) ==
LOC: ORWHC2ENDO 08:35
PROVIDERS: ATTEND Internal Medicine Gastroenterology
DX: K31.811 Angiodysplasia of stomach and duodenum with bleeding (principal); D50.0 Iron deficiency anemia secondary to blood loss (chronic); I11.0 Hypertensive heart disease with heart failure; I50.9 Heart failure, unspecified; I25.10 Atherosclerotic heart disease of native coronary artery without angina pectoris; E78.5 Hyperlipidemia, unspecified; E07.9 Disorder of thyroid, unspecified; M19.90 Unspecified osteoarthritis, unspecified site; D68.51 Activated protein C resistance; K21.9 Gastro-esophageal reflux disease without esophagitis; Z86.718 Personal history of other venous thrombosis and embolism; Z86.711 Personal history of pulmonary embolism; Z79.82 Long term (current) use of aspirin; Z79.890 Hormone replacement therapy; Z88.5 Allergy status to narcotic agent; Z88.8 Allergy status to other drugs, medicaments and biological substances
CPT/HCPCS: 43255; J2003; J2704